=== PATIENT | male | born 1985 | race Caucasian/White ===

== ENCOUNTER 2021-04-05 10:16 | Emergency (ER) | payer OTHER, SELFPAY ==
[2020-04-16 07:10] VITALS: BMI 47.6
[2021-04-05 10:17] VITALS: BP 119/78; PULSE 86; RESP 16; TEMP 35.9; O2SAT 96; BMI 44.7
--- NOTE | 2021-04-05 10:57 | US_ITS ---
STUDY: ABDOMINAL ULTRASOUND - RIGHT UPPER QUADRANT REASON FOR VISIT: Male, 35 years old right upper quadrant pain. Nausea and vomiting. TECHNIQUE: Ultrasound evaluation of the right upper quadrant was performed with real-time and static schaffer-scale imaging. TECHNICAL QUALITY: Adequate. Examination limited due to a combination of factors including obesity and bowel gas. COMPARISON: None. FINDINGS: Liver: The liver measures 17 cm. There is increased echogenicity consistent with fatty infiltration. The bile ducts are within normal limits. There is hepatic color flow. The direction of portal flow is hepatopetal. There is a 1.4 cm x 1.6 cm x 1 cm cyst in the left lobe of the liver. Gallbladder: Normal distended gallbladder. The gallbladder wall measures 2.5 mm. There is a negative sonographic Raya''s sign. There is no pericholecystic fluid. There are no gallstones. Common Bile Duct (C.B.D.): The common bile duct measures 4.1 mm. Pancreas: There is nonvisualization of the pancreas due to overlying bowel gas.. Right Kidney: Normal size of the right kidney. The right kidney measures 11.2 cm x 6 cm x 4.7 cm. Normal renal cortex. The right cortex measures 1.7 cm. There is no demonstrated renal mass or cyst. There is no right hydronephrosis. US/Gallbladder IMPRESSION: 1.4 cm x 1.6 x 2 x 1 cm cyst in the left lobe of the liver. Fatty infiltration of the liver. Electronically Signed: Josh Marcelo MD at 12:30 EDT , Service support ,
[2021-04-05] MEDS: Ondansetron 4 MG/2 ML Vial IV (11:07)
[2021-04-05 11:08] LABS: Absolute Lymphocyte Count 0.53 X10^3/uL (0.83-4.51); Absolute Neutrophil Count 15.1 X10^3/uL (2.0-7.7); Basophil# 0.03 X10^3/uL; Basophil% 0.2 % (0-1); Eosinophils% 0.6 % (0-5); Hemoglobin 16.7 g/dL (13.0-16.5); Lymphocyte # 0.53 X10^3/ul (0.83-4.51); Lymphocyte % 3.2 % (19-41); Mean Corp Hgb Conc 34.8 g/dL (32-36); Mean Corpuscular Hgb 29.2 pg (27.0-32.0); Mean Corpuscular Volume 84.1 fL (80-94); Mean Platelet Vol. 9.1 fl (6.2-12.0); Monocyte# 0.59 X10^3/uL; Monocyte% 3.6 % (0-10); NRBC Flagged by Analyzer 0 % (0-5); Neutrophil # 15.11 X10^3/uL (2.7-7.7); POSITIVE DIFFERENTIAL YES; Platelet Count 259 K/mm3 (150-450); RBC Distribution Width CV 11.9 % (11.6-14.6); RBC Distribution Width SD 36.2 fl (35.1-43.9); Red Blood Count 5.71 M/mm3 (4.6-6.2); White Blood Count 16.4 K/mm3 (4.4-11.0)
[2021-04-05 11:10] LABS: Differential Indicated SCAN CRITERIA MET
[2021-04-05] MEDS: Morphine 4 MG/ML Syringe IV (11:10)
[2021-04-05 11:24] LABS: ALB/GLOB Ratio 1.1 RATIO (0.9-2.4); AST(SGOT) 13 U/L (15-37); Alanine Aminotransfer ALT/SGPT 31 U/L (16-61); Alkaline Phosphatase 79 U/L (45-117); Anion Gap 5 (5-15); BUN 17 mg/dL (7-18); BUN/Creat Ratio 14.5 RATIO (10-20); Calcium,Total 8.6 mg/dL (8.5-10.1); Chloride 107 mmol/L (98-107); Creatinine, Serum 1.17 mg/dL (0.70-1.30); EST Glomerular Filtration Rate 75 mL/min (>60); Est Glom Filt Rate - Afr Amer 91 mL/min (>60); Estimated Creatinine Clearance 82.39 ml/min; Globulin 3.7 g/dL (2.2-4.2); Glucose 121 mg/dL (74-106); Lipase 457 U/L (73-393); Potassium 4.2 mmol/L (3.5-5.1); Protein, Total 7.7 g/dL (6.4-8.2); Sodium Level 139 mmol/L (136-145)
[2021-04-05 11:40] LABS: Differential Comment SCANNED
[2021-04-05 12:16] VITALS: RESP 16
--- NOTE | 2021-04-05 12:33 | CT_ITS ---
STUDY: CT ABDOMEN AND PELVIS WITH CONTRAST REASON FOR EXAM: Male, 35 years old. Right upper quadrant pain. Nausea and vomiting. RADIATION DOSAGE (If Supplied By Facility): CTDIvol = ( 14.18 ) mGy, DLP = ( 1173.63 ) mGycm TECHNIQUE: Transaxial images were obtained from the dome of the diaphragm to the symphysis pubis without oral contrast. IV 100ML ISOVUE 300 was administered. Sagittal and coronal images were reconstructed. Individualized dose optimization techniques were used for this CT. COMPARISON: Comparison is made with prior study dated 12/13/2016. FINDINGS: The visualized lung bases are unremarkable. The visualized portions of the heart are within normal limits. There is a 1.6 m cyst in the medial aspect of the right lobe of the liver in the region of the dome. Normal gallbladder and extrahepatic biliary system. Normal spleen. Normal pancreas. Normal bilateral adrenal glands. Normal right kidney. Normal left kidney. Normal visualized stomach. Normal small intestine. Normal colon. The appendix is visualized and appears normal. Normal abdominal aorta. Normal inferior vena cava. Normal retroperitoneum. Normal urinary bladder. Normal abdominal wall. Normal osseous structures. CT/Abdomen/Pelvis W IV Cont ONLY IMPRESSION: Normal enhanced CT of the abdomen and pelvis. Electronically Signed: Josh Marcelo MD at 13:38 EDT , Service support ,
[2021-04-05 14:00] VITALS: RESP 16
--- NOTE | 2021-04-05 14:35 | EX.ED.DYSGE1 ---
HPI History of Present Illness Chief Complaint: Abd Pain Informant: patient Narrative Narrative: 35-year-old male presenting with abdominal pain, nausea, vomiting. Patient states he woke up with these symptoms this morning. He states he ate a large quantity of food last night but does not believe he ate anything that was undercooked. He has had one episode of vomiting with persistent nausea. Denies blood in his emesis. Denies fever. Denies sick contacts. Prior similar symptoms: Yes Recent Illness/Hospitalization: No PFSH PFS Medical History (Updated 04/05/21 @ 14:[address] Shanelle Bowles MD) Asthma Home Medications ondansetron 4 mg PO Q8H PRN PRN #10 tab 12/13/16 [Rx Last Taken 04/05/21 09:45] ondansetron 4 mg PO Q8H PRN PRN #10 tab 04/05/21 [Rx Last Taken Unknown] Allergy/AdvReac Type Severity Reaction Status Date / Time NUTS Allergy Other Uncoded 04/05/21 10:17 Social History Smoking Status: Never smoker ROS ROS ED Constitutional Constitutional ED: Denies fever(s) Eyes Eyes: Denies change in vision ENT ENT ED: Denies rhinorrhea or sore throat Cardiovascular Cardiovascular: Denies chest pain or palpitations Respiratory/Chest Respiratory/Chest: Denies cough or dyspnea Gastrointestinal Gastrointestinal: Reports abdominal pain, nausea and vomiting; Denies diarrhea Genitourinary Genitourinary ED: Denies dysuria Musculoskeletal Musculoskeletal: Denies myalgias Integumentary Denies rash Neurologic Neurologic: Denies headache(s) Psychiatric Psychiatric: Denies suicidal thoughts EXAM Physical Exam Const Vital Signs: 04/05/21 10:17 04/05/21 12:16 04/05/21 14:00 Temperature 96.6 F L Temperature Source Temporal Pulse Rate 86 Respiratory Rate 16 16 16 Blood Pressure 119/78 Blood Pressure Mean 91 Pulse Ox 96 Oxygen Delivery Method Room Air Positive well nourished and well developed General Appearance ED: well developed HEENT Reports normocephalic and head/scalp atraumatic Eyes PERRL and EOMs intact bilaterally Neck supple General: Negative for tenderness Chest Wall inspection of chest normal Resp normal respiratory effort and clear to auscultation bilaterally Cardio regular rate and regular rhythm GI non-distended Palpation: soft and tender RUQ; Negative for guarding or rebound tenderness present no CVA tenderness Back/Spine no CVA tenderness Extremity normal to inspection Neuro oriented x3 Sensorium / Orientation: alert Psych mental status grossly normal Skin no rashes or lesions noted MDM MDM MDM Narrative Medical decision making narrative: Patient given morphine, Zofran IV. CBC shows white count 16.4. Chemistries unremarkable other than lipase 457. Gallbladder ultrasound shows 1.4 cm x 1.6 x 2 x 1 cm cyst of the left lobe of the liver. CT abdomen pelvis shows no acute process. On reevaluation, patient is resting comfortably. He is given a prescription for Zofran. Advised follow-up with his primary care physician. Advised signs and symptoms for which to return to the ED. Lab Data Attestation: I reviewed the patient's lab results. Labs: Laboratory Results - last 24 hr 04/05/21 04/05/21 11:00 11:00 WBC 16.4 H RBC 5.71 Hgb 16.7 H Hct 48.0 MCV 84.1 MCH 29.2 MCHC 34.8 RDW Std Deviation 36.2 RDW Coeff of Rachel 11.9 Plt Count 259 MPV 9.1 Immature Gran % (Auto) 0.400 Neut % (Auto) 92.0 H Lymph % (Auto) 3.2 L Orange % (Auto) 3.6 Eos % (Auto) 0.6 Baso % (Auto) 0.2 Absolute Neuts (auto) 15.1 H Absolute Lymphs (auto) 0.53 L Nucleated RBC % 0 Differential Comment SCANNED Sodium 139 Potassium 4.2 Chloride 107 Carbon Dioxide 27.0 Anion Gap 5 BUN 17 Creatinine 1.17 Estim Creat Clear Calc 82.39 Est GFR (MDRD) Af Amer 91 Est GFR (MDRD) Non-Af 75 BUN/Creatinine Ratio 14.5 Glucose 121 H Calcium 8.6 Total Bilirubin 0.50 AST 13 L ALT 31 Alkaline Phosphatase 79 Total Protein 7.7 Albumin 4.0 Globulin 3.7 Albumin/Globulin Ratio 1.1 Lipase 457 H Radiography Diagnostic Testing: Radiology Impression Gallbladder Ultrasound 04/05/21 10:57 IMPRESSION: 1.4 cm x 1.6 x 2 x 1 cm cyst in the left lobe of the liver. Fatty infiltration of the liver. Electronically Signed: Josh Marcelo MD at 12:30 EDT , Service support , Abdomen/Pelvis CT 04/05/21 12:33 IMPRESSION: Normal enhanced CT of the abdomen and pelvis. Electronically Signed: Josh Marcelo MD at 13:38 EDT , Service support , Discharge Plan Triage Chief Complaint: Abd Pain ED Provider: Shanelle Bowles Dx/Rx/DC Orders Clinical Impression: Abdominal pain Instructions: Abdominal Pain Prescriptions: New ondansetron 4 mg tablet,disintegrating 4 mg PO Q8H PRN PRN (Reason: Nausea) Qty: 10 RF: 0 No Action ondansetron 4 MG tablet 4 mg PO Q8H PRN PRN (Reason: Nausea) Qty: 10 RF: 0 Primary Care Provider: Care Physician,No Primary Referrals: Edis Gay MD [NON-STAFF] - Care Physician,No Primary [Primary Care Provider] - Disposition Disposition: Home, Self Care
[2021-04-05 14:52] VITALS: RESP 18
== END 2021-04-05 14:53 | disposition home or self-care (01) ==
PROVIDERS: Emergency Provider Emergency Medicine
DX: K76.89 Other specified diseases of liver (principal); K76.0 Fatty (change of) liver, not elsewhere classified; R10.11 Right upper quadrant pain; R11.2 Nausea with vomiting, unspecified
CPT/HCPCS: 74177; 76705; 80053; 83690; 85025; 96374; 96375; 99283; Q9967; A4216; J2405

== ENCOUNTER 2023-08-16 23:40 | Emergency (ER) | payer OTHER, SELFPAY ==
--- NOTE | 2023-08-16 00:04 | RAD_ITS ---
INDICATION: chest pain EXAMINATION/TECHNIQUE: X-RAY - XR Chest 1 View COMPARISON: None. FINDINGS: LINES/DEVICES: None. LUNGS: No consolidation or evidence of an effusion. No evidence of edema or a pneumothorax. MEDIASTINUM AND CARDIOVASCULAR STRUCTURES: Cardiac silhouette is normal in size and contour. Mediastinum is unremarkable. BONES AND SOFT TISSUES: No acute abnormality. RAD/Chest 1 View (Portable) IMPRESSION: No evidence of cardiopulmonary disease. Electronically Signed: Phi Basurto DO at 0:38 EST ,
[2023-08-16 23:41] VITALS: BP 201/120; PULSE 93; RESP 20; TEMP 36.4; O2SAT 94; BMI 50.5
[2023-08-17] VITALS (22 sets, daily range): BP systolic 128–178; BP diastolic 76–117; PULSE 69–96; RESP 9–20; O2SAT 92–97
[2023-08-17] MEDS: Aspirin 81 MG TAB.CHEW 324 MG PO (00:03)
[2023-08-17 00:06] LABS: Absolute Lymphocyte Count 2.92 X10^3/uL (0.83-4.51); Absolute Neutrophil Count 4.5 X10^3/uL (2.0-7.7); Basophil# 0.04 X10^3/uL; Basophil% 0.5 % (0-1); Eosinophil# 0.37 X10^3/uL; Eosinophils% 4.4 % (0-5); Hematocrit 45.8 % (40-54); Hemoglobin 15.7 g/dL (13.0-16.5); Lymphocyte # 2.92 X10^3/ul (0.83-4.51); Lymphocyte % 34.8 % (19-41); Mean Corp Hgb Conc 34.3 g/dL (32-36); Mean Corpuscular Hgb 28.1 pg (27.0-32.0); Mean Corpuscular Volume 82.1 fL (80-94); Mean Platelet Vol. 8.7 fl (6.2-12.0); Monocyte# 0.46 X10^3/uL; Monocyte% 5.5 % (0-10); NRBC Flagged by Analyzer 0 % (0-5); Neutrophil # 4.52 X10^3/uL (2.7-7.7); Platelet Count 326 K/mm3 (150-450); RBC Distribution Width SD 38.6 fl (35.1-43.9); Red Blood Count 5.58 M/mm3 (4.6-6.2); White Blood Count 8.4 K/mm3 (4.4-11.0)
[2023-08-17 00:21] LABS: Anion Gap 6 (5-15); BUN 17 mg/dL (7-18); BUN/Creat Ratio 15.9 RATIO (10-20); Calcium,Total 8.8 mg/dL (8.5-10.1); Chloride 105 mmol/L (98-107); Creatinine, Serum 1.07 mg/dL (0.70-1.30); EST Glomerular Filtration Rate 82 mL/min (>60); Est Glom Filt Rate - Afr Amer 100 mL/min (>60); Estimated Creatinine Clearance 88.37 ml/min; Glucose 145 mg/dL (74-106); Potassium 3.8 mmol/L (3.5-5.1); Sodium Level 137 mmol/L (136-145); Troponin-I HS 4 pg/mL (3.0-78.0)
--- OUTSIDE RECORDS SUMMARY | 2023-08-17 00:22 | XMS RPT_ITS | CCD ---
Author Name Unknown Address [address] [place] [address] Organization [facility] Care Team Providers Care Industrial Pipefitter Journeyman Name Role Phone Burt Ramos MD Primary Care Provider [phone] PROVIDER, UNKNOWN Referring Unavailable BURT RAMOS Primary Care Unavailable BURT RAMOS Primary Care Unavailable YENY ZARATE Attending Unavailable TRE PARKER Referring Unavailable BURT RAMOS Primary Care Unavailable TRE PARKER Referring Unavailable BURT RAMOS Primary Care Unavailable TRE PARKER Attending Unavailable BURT RAMOS Primary Care Unavailable Allergies Allergy Classification Reported Allergen(s) Allergy Type Date of Onset Reaction(s) Facility (8 sources) peanut allergenic extract; Translations: [PEANUT] Drug Allergy 03-08-2021 Itching [facility] Medications Completed/Discontinued Medications Medication Drug Class(es) Dates Sig (Normalized) Sig (Original) mupirocin 0.02 mg/mg topical ointment (2 sources) RNA Synthetase Inhibitor Antibacterial Start: 10-11-2021 End: 12-21-2021 mupirocin (BACTROBAN) 2 % ointment Apply to affected area three times daily. Use in nose as needed 15 g 2 10/11/2021 12/21/2021 Discontinued (Course of therapy completed) Problems Active Problems Problem Classification Problem Date Documented Da te Episodic/Chronic Other connective tissue disease (1 source) Synovial cyst of left popliteal space; Translations: [Synovial cyst of popliteal space [Mckeon], left knee] Episodic Otitis media and related conditions (1 source) Dysfunction of bilateral eustachian tubes; Translations: [Other specified disorders of Eustachian tube, bilateral] Episodic Residual codes; unclassified (1 source) Pain, unspecified; Translations: [Pain] Onset: 01-26-2023 Episodic Past or Other Problems Problem Classification Problem Date Documented Da te Episodic/Chronic Other connective tissue disease (1 source) Synovial cyst of popliteal space [Mckeon], left knee; Translations: [Mckeon's cyst of knee, left] Onset: 01-26-2023 Episodic Other non-traumatic joint disorders (1 source) Pain in left knee; Translations: [Acute pain of left knee] Onset: 12-22-2022 Episodic Other non-traumatic joint disorders (1 source) Effusion, left knee; Translations: [Swelling of joint of left knee] Onset: 12-22-2022 Episodic Results Test Name Value Interpretation Reference Range Facil ity Vital Signs Date Time Vital Sign Value Performing Clinician Mesfin holm 12-21-2021 13:49-0400 Body temperature 98.91 [degF] Tre Parker APRN.CHERY Work Phone: [facility] 12-21-2021 13:49-0400 Body weight 133.81 kg Tre Parker APRN.WOOD SCRAP HANDLER Work Phone: [facility] 12-21-2021 13:49-0400 Diastolic blood pressure 82 mm[Hg] Tre Parker PLANT TECHNICAL SPECIALIST.WOOD SCRAP HANDLER Work Phone: [facility] 12-21-2021 13:49-0400 Heart rate 96 /min Tre Parker PLANT TECHNICAL SPECIALIST.WOOD SCRAP HANDLER Work Phone: [facility] 12-21-2021 13:49-0400 Respiratory rate 16 /min Tre Parker PLANT TECHNICAL SPECIALIST.WOOD SCRAP HANDLER Work Phone: [facility] 12-21-2021 13:49-0400 Systolic blood pressure 120 mm[Hg] Tre Parker PLANT TECHNICAL SPECIALIST.WOOD SCRAP HANDLER Work Phone: [facility] Encounters Encounter Date Encounter Type Care Provider Facility Start: 05-24-2023 End: 05-24-2023 ambulatory BURT Ocasio [facility] Facility:[facility] Start: 01-26-2023 End: 01-26-2023 ambulatory UNKNOWN PROVIDER Facility:[facility] Start: 12-23-2022 ambulatory Pcp (Historical) [facility] Start: 12-23-2022 Telephone encounter Tre Kimberly l PLANT TECHNICAL SPECIALIST.WOOD SCRAP HANDLER Work Phone: [facility] Procedures Date Procedure Procedure Detail Performing Clinician Start: 03-08-2021 Adult depression screening assessment Tre Parker APRN.WOOD SCRAP HANDLER Work Phone: Plan of Treatment Date Care Activity Detail Author Start: 03-08-2026 LIPID SCREEN LIPID SCREEN [facility] Start: 03-07-2024 Urine microalbumin profile DTA P,TDAP,TD (3 - Td or Tdap) [facility] Start: 08-21-2022 DEPRESSION ASSESSMENT DEPRESSION ASS ESSMENT [facility] Start: 04-21-2022 Influenza vaccination INFLUENZA (#1) [facility] Start: 03-08-2022 Adult depression scr eening assessment DEPRESSION SCREENING [facility] Start: 10-27-2021 COVID-19 VACCINE (4 - Booster for Pfizer series) COVID-19 VACCINE (4 - Booster for Pfizer series) [facility] Start: 08-21-2021 DEPRESSION ASSESSMENT DEPRESSION ASS ESSMENT [facility] Immunizations Immunization Date Immunization Notes Care Provider Romeo stallworth 05-27-2022 influenza, seasonal, injectable Tre Parker APRN.WOOD SCRAP HANDLER Work Phone: [facility] 01-22-2021 COVID-19 vaccine, ag e 12+ yr (PFIZER-BIONTECH - PURPLE TOP) Tre Parker PLANT TECHNICAL SPECIALIST.WOOD SCRAP HANDLER Work Phone: [facility] 12-31-2020 COVID-19 vaccine, ag e 12+ yr (PFIZER-BIONTECH - PURPLE TOP) Tre Parker PLANT TECHNICAL SPECIALIST.WOOD SCRAP HANDLER Work Phone: [facility] 06-19-2020 influenza, injectabl e, quadrivalent, preservative free Tre Parker PLANT TECHNICAL SPECIALIST.WOOD SCRAP HANDLER Work Phone: [facility] 09-12-2014 hepatitis B vaccine, adult dosage Tre Aayush PLANT TECHNICAL SPECIALIST.WOOD SCRAP HANDLER Work Phone: [facility] 04-07-2014 hepatitis B vaccine, adult dosage Tre Aayush PLANT TECHNICAL SPECIALIST.WOOD SCRAP HANDLER Work Phone: [facility] 03-07-2014 hepatitis B vaccine, adult dosage Tre Aayush PLANT TECHNICAL SPECIALIST.WOOD SCRAP HANDLER Work Phone: [facility] 03-07-2014 tetanus toxoid, redu rasta diphtheria toxoid, and acellular pertussis vaccine, adsorbed Tre Parker APRN.WOOD SCRAP HANDLER Work Phone: [facility] 04-10-1998 measles, mumps and rubella virus vaccine Tre Parker APRN.WOOD SCRAP HANDLER Work Phone: [facility] 04-10-1998 TD(adult) unspecifie d formulation Tre Parker APRN.WOOD SCRAP HANDLER Work Phone: [facility] Payers Date Payer Category Payer Unknown MMO MMO SUPER[employer] PLUS [id number] 2020-Present [phone] [address] [place] [address] PPO [id number] 2020 Unknown [id number] 2020 Unknown [id number] Social History Date Type Detail Facility Start: 03-08-2021 End: 12-13-2022 Tobacco smoking status NHIS Never smoked tobacco [facility] Start: 03-08-2021 End: 12-13-2022 Tobacco use and exposure Smokeless tobacco non-user [facility] Start: 04-08-2021 End: 12-13-2022 Alcohol intake Current drinker of alcohol (finding) [facility] Start: 03-06-2021 History SDOH Alcohol Frequency 4 [facility] Start: 03-06-2021 End: 08-27-2021 History SDOH Alcohol Std Drinks 2 [facility] Start: 03-06-2021 History SDOH Alcohol Binge 3 [facility] Start: 03-08-2021 History SDOH Alcohol Comment 3-4 beers per week [facility] Start: 03-06-2021 End: 08-27-2021 History SDOH Social Connections Phone 1 [facility] Start: 03-06-2021 History SDOH Physica l Activity MPS 6 [facility] Start: 07-17-2021 Education 18 [facility] Start: 1985 Sex Assigned At Not on file C [facility] Clinical Notes 12-21-2021 to 05-24-2023 Rae Willis - 12/23/2022 4:45 PM EDTTelephone Encounter - Ange Urias, ILIANA - 12/23/2022 10:15 AM EDTTelephone Encounter - Tre Parker APRN.CNP - 12/23/2022 7:32 AM EDT Note Date & Type Note Facility 05-24-2023 Note HNO ID: [id number] Author: Margy Cox APRN.CHERY Service: ? Author Type: Nurse Practitioner Type: Progress Notes Filed: 05/24/2023 9:34 AM Note Text: Subjective The history is provided by the patient and the spouse. No speech and language tutor was used. HPI Eliseo Alvarez is a 37 year old male who presents today for CC of sore throat for one day. He is also having headache and body aches, fever. He has used ibuprofen with short term relief. No known exposure to strep, viral illness or covid BP 136/84 Pulse 112 Temp 37.3 ?C (99.1 ?F) Resp 18 Wt (!) 142.7 kg (314 lb 9.6 oz) SpO2 96% BMI 47.83 kg/m? Social History Tobacco Use Smoking status: Never Smokeless tobacco: Never Vaping Use Vaping Use: Never used Substance Use Topics Alcohol use: Yes Comment: 3-4 beers per week Drug use: Not Currently PAST MEDICAL HISTORY Diagnosis Date Childhood asthma without complication grew out of it I have confirmed and edited as necessary, the [facility] Review of Systems Constitutional: Positive for malaise/fatigue. Negative for chills and fever. HENT: Positive for sore throat. Negative for congestion, ear pain and sinus pain. Respiratory: Negative for cough, sputum production, shortness of breath and wheezing. Cardiovascular: Negative for chest pain. Gastrointestinal: Negative for abdominal pain, diarrhea, nausea and vomiting. Musculoskeletal: Positive for myalgias. Neurological: Positive for headaches. Objective Physical Exam Vitals and nursing note reviewed. Constitutional: Appearance: He is not toxic-appearing. HENT: Head: Normocephalic and atraumatic. Right Ear: Tympanic membrane, ear canal and external ear normal. Left Ear: Tympanic membrane, ear canal and external ear normal. Nose: No mucosal edema, congestion or rhinorrhea. Right Sinus: No maxillary sinus tenderness or frontal sinus tenderness. Left Sinus: No maxillary sinus tenderness or frontal sinus tenderness. Mouth/Throat: Pharynx: Uvula midline. Pharyngeal swelling present. No oropharyngeal exudate or posterior oropharyngeal erythema (moderate). Tonsils: No tonsillar abscesses. Cardiovascular: Rate and Rhythm: Normal rate and regular rhythm. Heart sounds: Normal heart sounds. Pulmonary: Effort: Pulmonary effort is normal. Breath sounds: Normal breath sounds. No decreased breath sounds, wheezing, rhonchi or rales. Lymphadenopathy: Head: Right side of head: No submental, submandibular, tonsillar or preauricular adenopathy. Left side of head: No submental, submandibular, tonsillar or preauricular adenopathy. Cervical: No cervical adenopathy. Right cervical: No superficial cervical adenopathy. Left cervical: No superficial cervical adenopathy. Neurological: Mental Status: He is alert. ASSESSMENT/PLAN: 1. Sore throat - ICD9: 462, ICD10: J02.9 (primary diagnosis) - STREP A MOLECULAR (POC) 2. Strep throat - ICD9: 034.0, ICD10: J02.0 - suspect strep - Group A strep molecular testing positive - Amoxicillin for 10 days. - Discussed supportive care treatment with fluids, rest and analgesia. - The patient may also use warm salt water gargles, throat lozenges and/or OTC throat spray as needed. - Contagious dz precautions discussed- including considered contagious until on antibiotics for 24 hours - The patient should follow up in one week if symptoms persist or worsen - Call back if drooling, increased temperature, symptoms of dehydration and/or still sick in one week Diagnosis and treatment plan were discussed and questions were answered to the patient's satisfaction. Pt acknowledged understanding of concepts and follow up plan. Specific signs and symptoms that would indicate the need for higher level of care were discussed in detail warranting prompt ER evaluation. Margy Cox APRN.[facility] 01-26-2023 Note HNO ID: [id number] Author: Yeny Zarate PA-C Service: ? Author Type: Physician Cherry Pitter Type: Progress Notes Filed: 01/29/2023 1:59 PM Note Text: Yeny Zarate PA-C Department of Orthopaedics Orthopaedics [address] [address] Dept: [phone] January 26, 2023 SUBJECTIVE: CHIEF COMPLAINT: Swelling, New, and Knee Pain of the Left Knee HPI: Mr. Eliseo Alvarez is a 37 year old male. He presents today with resolved left knee pain and swelling. He was seen previously by primary care where he was started on a prednisone taper and consulted to orthopedics. He presents today for follow up. Today he rate his pain a 0 on a scale of 0 to 10 at rest. He states that the swelling/pain/stiffness he was experiencing a month ago resolved with the prednisone taper. He denies any recent injury, numbness/tingling, weakness, locking/catching, giving out or previous left knee surgery. This patient was consulted to orthopedics by Tre Parker APRN.CNP. This note will be communicated back to them via [employer]. Past Medical History: PAST MEDICAL HISTORY Diagnosis Date Childhood asthma without complication grew out of it Past Surgical History: PAST SURGICAL HISTORY Procedure Laterality Date NONE Family History: FAMILY HISTORY Problem Relation Age of Onset Hypothyroidism Mother Depression Father Psoriasis Brother Alzheimer's Disease Maternal Grandmother Pancreatic Cancer Maternal Grandfather Lung Cancer Paternal Grandfather Social History: Social History Tobacco Use Smoking status: Never Smokeless tobacco: Never Vaping Use Vaping Use: Never used Substance Use Topics Alcohol use: Yes Comment: 3-4 beers per week Drug use: Not Currently Medications: Current Outpatient Medications Medication Sig sertraline (ZOLOFT) 100 mg tablet Take 1 tablet by mouth once daily. No current facility-administered medications for this visit. Allergies: Peanut ROS: General: negative for fatigue, malaise, weight loss/gain Musculoskeletal: see HPI Psych: no depression, anxiety OBJECTIVE: Mr. Eliseo Alvarez is a pleasant 37 year old in no apparent distress. Gen:There were no vitals taken for this visit. nl development, obese, no deformities ENT: Normocephalic, normal hearing, moist mucosa CV: Pulses:DP/PT= 2+ and symmetric, capillary refill < 2 secs, no peripheral edema/varicosities Skin: no rash, bruising or lesions. Good turgor. Psych: cooperative and appropriate, alert and oriented x 3, good mood and affect. Musculoskeletal: Right knee, bilateral hips and ankles FROM without pain or limitation. LT Knee: Alignment: Varus deformity, Correctable Active Extension 0 and Active Flexion 110 Extension lag: No Pain with ROM: No Effusion: None Erythema: No Ecchymosis: No Tender to the palpation of None Pain with patellar compression: No Stability: Anterior/Posterior stable and Varus/Valgus stable Patellofemoral crepitus: No Quad Atrophy: No Bel's: Negative Anterior drawer: Negative IMAGIN01/27/2023 7:56 AM - Radiology, Oru In Impression IMPRESSION: Unremarkable left knee Starchmaker: PSCRose Mary Transcribe Date/Time: Jan 27 2023 7:53A Dictated by : NELIDA HERRING MD This examination was interpreted and the report reviewed and electronically signed by: NELIDA HERRING MD on Jan 27 2023 7:53AM EST Results-Findings * * *Final Report* * * DATE OF EXAM: Jan 26 2023 1:23PM CHARLI [id number] - XR KNEE 4V AP/PA BOTH+LAT/NIKOLAY LT / PROCEDURE REASON: [id number] * * * * Physician Interpretation * * * * PROCEDURE: Left knee INDICATION: Pain .left knee pain TECHNIQUE: XR KNEE 4V AP/PA BOTH+LAT/NIKOLAY LT COMPARISON: None FINDINGS: No fracture or dislocation. No significant joint space narrowing or marginal spur formation. No joint effusion or acute soft tissue abnormality. 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 Patient had complete resolution of his symptoms with prednisone taper. No active treatment recommended at this time. Patient agreeable with plan and will follow up as needed. FOLLOW UP INSTRUCTIONS: As needed Yeny Zarate PA-C [facility] 01-26-2023 Note HNO ID: [id number] Author: Meena Cyr, CT Service: Radiology Author Type: Technologist Type: Progress Notes Filed: 01/26/2023 1:25 PM Note Text: Radiology Service Progress Note PATIENT NAME: Eliseo Alvarez DATE OF SERVICE: January 26, 2023 TIME: 1:24 PM PATIENT IDENTITY VERIFICATION COMPLETED USING TWO (2) IDENTIFIERS: Name and Date of confirmed by patient verbally and Name and Date of confirmed by identification band. FALL SCREENING: Has the patient had 2 falls in the last year or 1 fall with injury or currently using an Ambulatory Assistive Device (Walker, Cane, Wheelchair, Crutches, etc.)? No PATIENT GENDER DATA: Male PATIENT RELEVANT IMPLANT DATA REVIEWED: Not Applicable RADIOLOGY DEPARTMENT: General X-ray: Exam(s) Completed: Lower Extremity X-Ray(s): Knee, AP / Lat / Tunne / Merchant Left PERIPHERAL IV DATA: Not applicable SIGNED BY: LANETTE Sandhu January 26, 2023 1:24 PM [facility] 12-23-2022 Note HNO ID: [id number] Author: Rae Willis Service: ? Author Type: ? Type: Progress Notes Filed: 12/23/2022 4:46 PM Note Text: POPULATION HEALTH NAVIGATION OUTREACH Action/FYI Left vm Patient Identified by Name and : NO Outreach Outcome/Action Unable to reach patient: Left message [employer] message sent Did you use a PCP flex slot to schedule this appointment? No Reason for Outreach Care Gap or Scheduling/Wellness visits Payer: Payor: MMO / Plan: MMO SUPERMED PPO / Product Type: PPO / Care Gap Reviewed:: Specialty Scheduling Reminder: Reminder note to check Health Maintenance for items below Health Maintenance items due: COVID-19 VACCINE(4 - Booster for Pfizer series) due on 10/27/2021 DEPRESSION ASSESSMENT Never done Navigation Signature: Rae Willis December 23, 2022 4:45 PM [facility] 12-23-2022 History of Present illness Narrative POPULATION HEALTH NAVIGATION OUTREACH Action/FYI Left vm Patient Identified by Name and : NO Outreach Outcome/Action Unable to reach patient: Left message [employer] message sent Did you use a PCP flex slot to schedule this appointment? No Reason for Outreach Care Gap or Scheduling/Wellness visits Payer: Payor: MMO / Plan: MMO SUPERMED PPO / Product Type: PPO / Care Gap Reviewed:: Specialty Scheduling Reminder: Reminder note to check Health Maintenance for items below Health Maintenance items due: COVID-19 VACCINE(4 - Booster for Pfizer series) due on 10/27/2021 DEPRESSION ASSESSMENT Never done Navigation Signature: Rae Willis December 23, 2022 4:45 PM documented in this encounter [facility] 12-23-2022 Note Patient Outreach (AC CC) JERRYELISEO Howell ([id number]) 1985 M Date Time Provider Department 12/23/22 PCP (HISTORICAL) [facility] During your visit today, we recorded the following information about you: Rae Willis 12/23/2022 4:46 PM Signed POPULATION HEALTH NAVIGATION OUTREACH Action/FYI Left vm Patient Identified by Name and : NO Outreach Outcome/Action Unable to reach patient: Left message [employer] message sent Did you use a PCP flex slot to schedule this appointment? No Reason for Outreach Care Gap or Scheduling/Wellness visits Payer: Payor: MMO / Plan: MMO SUPERMED PPO / Product Type: PPO / Care Gap Reviewed:: Specialty Scheduling Reminder: Reminder note to check Health Maintenance for items below Health Maintenance items due: COVID-19 VACCINE(4 - Booster for Pfizer series) due on 10/27/2021 DEPRESSION ASSESSMENT Never done Navigation Signature: Rae Willis December 23, 2022 4:45 PM Allergies As of Date: 12/23/2022 Noted Allergy Reaction PEANUT 03/08/2021 9 - Itching Date Reviewed: 12/13/2022 Reviewed by: Tre Parker APRN.WOOD SCRAP HANDLER - Fully Assessed Prescriptions as of 12/23/2022 - sertraline (ZOLOFT) 100 mg tablet Take 1 tablet by mouth once daily. Problem List As Of Date: 12/23/2022 (None) Encounter Status:Closed by RAE WILLIS on 12/23/22 [facility] 12-23-2022 Miscellaneous Notes Patient active MyChart. Patient notified via [employer] message. Ange Urias MA Please let the patient know that the ultrasound of his left leg shows no DVT. 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 I referred him to orthopedics. Sometimes they will offer joint injection and or drainage for treatment. Tre Parker APRN.CNP documented in this encounter [facility] 12-13-2022 Note HNO ID: [id number] Author: Tre Parker APRN.CNP Service: ? Author Type: Nurse Practitioner Type: Progress Notes Filed: 12/13/2022 2:16 PM Note Text: Chief Complaint Patient presents with: Knee Pain: LT x 1 week HPI Eliseo Alvarez is a 37 year old male who presents here today for Above Complaints. Patient complains of: pain of knee. Duration: 1 week Location:left, posterior Associated Symptoms: pain Aggravating factors:flexion Things that improve symptoms : not flexing knee Moved to new house, mowing a lot. Also walks a lot. No trauma or incident that he can think of that caused. No calf swelling Past medical history, appointments, medications, allergies reviewed. EXAM: BP 128/80 Pulse 68 Resp 16 Wt (!) 143.3 kg (316 lb) BMI 48.05 kg/m? General Appearance: Well appearing, alert, in no acute distress, well-hydrated, well nourished. and Obese. Musculoskeletal: KNEE:Location: Left Redness: No. Warmth: No. Crepitus: No. Effusion: No. Posterior knee has moderate size swelling present. More prominent when knee is extended Joint line tenderness: No. Lateral tenderness: No. Medial tenderness: No. Drawer sign negative: Yes. Medial or lateral laxity: No. ASSESSMENT/PLAN: 1. Acute pain of left knee - ICD9: 719.46, ICD10: M25.562 (primary diagnosis) -Likely Mckeon's cyst versus effusion. Start steroid for inflammation reduction. Trial of ice application. Get ultrasound to further investigate. - US LEG VEIN DVT UNL VAS LAB - METHYLPREDNISOLONE 4 MG TABLETS IN A DOSE PACK 2. Swelling of joint of left knee - ICD9: 719.06, ICD10: M25.462 -See #1 - US LEG VEIN DVT UNL VAS LAB Tre Parker APRN.CNP Medical Decision Making: Problems: Low: Acute, uncomplicated illness or injury Data: Unique test(s) ordered: 1 Risk: Moderate: Drug management Medical Decision Making Level: 3 - Low This note was partly generated using [employer] voice recognition dictation and may contain some misspelled or inaccurate words missed on review. [facility] 08-23-2022 Miscellaneous Notes The following approved medication requests have been transmitted electronically. Requested Prescriptions Pending Prescriptions Disp Refills sertraline (ZOLOFT) 100 mg tablet 90 tablet 3 Sig: Take 1 tablet by mouth once daily. Tre Parker APRN.CNP Last office visit: 12/21/21 F/u scheduled: none Alejandra Parmar Ma documented in this encounter [facility] 05-24-2022 Miscellaneous Notes The following approved medication requests have been transmitted electronically. Requested Prescriptions Pending Prescriptions Disp Refills sertraline (ZOLOFT) 100 mg tablet 90 tablet 3 Sig: Take 1 tablet by mouth once daily. Tre Parker APRN.CNP Patient has been identified by name and date of : Yes Patient phones for refill(s): Requested Prescriptions Pending Prescriptions Disp Refills sertraline (ZOLOFT) 100 mg tablet 30 tablet 5 Sig: Take 1 tablet by mouth once daily. Date of last office visit in primary care: 12/21/21 Last 2 Encounter Wt Readings: Date: Wt: 12/21/2021 133.8 kg (295 lb) 04/08/2021 128.8 kg (284 lb) Previous labs/tests for medication: Not applicable Thank you. Zehra Stanley LPN documented in this encounter [facility] 12-21-2021 History of Present illness Narrative Chief Complaint Patient presents with: Ear Infection HPI Eliseo Alvarez is a 36 year old male who presents here today for above complaints. Patient here for follow-up from urgent care. Was there for bilateral acute otitis media. Treated with Augmentin. States that ear pain has resolved. Muffled hearing has resolved. Ongoing crackling, popping of the ear when blowing nose or opening and closing jaw. He has seasonal allergies that have been worse lately also. Using otc antihistamine. Past medical history, appointments, medications, allergies reviewed. Previous Medical History PAST MEDICAL HISTORY Diagnosis Date Childhood asthma without complication grew out of it Previous Surgical History PAST SURGICAL HISTORY Procedure Laterality Date NONE Family History FAMILY HISTORY Problem Relation Age of Onset Hypothyroidism Mother Depression Father Psoriasis Brother Alzheimer's Disease Maternal Grandmother Pancreatic Cancer Maternal Grandfather Lung Cancer Paternal Grandfather Patient Allergies ALLERGIES Allergen Reactions Peanut Itching Current Medications Current Outpatient Medications on File Prior to Visit Medication Sig sertraline (ZOLOFT) 100 mg tablet TAKE 1 TABLET BY MOUTH EVERY DAY mupirocin (BACTROBAN) 2 % ointment Apply to affected area three times daily. Use in nose as needed ondansetron orally disintegrating (ZOFRAN ODT) 4 mg disintegrating tablet Take 1 tablet by mouth every 8 hours as needed for nausea/vomiting. No current facility-administered medications on file prior to visit. Social History Social History Tobacco Use Smoking status: Never Smoker Smokeless tobacco: Never Used Vaping Use Vaping Use: Never used Substance Use Topics Alcohol use: Yes Comment: 3-4 beers per week Drug use: Not Currently REVIEW OF SYSTEMS: as above Reviewed relevant PMHx, PSHx, Social Hx, current medications and allergies. EXAM: BP 120/82 Pulse 96 Temp 37.2 C (98.9 F) (Left Tympanic) Resp 16 Wt 133.8 kg (295 lb) BMI 44.85 kg/m General Appearance: Well appearing, alert, in no acute distress, well-hydrated, well nourished.. Head: Normocephalic, no masses, lesions, tenderness or abnormalities. Eyes: Anicteric sclera. Pupils are equally round and reactive to light. Extraocular movements are intact. . Ears: External ears normal, canals clear. Health Maintenance List DEPRESSION SCREENING due on 03/08/2022 DTAP,TDAP,TD(3 - Td or Tdap) due on 03/07/2024 LIPID SCREEN due on 03/08/2026 INFLUENZA Completed COVID-19 VACCINE Completed MENINGOCOCCAL CONJUGATE Aged Out HEPATITIS C SCREENING Discontinued HIV SCREENING Discontinued ASSESSMENT/PLAN: 1. Eustachian tube dysfunction, bilateral - ICD9: 381.81, ICD10: H69.83 - Advised restarting Flonase 2 puffs daily per nostril. Continue with otc allergy care. Tre Parker APRN.CNP This note was partly generated using [employer] voice recognition dictation and may contain some misspelled or inaccurate words missed on review. documented in this encounter [facility] Mckeon's cyst of knee, left- Primary documented in this encounter [facility] Reason for Referral Specialty Diagnoses / Procedures Referred By Idalia neal Referred To Contact Orthopedics Diagnoses Mckeon's cyst of knee, left Procedures CONSULT TO ORTHOPAEDICS OFFICE/OUTPATIENT [facility] 60-74 MINUTES Tre Parker APRN.[employer] [address] [place] [address] Referral ID Status Reason Start Date Expiration Date Visits Requested Visits Authorized [id number] Authorized PCP Requested Referral 12/23/2022 12/23/2023 1 1 Summary Purpose Family History No Family History Records FoundNo Family History Records Found Advance Directives No Advanced Directives Records FoundNo Advanced Directives Records Found Additional Source Comments Source Comments (unrecognize d section and content) In the event this informatio n is protected by the Federal Confidentiality of Alcohol and Drug Abuse Patient Records regulations: The Federal rules restrict any use of the information to criminally investigate or prosecute any alcohol or drug abuse patient.[facility] the event this information is protected by the Federal Confidentiality of Alcohol and Drug Abuse Patient Records regulations: The Federal rules restrict any use of the information to criminally investigate or prosecute any alcohol or drug abuse patient.[facility] the event this information is protected by the Federal Confidentiality of Alcohol and Drug Abuse Patient Records regulations: The Federal rules restrict any use of the information to criminally investigate or prosecute any alcohol or drug abuse patient.[facility] the event this information is protected by the Federal Confidentiality of Alcohol and Drug Abuse Patient Records regulations: The Federal rules restrict any use of the information to criminally investigate or prosecute any alcohol or drug abuse patient.[facility] the event this information is protected by the Federal Confidentiality of Alcohol and Drug Abuse Patient Records regulations: The Federal rules restrict any use of the information to criminally investigate or prosecute any alcohol or drug abuse patient.[facility] the event this information is protected by the Federal Confidentiality of Alcohol and Drug Abuse Patient Records regulations: The Federal rules restrict any use of the information to criminally investigate or prosecute any alcohol or drug abuse patient.[facility] Care Teams (unrecognized sec tion and content) Industrial Pipefitter Journeyman Relationship Specialty Start Date End Date Burt Ramos MD [address] [place] [address] PCP - General Family Practice 03/08/21 Industrial Pipefitter Journeyman Relationship Specialty Start Date End Date Burt Ramos MD [address] [place] [address] PCP - General Family Medicine 03/08/21 Industrial Pipefitter Journeyman Relationship Specialty Start Date End Date Burt Ramos MD [address] [place] [address] PCP - General Family Medicine 03/08/21 Industrial Pipefitter Journeyman Relationship Specialty Start Date End Date Burt Ramos MD [address] [place] [address] PCP - General Family Medicine 03/08/21 Industrial Pipefitter Journeyman Relationship Specialty Start Date End Date Burt Ramos MD [address] [place] [address] PCP - General Family Medicine 03/08/21 Reason for Visit (unrecogniz ed section and content) Reason Onset Date Comments Refill Request 05/23/2022 Reason Onset Date Comments Refill Request 08/22/2022 Reason Comments Results (unrecognized sect ion and content) No Status Records FoundNo Status Records Found INFORMATION SOURCE (unrecogn ized section and content) DATE CREATED AUTHOR AUTHOR'S ORGANIZ ATION 05/28/2023 [facility] FOR RECORDS PERTAINING TO PATIENTS WHO ARE OR HAVE BEEN ENROLLED IN A CHEMICAL DEPENDENCY/SUBSTANCEABUSE PROGRAM, SOME INFORMATION MAY BE OMITTED. This clinical summary was aggregated from multiple sources. Caution should be exercised in using it in the provision of clinical care. This summary normalizes information from multiple sources, and as a consequence, information in this document may materially change the coding, format and clinical context of patient data. In addition, data may be omitted in some cases. CLINICAL DECISIONS SHOULD BE BASED ON THE PRIMARY CLINICAL RECORDS. [facility] [employer] [facility]. provides no warranty or guarantee of the accuracy or completeness of information in this document.
--- NOTE | 2023-08-17 00:32 | EDS_ITS ---
HPI History of Present Illness Chief Complaint: Chest Pain Narrative Narrative: 37-year-old presenting with chest pain/epigastric pain. Started at 10 PM which was a couple of hours ago. Patient states it feels like it is burning and it radiates up into his esophagus. He states he noted it radiated to his left jaw as well. No dizziness, lightheadedness, nausea, vomiting. No chest pressure or pleuritic chest pain. No fevers or chills. Patient admits that he had some salsa just prior to this. He also earlier ate a chicken wrap with hot sauce on it. Patient denies history of GERD although he did take some Tums and this did help the pain. Patient denies any cardiac history. He is non-smoker. [facility] Medical History Anxiety Asthma Depression Home Medications sertraline 100 mg tablet 100 mg PO DAILY 08/16/23 [History Last Taken Unknown] omeprazole 20 mg capsule,delayed release 20 mg PO DAILY #30 CAPSULES 08/17/23 [Rx Last Taken Unknown] Allergy/AdvReac Type Severity Reaction Status Date / Time nut - unspecified [nuts] Allergy Other Verified 08/16/23 23:42 Social History Smoking Status: Never smoker [facility] ED Constitutional Constitutional ED: Denies chills, fever(s) or sweats Eyes Eyes: Denies blurry vision or change in vision ENT ENT ED: Denies ear pain or sore throat Cardiovascular Cardiovascular: Reports as per HPI; Denies chest pain, palpitations or racing heartbeat Respiratory/Chest Respiratory/Chest: Denies cough, dyspnea or sputum Gastrointestinal Gastrointestinal: Reports other Details: Epigastric pain, dyspepsia ; Denies abdominal pain, constipation, diarrhea, nausea or vomiting Genitourinary Genitourinary ED: Denies dysuria, hematuria or urinary frequency Musculoskeletal Musculoskeletal: Denies arthralgias, myalgias or neck pain Integumentary Denies abscess, Abrasions or rash Neurologic Neurologic: Denies headache(s), paresthesias or weakness Psychiatric Psychiatric: Denies anxiety, depression, suicidal ideation or suicidal thoughts Endocrine Endocrinology: Denies polydipsia or polyuria EXAM Physical Exam Const Vital Signs: 08/16/23 23:41 08/16/23 23:45 08/16/23 23:56 Temperature 97.6 F L Temperature Source Temporal Pulse Rate 93 Respiratory Rate 20 H Respiratory Effort Normal Respiratory Pattern Normal Blood Pressure 201/120 H Blood Pressure Mean 147 Pulse Ox 94 Oxygen Delivery Method Room Air Room Air 08/17/23 00:05 08/17/23 00:14 08/17/23 00:15 Temperature Temperature Source Pulse Rate 81 79 76 Respiratory Rate 16 13 12 Respiratory Effort Respiratory Pattern Blood Pressure 142/90 H 178/110 H Blood Pressure Mean 107 122 Pulse Ox 97 96 96 Oxygen Delivery Method Room Air 08/17/23 00:20 08/17/23 00:27 08/17/23 00:30 Temperature Temperature Source Pulse Rate 75 88 79 Respiratory Rate 12 17 16 Respiratory Effort Respiratory Pattern Blood Pressure 168/109 H 160/105 H Blood Pressure Mean 124 123 Pulse Ox 97 94 94 Oxygen Delivery Method 08/17/23 00:40 08/17/23 00:50 08/17/23 01:00 Temperature Temperature Source Pulse Rate 77 81 86 Respiratory Rate 15 17 15 Respiratory Effort Respiratory Pattern Blood Pressure 165/108 H 167/105 H 177/117 H Blood Pressure Mean 125 120 132 Pulse Ox 95 94 96 Oxygen Delivery Method 08/17/23 01:10 08/17/23 01:20 08/17/23 01:30 Temperature Temperature Source Pulse Rate 84 78 77 Respiratory Rate 14 15 15 Respiratory Effort Respiratory Pattern Blood Pressure 159/112 H 176/106 H 172/109 H Blood Pressure Mean 128 122 124 Pulse Ox 94 94 92 Oxygen Delivery Method 08/17/23 01:40 08/17/23 01:50 08/17/23 01:50 Temperature Temperature Source Pulse Rate 96 73 73 Respiratory Rate 20 H 13 13 Respiratory Effort Respiratory Pattern Blood Pressure 139/76 H 140/95 H Blood Pressure Mean 97 108 Pulse Ox 93 Oxygen Delivery Method Room Air 08/17/23 02:00 08/17/23 02:10 08/17/23 02:20 Temperature Temperature Source Pulse Rate 78 83 84 Respiratory Rate 15 15 14 Respiratory Effort Respiratory Pattern Blood Pressure 153/97 H 158/99 H 165/110 H Blood Pressure Mean 106 118 128 Pulse Ox 94 95 Oxygen Delivery Method Room Air 08/17/23 02:30 08/17/23 02:40 08/17/23 02:50 Temperature Temperature Source Pulse Rate 82 73 79 Respiratory Rate 9 L 17 11 L Respiratory Effort Respiratory Pattern Blood Pressure 128/84 H 156/98 H 143/90 H Blood Pressure Mean 98 112 105 Pulse Ox 94 95 95 Oxygen Delivery Method 08/17/23 03:00 08/17/23 03:10 Temperature Temperature Source Pulse Rate 69 73 Respiratory Rate 10 L 11 L Respiratory Effort Respiratory Pattern Blood Pressure 142/96 H 146/98 H Blood Pressure Mean 109 110 Pulse Ox 95 93 Oxygen Delivery Method Room Air Positive well nourished and obese General Appearance ED: NAD Nutritional Appearance: obese HEENT Reports moist mucous membranes Eyes PERRL and EOMs intact bilaterally Chest Wall inspection of chest normal Resp normal respiratory effort and clear to auscultation bilaterally Auscultation: Negative for rales, rhonchi or wheezes Cardio regular rate and regular rhythm Neuro oriented x3 and CN's II-XII intact bilaterally Sensorium / Orientation: awake and alert Psych mental status grossly normal Skin no rashes or lesions noted Heart Score History: Slightly/Non-Suspicious ECG: Normal Age: </= 45 years Risk Factors: 1 or 2 Risk Factors Troponin: </= Normal Limit Score: 1 MDM MDM MDM Narrative Medical decision making narrative: 37-year-old male with chest pain/epigastric pain. He states he feels like he is having acid reflux. He ate some salsa prior to coming in and having episode as well as a wrap with hot sauce on it. Denies history of acid reflux. No cardiac history. Differential includes ACS, pneumonia, GERD, gastritis, dehydration, electrolyte imbalance. Considered PE however patient is PERC negative. Did consider dissection however patient is not having ripping or tearing pain. I offered the patient a GI cocktail as he sounds like he is having acid reflux symptoms and he was amenable to this. He states he had 1 in the past. CBC, BMP unremarkable. High-sensitivity troponin is 4. EKG on my interpretation shows a normal sinus rhythm at a ventricular rate of 87 bpm without sign of ischemic change or dysrhythmia. Chest x-ray my interpretation is no acute process. Delta troponin is 5. Patient reports he feels much better after GI cocktail. Given negative workup and improvement with GI cocktail patient is on omeprazole. To be discharged home to follow-up with his PCP. Impression: 1. Chest pain 2. Gastritis Lab Data Attestation: I reviewed the patient's lab results. Labs: Laboratory Results - last 24 hr 12/27/23 12/28/23 23:56 02:41 WBC 8.4 RBC 5.58 Hgb 15.7 Hct 45.8 MCV 82.1 MCH 28.1 MCHC 34.3 RDW Std Deviation 38.6 RDW Coeff of Rachel 13.0 Plt Count 326 MPV 8.7 Immature Gran % (Auto) 0.800 Neut % (Auto) 54.0 Lymph % (Auto) 34.8 [place] % (Auto) 5.5 Eos % (Auto) 4.4 Baso % (Auto) 0.5 Absolute Neuts (auto) 4.5 Absolute Lymphs (auto) 2.92 Nucleated RBC % 0 Sodium 137 Potassium 3.8 Chloride 105 Carbon Dioxide 26.0 Anion Gap 6 BUN 17 Creatinine 1.07 Estim Creat Clear Calc 88.37 Est GFR (MDRD) Af Amer 100 Est GFR (MDRD) Non-Af 82 BUN/Creatinine Ratio 15.9 Glucose 145 H Calcium 8.8 Troponin I High Sens 4 5 Radiography Diagnostic Testing: Clinical Impression(s) from Imaging Studies Chest X-Ray 08/16/23 00:04 IMPRESSION: No evidence of cardiopulmonary disease. Electronically Signed: Phi Basurto DO at 0:38 EST , Discharge Plan Triage Chief Complaint: Chest Pain ED Provider: David Saunders Dx/Rx/DC Orders Instructions: ED Gastritis (Adult), ED Chest Pain, Noncardiac (Child) Prescriptions: New omeprazole 20 mg capsule,delayed release(DR/EC) 20 mg PO DAILY Qty: 30 0RF No Action sertraline 100 mg tablet 100 mg PO DAILY Patient Comments: TAKE 1 TABLET BY MOUTH EVERY DAY Primary Care Provider: Edis Gay Referrals: Edis Gay MD [Primary Care Provider] - Disposition Disposition: Home, Self Care
[2023-08-17] MEDS: Mag Hydrox/Al Hydrox/Simeth 30 ML UDC PO (00:54)
[2023-08-17 03:03] LABS: Troponin-I HS 5 pg/mL (3.0-78.0)
== END 2023-08-17 03:18 | disposition home or self-care (01) ==
PROVIDERS: Emergency Provider Student in an Organized Health Care Education/Training Program; PCP Family Medicine; Visit Provider Student in an Organized Health Care Education/Training Program
DX: R07.9 Chest pain, unspecified (principal); K29.70 Gastritis, unspecified, without bleeding; F41.9 Anxiety disorder, unspecified; F32.A Depression, unspecified; E66.9 Obesity, unspecified; Z79.899 Other long term (current) drug therapy
CPT/HCPCS: 71045; 80048; 84484; 85025; 93005; 99284; A4216

== ENCOUNTER 2025-06-12 01:26 | Emergency (ER) | payer OTHER, SELFPAY ==
[2025-06-12 01:26] VITALS: BP 187/111; PULSE 71; RESP 18; TEMP 36.4; O2SAT 99; BMI 48.8
--- NOTE | 2025-06-12 01:48 | EKG12_ITS ---
Test Reason : CP Blood Pressure : */* mmHG Vent. Rate : 81 BPM Atrial Rate : 81 BPM P-R Int : 136 ms QRS Dur : 96 ms QT Int : 398 ms P-R-T Axes : 28 10 4 degrees QTcB Int : 462 ms Normal sinus rhythm Normal ECG Confirmed by Harlan Morrison [id number]), publishing editor SANDY MADISON ([id number]) on 06/12/2025 9:39:20 AM Referred By: KARTHIK Confirmed By: Harlan Morrison
--- NOTE | 2025-06-12 01:50 | RAD_ITS ---
PROCEDURE: CHEST PA AND LATERAL 06/11/2025 REASON FOR EXAM: CHEST PAIN TECHNIQUE: Procedure Code: RADCXR Modality: DX Procedure: CHEST PA AND LATERAL COMPARISON: None FINDINGS: No focal consolidation. No pleural effusion or pneumothorax. Cardiac silhouette is within normal limits. No acute fractures. RAD/Chest PA and Lateral IMPRESSION: No focal consolidations. Reading Location: [id number]
[2025-06-12 01:59] LABS: Hematocrit 42.2 % (40-54); Hemoglobin 14.6 g/dL (13.0-16.5); Immature Granulocytes Count 0.030 X10^3/uL (0.0-0.0); Mean Corp Hgb Conc 34.6 g/dL (32-36); Mean Corpuscular Volume 81.0 fL (80-94); Mean Platelet Vol. 9.3 fl (6.2-12.0); NRBC Flagged by Analyzer 0 % (0-5); Platelet Count 262 K/mm3 (150-450); RBC Distribution Width CV 12.4 % (11.6-14.6); RBC Distribution Width SD 36.4 fl (35.1-43.9); Red Blood Count 5.21 M/mm3 (4.6-6.2); White Blood Count 8.8 K/mm3 (4.4-11.0)
--- OUTSIDE RECORDS SUMMARY | 2025-06-12 02:12 | XMS RPT_ITS | CCD ---
Author Organization [facility] Care Team Providers Care Cardiologist Name Role Phone Burt Ramos MD Primary Care Provider PROVIDER, UNKNOWN Referring Unavailable BURT RAOMS Primary Care Unavailable Care Physician, No Primary Referring Unava iljo Care Physician, No Primary Primary Care Unava ilEvans Butt Attending Unavailable Burt Ramos Primary Care Unavailable David Saunders Attending Unavailable Burt Ramos MD Primary Care Provider Tannhof REGULATORY CONSULTANT.Bev GOTTLIEB Unavailable Keith REGULATORY CONSULTANT.Sammy GOTTLIEB Unavailable [phone] ZOEY BOTELLO Attending Unavailabl e BERRY PARKERE Referring Unavailable BURT RAMOS Primary Care Unavailable KEITH SAMMY Referring Unavailable BURT RAMOS Primary Care Unavailable RASHIDA TANG Referring Unavailable BURT RAMOS Primary Care Unavailable BELKYS BARRY Referring Unavailable BURT RAMOS Primary Care Unavailable KEITH SAMMY Referring Unavailable BURT RAMOS Primary Care Unavailable RASHIDA TANG Attending Unavailable BURT RAMOS Primary Care Unavailable Allergies Allergy Classification Reported Allergen(s) Allergy Type Date of Onset Reaction(s) Facility (18 sources) peanut allergenic extract; Translations: [PEANUT] Drug Allergy 03-08-2021 Itching [facility] (1 source) nut - unspecified Drug allergy (disorder) 08-16-[address] [facility] Repository Medications Current Medications Medication Drug Class(es) Dates Sig (Normalized) Sig (Original) 24 hr buPROPion hydrochloride 150 mg extended release oral tablet (1 source) Aminoketone Start: 03-28-2025 take 1 tablet by mouth once daily buPROPion XL (WELLBUTRIN XL) 150 mg 24 hr tablet Take 1 tablet by mouth once daily. 30 tablet 3 03/28/2025 Active omeprazole 20 mg delayed release oral capsule (1 source) Proton Pump Inhibitor Start: 08-17-2023 take 20 mg by mouth once daily Omeprazole Active 20 MG PO DAILY August 17, 2023 12:00am sertraline 100 mg oral tablet (19 sources) Serotonin Reuptake Inhibitor Start: 11-18-2021 End: 08-25-2024 take 1 tablet by mouth once daily sertraline (ZOLOFT) 100 mg tablet Take 1 tablet by mouth once daily. 90 tablet 3 08/26/2024 Active Comment on above: TAKE 1 TABLET BY KAMILLE TH EVERY DAY Take 1 tablet by kamille th once daily. Completed/Discontinued Medications Medication Drug Class(es) Dates Sig (Normalized) Sig (Original) mupirocin 0.02 mg/mg topical ointment (2 sources) RNA Synthetase Inhibitor Antibacterial Start: 10-11-2021 End: 12-21-2021 mupirocin (BACTROBAN) 2 % ointment Apply to affected area three times daily. Use in nose as needed 15 g 2 10/11/2021 12/21/2021 Discontinued (Course of therapy completed) Comment on above: Apply to affected ar ea three times daily. Use in nose as needed ondansetron 4 mg disintegrating oral tablet (4 sources) Serotonin-3 Receptor Antagonist Start: 12-13-2016 End: 08-16-2023 take 4 mg by mouth every eight hours as needed Ondansetron Discontinued 4 MG PO EVERY 8 HOURS NEEDED April 04, 2021 11:00pm August 16, 2023 11:43pm Comment on above: Take 1 tablet by kamille th every 8 hours as needed for nausea/vomiting. Problems Active Problems Problem Classification Problem Date Documented Date Episodic/Chronic Abdominal pain (1 source) Abdominal pain; Translations: [Unspecified abdominal pain] 04-05-2021 Episodic Disorders of lipid metabolism (12 sources) Hyperlipidemia; Translations: [Hyperlipidemia, unspecified] Onset: 03-18-2024 03-18-2024 Chronic Immunizations and screening for infectious disease (4 sources) Patient encounter status; Translations: [Encounter for immunization] 03-15-2024 Episodic Malaise and fatigue (2 sources) Fatigue; Translations: [Other fatigue] Onset: 05-05-2025 03-15-2024 Episodic Mood disorders (1 source) Major depressive disorder, single episode, mild; Translations: [Current mild episode of major depressive disorder without prior episode] Onset: 03-28-2025 Chronic Osteoarthritis (1 source) Unilateral primary osteoarthritis, right knee; Translations: [Osteoarthritis of right knee, unspecified osteoarthritis type] Onset: 03-28-2025 Chronic Other connective tissue disease (1 source) Synovial cyst of left popliteal space; Translations: [Synovial cyst of popliteal space [Mckeon], left knee] Episodic Other endocrine disorders (9 sources) Male hypogonadism; Translations: [Testicular hypofunction] Onset: 04-01-2024 04-01-2024 Chronic Other endocrine disorders (1 source) Testicular hypofunction; Translations: [Hypogonadism in male] Onset: 04-01-2024 Chronic Other nutritional; endocrine; and metabolic disorders (1 source) Severe obesity; Translations: [Morbid (severe) obesity due to excess calories] 03-15-2024 Chronic Other nutritional; endocrine; and metabolic disorders (1 source) Body mass index (BMI) 45.0-49.9, adult; Translations: [Class 3 severe obesity with body mass index (BMI) of 45.0 to 49.9 in adult, unspecified obesity type, unspecified whether serious comorbidity present (HCC)] Onset: 03-28-2025 Chronic Other screening for suspected conditions (not mental disorders or infectious disease) (1 source) Other specified abnormal findings of blood chemistry; Translations: [Low testosterone] Onset: 03-28-2025 Episodic Otitis media and related conditions (1 source) Dysfunction of bilateral eustachian tubes; Translations: [Other specified disorders of Eustachian tube, bilateral] Episodic Residual codes; unclassified (1 source) Pain, unspecified; Translations: [Pain] Onset: 01-26-2023 Episodic Residual codes; unclassified (1 source) Pain; Translations: [Pain, unspecified] 01-26-2023 Episodic Unclassified (1 source) Class 3 severe obesity with body mass index (BMI) of 45.0 to 49.9 in adult, unspecified obesity type, unspecified whether serious comorbidity present (HCC); Translations: [Class 3 severe obesity with body mass index (BMI) of 45.0 to 49.9 in adult, unspecified obesity type, unspecified whether serious comorbidity present (HCC)] Onset: 03-28-2025 Past or Other Problems Problem Classification Problem Date Documented Da te Episodic/Chronic Diabetes mellitus without complication (2 sources) Increased glucose level; Translations: [Other abnormal glucose] Onset: 09-26-2024 03-18-2024 Episodic Results Test Name Value Interpretation Reference Range Facility [facility] SerPl-aCncon 04-17-2025 Follitropin Qn 2.5 m[IU]/mL Normal 1.5-12.4 [facility] Comment on above: Order Comment: Speci men Type: BLOOD SPECIMEN Ordering Facility: [facility] Address: [address] [place] [address] Performed By: #### 2 4323-8, 83011-8, 2986-8, 3016-3 #### [facility] CLIA [id number] [address] [place] [address] [place] Hematocrit Auto (Bld) [Volum e fraction]on 04-17-2025 Hematocrit (Bld) [Volume fraction] 44.8 % 39.0 - 51.0 % [facility] Interpretation and review of laboratory results Normal [facility] Hematocrit (Bld) [Volume fraction] 44.8 % Normal 39.0-51.0 [facility] Comment on above: Order Comment: Speci men Type: BLOOD SPECIMEN Ordering Facility: [facility] Address: [address] [place] [address] Performed By: #### 4 544-3 #### [facility] CLIA [id number] [address] [place] [address] [place] LH SerPl-aCncon 04-17-2025 Lutropin Qn 4.0 m[IU]/mL Normal 1.8-10.8 [facility] Comment on above: Order Comment: Speci men Type: BLOOD SPECIMEN Ordering Facility: [facility] Address: [address] [place] [address] Performed By: #### 2 4323-8, 27848-0, 2986-8, 3016-3 #### [facility] CLIA [id number] [address] [place] [address] [place] PSA SerPl-mCncon 04-17-2025 Prostate specific Ag [Mass/Vol] 0.54 ng/mL Normal <2.60 [facility] Comment on above: Order Comment: Speci men Type: BLOOD SPECIMEN Ordering Facility: [facility] Address: [address] [place] [address] Result Comment: Tota l PSA test methodology used is the Electrochemiluminescence Immunoassay by [employer]. Total PSA values by differing methodologies cannot be interchanged. Performed By: #### 2 857-1 #### [facility] CLIA [id number] [address] [place] [address] [place] Prolactin SerPl-mCncon 04-17 Prolactin [Mass/Vol] 21.6 ng/mL Normal 4.1-25.1 [facility] Comment on above: Order Comment: Speci men Type: BLOOD SPECIMEN Ordering Facility: [facility] Address: [address] [place] [address] Result Comment: Prol actin test is performed using the [employer] Electrochemiluminescence Immunoassay method. Results obtained with different methods or kits cannot be used interchangeably. Performed By: #### 2 4323-8, 77869-7, 2986-8, 3016-3 #### [facility] CLIA [id number] [address] [place] [address] [place] Testost SerPl-mCncon 025 Testosterone [Mass/Vol] 205 ng/dL Normal 193-824 [facility] Comment on above: Order Comment: Speci men Type: BLOOD SPECIMEN Ordering Facility: [facility] Address: [address] [place] [address] Result Comment: A te stosterone level in the 193-320 ng/dL range with associated clinical symptoms is considered low and may indicate hypogonadism (from [facility] [phone]). Results >320 ng/dL are considered normal. Performed By: #### 2 4323-8, 10957-7, 2986-8, 3016-3 #### [facility] CLIA [id number] [address] [place] [address] OF [facility] 04-16-2025 CNPN Telephone (UROLST) JERRYELISEO ([id number]) 1985 M Date Time Provider Department 04/16/25 BELKYS BARRY During your visit today, we recorded the following information about you: Rashida Tang APRN.VETERINARY INSPECTOR 04/16/2025 3:45 PM Signed He has lost 14# over the last year. Allergies As of Date: 04/16/2025 Noted Allergy Reaction PEANUT 03/08/2021 9 - Itching Date Reviewed: 03/28/2025 Reviewed by: Kavon Pteerson LPN - Fully Assessed Primary Visit Diagnosis:Hypogonadism in male [E29.1] Order(s):FOLLICLE STIMULATING HORMONE [SQFSH] Order #: [id number] FUTURE HEMATOCRIT [SQHCT] Order #: [id number] FUTURE LUTEINIZING HORMONE [SQLH] Order #: [id number] FUTURE PROLACTIN [SQPROL] Order #: [id number] FUTURE PROSTATE-SPECIFIC ANTIGEN DIAGNOSTIC [SQPSA] Order #: [id number] FUTURE TESTOSTERONE, TOTAL BY IMMUNOASSAY (ADULT MALES, OR INDIVIDUALS ON TESTOSTERONE THERAPY) [SQTESTO] Order #: [id number] FUTURE Prescriptions as of 04/17/2025 - buPROPion XL (WELLBUTRIN XL) 150 mg 24 hr tablet Take 1 tablet by mouth once daily. - sertraline (ZOLOFT) 100 mg tablet Take 1 tablet by mouth once daily. Problem List As Of Date 04/16/2025 Noted Resolved Hyperlipidemia [E78.5] 03/18/2024 Hypogonadism in male [E29.1] 04/01/2024 Encounter Status:Closed by SCOTT RUIZ on 04/17/25 Normal [facility] CBC W Auto Differential pane l (Bld)on 03-28-2025 Basophils (Bld) [#/Vol] 0.05 10*3/uL Normal <0.11 [facility] Comment on above: Order Comment: Speci men Type: BLOOD SPECIMEN Ordering Facility: [facility] Address: [address] [place] [address] Performed By: #### 2 4323-8, 39105-1, 2986-8, 3016-3 #### [facility] CLIA [id number] [address] [place] [address] [place] Basophils/100 WBC (Bld) 0.6 % Normal [facility] Comment on above: Order Comment: Speci men Type: BLOOD SPECIMEN Ordering Facility: [facility] Address: [address] [place] [address] Performed By: #### 2 4323-8, 08032-7, 2986-8, 3016-3 #### [facility] CLIA [id number] [address] [place] [address] [place] Differential cell count method Nom (Bld) Auto Normal [facility] Comment on above: Order Comment: Speci men Type: BLOOD SPECIMEN Ordering Facility: [facility] Address: [address] [place] [address] Performed By: #### 2 4323-8, 59781-7, 2986-8, 3016-3 #### [facility] CLIA [id number] [address] [place] [address] [place] Eosinophils (Bld) [#/Vol] 1.62 10*3/uL High <0.46 [facility] Comment on above: Order Comment: Speci men Type: BLOOD SPECIMEN Ordering Facility: [facility] Address: [address] [place] [address] Performed By: #### 2 4323-8, 08954-3, 2986-8, 3016-3 #### [facility] CLIA [id number] [address] [place] [address] [place] Eosinophils/100 WBC (Bld) 20.3 % Normal [facility] Comment on above: Order Comment: Speci men Type: BLOOD SPECIMEN Ordering Facility: [facility] Address: [address] [place] [address] Performed By: #### 2 4323-8, 25169-5, 2985-8, 3016-3 #### [facility] CLIA [id number] [address] [place] [address] [place] Erythrocyte distribution width (RBC) [Ratio] 12.6 % Normal 11.5-15.0 [facility] Comment on above: Order Comment: Speci men Type: BLOOD SPECIMEN Ordering Facility: [facility] Address: [address] [place] [address] Performed By: #### 2 4323-8, 77981-5, 298-8, 3016-3 #### [facility] CLIA [id number] [address] [place], [place] [address] [place] Hematocrit (Bld) [Volume fraction] 44.5 % Normal 39.0-51.0 [facility] Comment on above: Order Comment: Speci men Type: BLOOD SPECIMEN Ordering Facility: [facility] Address: [address] [place] [address] Performed By: #### 2 4323-8, 52885-4, 298-8, 3016-3 #### [facility] CLIA [id number] [address] [place] [address] [place] Hemoglobin (Bld) [Mass/Vol] 15.6 g/dL Normal 13.0-17.0 [facility] Comment on above: Order Comment: Speci men Type: BLOOD SPECIMEN Ordering Facility: [facility] Address: [address] [place], [place] [address] Performed By: #### 2 4323-8, 26393-4, 2986-8, 3016-3 #### [facility] CLIA [id number] [address] [place], [place] [address] [place] Immature granulocytes (Bld) [#/Vol] 10*3/uL Normal <0.10 [facility] Comment on above: Order Comment: Speci men Type: BLOOD SPECIMEN Ordering Facility: [facility] Address: [address] [place] [address] Performed By: #### 2 4323-8, 67809-0, 2986-8, 3016-3 #### [facility] CLIA [id number] [address] [place] [address] [place] Immature granulocytes/100 WBC (Bld) 0.3 % Normal [facility] Comment on above: Order Comment: Speci men Type: BLOOD SPECIMEN Ordering Facility: [facility] Address: [address] [place] [address] Performed By: #### 2 4323-8, 08712-6, 2986-8, 3016-3 #### [facility] CLIA [id number] [address] [place] [address] [place] Lymphocytes (Bld) [#/Vol] 2.42 10*3/uL Normal 1.00-4.00 [facility] Comment on above: Order Comment: Speci men Type: BLOOD SPECIMEN Ordering Facility: [facility] Address: [address] [place] [address] Performed By: #### 2 4323-8, 97649-1, 2986-8, 3016-3 #### [facility] CLIA [id number] [address] [place], [place] [address] [place] Lymphocytes/100 WBC (Bld) 30.3 % Normal [facility] Comment on above: Order Comment: Speci men Type: BLOOD SPECIMEN Ordering Facility: [facility] Address: [address] [place], [place] [address] Performed By: #### 2 4323-8, 12435-9, 2986-8, 3016-3 #### [facility] CLIA [id number] [address] [place] [address] [place] MCH (RBC) [Entitic mass] 28.6 pg Normal 26.0-34.0 [facility] Comment on above: Order Comment: Speci men Type: BLOOD SPECIMEN Ordering Facility: [facility] Address: [address] [place] [address] Performed By: #### 2 4323-8, 39275-8, 2986-8, 3016-3 #### [facility] CLIA [id number] [address] [place] [address] [place] MCHC (RBC) [Mass/Vol] 35.1 g/dL Normal 30.5-36.0 [facility] Comment on above: Order Comment: Speci men Type: BLOOD SPECIMEN Ordering Facility: [facility] Address: [address] [place] [address] Performed By: #### 2 4323-8, 50674-0, 2986-8, 3016-3 #### [facility] CLIA [id number] [address] [place] [address] [place] MCV (RBC) [Entitic vol] 81.5 fL Normal 80.0-100.0 [facility] Comment on above: Order Comment: Speci men Type: BLOOD SPECIMEN Ordering Facility: [facility] Address: [address] [place] [address] Performed By: #### 2 4323-8, 42335-5, 2986-8, 3016-3 #### [facility] CLIA [id number] [address] [place] [address] [place] Monocytes (Bld) [#/Vol] 0.39 10*3/uL Normal <0.87 [facility] Comment on above: Order Comment: Speci men Type: BLOOD SPECIMEN Ordering Facility: [facility] Address: [address] [place] [address] Performed By: #### 2 4323-8, 24558-9, 2986-8, 3016-3 #### [facility] CLIA [id number] [address] [place] [address] [place] Monocytes/100 WBC (Bld) 4.9 % Normal [facility] Comment on above: Order Comment: Speci men Type: BLOOD SPECIMEN Ordering Facility: [facility] Address: [address] [place] [address] Performed By: #### 2 4323-8, 38289-3, 2986-8, 3016-3 #### [facility] CLIA [id number] [address] [place] [address] [place] Neutrophils (Bld) [#/Vol] 3.49 10*3/uL Normal 1.45-7.50 [facility] Comment on above: Order Comment: Speci men Type: BLOOD SPECIMEN Ordering Facility: [facility] Address: [address] [place] [address] Performed By: #### 2 4323-8, 40971-2, 2986-8, 3016-3 #### [facility] CLIA [id number] [address] [place] [address] [place] Neutrophils/100 WBC (Bld) 43.6 % Normal [facility] Comment on above: Order Comment: Speci men Type: BLOOD SPECIMEN Ordering Facility: [facility] Address: [address] [place] [address] Performed By: #### 2 4323-8, 73689-0, 2986-8, 3016-3 #### [facility] CLIA [id number] [address] [place] [address] [place] Nucleated RBC (Bld) [#/Vol] 10*3/uL Normal <0.01 [facility] Comment on above: Order Comment: Speci men Type: BLOOD SPECIMEN Ordering Facility: [facility] Address: [address] [place] [address] Performed By: #### 2 4323-8, 19225-9, 2986-8, 3016-3 #### [facility] CLIA [id number] [address] [place] [address] [place] Nucleated RBC/100 WBC (Bld) [Ratio] 0.0 /100 WBC Normal [facility] Comment on above: Order Comment: Speci men Type: BLOOD SPECIMEN Ordering Facility: [facility] Address: [address] [place] [address] Performed By: #### 2 4323-8, 47393-0, 2986-8, 3016-3 #### [facility] CLIA [id number] [address] [place] [address] [place] Platelet mean volume (Bld) [Entitic vol] 9.4 fL Normal 9.0-12.7 [facility] Comment on above: Order Comment: Speci men Type: BLOOD SPECIMEN Ordering Facility: [facility] Address: [address] [place] [address] Performed By: #### 2 4323-8, 28954-9, 2986-8, 3016-3 #### [facility] CLIA [id number] [address] [place] [address] [place] Platelets (Bld) [#/Vol] 274 10*3/uL Normal 150-400 [facility] Comment on above: Order Comment: Speci men Type: BLOOD SPECIMEN Ordering Facility: [facility] Address: [address] [place] [address] Performed By: #### 2 4323-8, 69455-3, 2986-8, 3016-3 #### [facility] CLIA [id number] [address] [place] [address] [place] RBC (Bld) [#/Vol] 5.46 10*6/uL Normal 4.20-6.00 [facility] Comment on above: Order Comment: Speci men Type: BLOOD SPECIMEN Ordering Facility: [facility] Address: [address] [place], [place] [address] Performed By: #### 2 4323-8, 00045-4, 2986-8, 3016-3 #### [facility] CLIA [id number] [address] [place], [place] [address] [place] WBC (Bld) [#/Vol] 7.99 10*3/uL Normal 3.70-11.00 [facility] Comment on above: Order Comment: Speci men Type: BLOOD SPECIMEN Ordering Facility: [facility] Address: [address] [place], [place] [address] Performed By: #### 2 4323-8, 31154-6, 2986-8, 3016-3 #### [facility] CLIA [id number] [address] [place], [place] [address] [facility] [place] CNOVon 03-28-2025 CNOV [facility] Visit [facility] ELISEO ALVAREZ ([id number]) 1985 M Date Time Provider Department 03/28/25 7:40 AM RASHIDA TANG [facility] During your visit today, we recorded the following information about you: Pulse Respiration Blood pressure Weight 72/minute 16/minute 128/96 137.4 kg Rashida Tang, TISH.VETERINARY INSPECTOR 03/28/2025 8:18 AM Signed - Stop your low-dose aspirin regimen as discussed. - Continue sertraline (Zoloft) 100 mg at bedtime; your current supply lasts until August. - Begin bupropion (Wellbutrin XL) once daily in the morning; prescription has been sent to [facility]. - Have fasting blood drawn this morning. - Complete a home sleep study for sleep apnea; our scheduling team will contact you by phone or via MyChart with equipment and instructions. - Expect lab results by Monday or Monday; we will notify you once they are available. - Schedule a follow-up visit in one month to assess how the bupropion is working. If you experience any concerns before then, please contact the office. Health Promotion: - Eat healthy -- go to [employer] to get started - Have a yearly physical - Get at least 30 minutes of physical activity daily - Get at least 7 to 8 hours of sleep each night - Reach and maintain a healthy weight - Get help to quit or don't start smoking - Limit alcohol use to one drink or less - Do not use illegal drugs or misuse prescription drugs - Wear a helmet when riding a bike and wear protective gear for sports - Wear a seatbelt in cars and not text and drive - Wear sunscreen Rashida Tang APRN.VETERINARY INSPECTOR 03/28/2025 11:29 AM Signed This is a 39 year old male who presents today with: Cesar Dante Alvarez is a 39-year-old male with a history of depression, anxiety, and low testosterone, presenting for an annual wellness visit, with additional concerns about hyperlipidemia, low testosterone, and right knee pain. HISTORY OF PRESENT ILLNESS: Hyperlipidemia: - Family history of CAD; father recently underwent quintuple bypass surgery. - Previous discussions about starting a statin if diet and exercise were insufficient. - Currently on an aspirin regimen. Depression and Anxiety: - Taking sertraline 100 mg QHS x4 years. - Feels medication is less effective recently, with more depression and feeling very flat. - No suicidal or homicidal ideations. Low Testosterone: - Diagnosed with low testosterone; last seen by barman in April or May. - Advised to focus on weight loss and exercise; has been inconsistent but improved. - No follow-up scheduled with barman. - Attributes some weight gain and fatigue to low testosterone. - No current testosterone supplements. Right Knee Pain: - Right knee pain and weakness x1 year. - Pain when getting up from the floor; avoids using right leg due to pain. - Family history of osteoarthritis. - History of Mckeon's cyst in right knee, possibly related to overuse. - Pain managed with rest; avoids squats and uses machines at the gym to strengthen surrounding muscles. - No current medication for knee pain. PAST MEDICAL HISTORY: PAST MEDICAL HISTORY Diagnosis Date Childhood asthma without complication (HCC) grew out of it PAST SURGICAL HISTORY Procedure Laterality Date NONE ALLERGIES Peanut MEDICATIONS Current Outpatient Medications Medication Sig buPROPion XL (WELLBUTRIN XL) 150 mg 24 hr tablet Take 1 tablet by mouth once daily. sertraline (ZOLOFT) 100 mg tablet Take 1 tablet by mouth once daily. No current facility-administered medications for this visit. FAMILY HISTORY Problem Relation Age of Onset Hypothyroidism Mother Depression Father Ischemic Heart Disease Father cabg X5 Psoriasis Brother Alzheimer's Disease Maternal Grandmother Pancreatic Cancer Maternal Grandfather Lung Cancer Paternal Grandfather Social History Tobacco Use Smoking status: Never Smokeless tobacco: Never Vaping Use Vaping status: Never Used Substance Use Topics Alcohol use: Yes Comment: 3-4 beers per week Drug use: Not Currently REVIEW OF SYSTEMS Constitutional: (+) fatigue, (+) weight gain, (-) unintentional weight loss, (-) weakness, (-) appetite change Head: (-) headaches Eyes: (-) vision changes Ears/Nose/Mouth/Throat: (-) hearing changes, (-) dysphagia Neck: (-) neck masses Cardiovascular: (-) chest pain, (-) palpitations, (-) peripheral edema Respiratory: (+) intermittent snoring, (-) dyspnea, (-) witnessed apneic episodes Gastrointestinal: (+) heartburn, (-) diarrhea, (-) constipation, (-) hematochezia, (-) melena Genitourinary: (-) dysuria, (-) libido change Musculoskeletal: (+) right knee pain, (+) right leg weakness Skin: (-) rash, (-) pruritus, (-) changing moles Neurological: (-) syncope, (-) seizures, (-) tremors Psychiatric: (+) depressed mood, (-) suicidal ideation, (-) ho (more content not included)... Normal [facility] Comprehensive metabolic 2000 panelon 03-28-2025 Albumin [Mass/Vol] 4.3 g/dL Normal 3.9-4.9 [facility] Comment on above: Order Comment: Speci men Type: BLOOD SPECIMEN Ordering Facility: [facility] Address: [address] [place] [address] Performed By: #### 2 4323-8, 61579-1, 2986-8, 3016-3 #### [facility] CLIA [id number] [address] [place], [place] [address] [place] ALP [Catalytic activity/Vol] 96 U/L Normal 38-113 [facility] Comment on above: Order Comment: Speci men Type: BLOOD SPECIMEN Ordering Facility: [facility] Address: [address] [place] [address] Performed By: #### 2 4323-8, 84924-9, 2985-8, 3016-3 #### [facility] CLIA [id number] [address] [place], [place] [address] [place] ALT [Catalytic activity/Vol] 17 U/L Normal 10-54 [facility] Comment on above: Order Comment: Speci men Type: BLOOD SPECIMEN Ordering Facility: [facility] Address: [address] [place] [address] Performed By: #### 2 4323-8, 23435-6, 2985-8, 3016-3 #### [facility] CLIA [id number] [address] [place], [place] [address] [place] Anion gap [Moles/Vol] 13 mmol/L Normal 8-15 [facility] Comment on above: Order Comment: Speci men Type: BLOOD SPECIMEN Ordering Facility: [facility] Address: [address] [place] [address] Performed By: #### 2 4323-8, 00895-9, 298-8, 3016-3 #### [facility] CLIA [id number] [address] [place] [address] [place] AST [Catalytic activity/Vol] 14 U/L Normal 14-40 [facility] Comment on above: Order Comment: Speci men Type: BLOOD SPECIMEN Ordering Facility: [facility] Address: [address] [place], [place] [address] Performed By: #### 2 4323-8, 77711-1, 2986-8, 3016-3 #### [facility] CLIA [id number] [address] [place] [address] [place] Bilirubin [Mass/Vol] 0.3 mg/dL Normal 0.2-1.3 [facility] Comment on above: Order Comment: Speci men Type: BLOOD SPECIMEN Ordering Facility: [facility] Address: [address] [place] [address] Performed By: #### 2 4323-8, 80761-3, 298-8, 3016-3 #### [facility] CLIA [id number] [address] [place], [place] [address] [place] Calcium [Mass/Vol] 9.4 mg/dL Normal 8.5-10.2 [facility] Comment on above: Order Comment: Speci men Type: BLOOD SPECIMEN Ordering Facility: [facility] Address: [address] [place] [address] Performed By: #### 2 4323-8, 26848-1, 298-8, 3016-3 #### [facility] CLIA [id number] [address] [place] [address] [place] Chloride [Moles/Vol] 103 mmol/L Normal 98-107 [facility] Comment on above: Order Comment: Speci men Type: BLOOD SPECIMEN Ordering Facility: [facility] Address: [address] [place] [address] Performed By: #### 2 4323-8, 20557-4, 298-8, 3016-3 #### [facility] CLIA [id number] [address] [place], [place] [address] [place] CO2 [Moles/Vol] 23 mmol/L Normal 22-30 [facility] Comment on above: Order Comment: Speci men Type: BLOOD SPECIMEN Ordering Facility: [facility] Address: [address] [place] [address] Performed By: #### 2 4323-8, 12827-6, 2986-8, 3016-3 #### [facility] CLIA [id number] [address] [place], [place] [address] [place] Creatinine [Mass/Vol] 1.17 mg/dL Normal 0.73-1.22 [facility] Comment on above: Order Comment: Roland geller Type: BLOOD SPECIMEN Ordering Facility: [facility] Address: [address] [place] [address] Performed By: #### 2 4323-8, 14801-9, 2986-8, 3016-3 #### [facility] CLIA [id number] [address] [place] [address] [place] eGFRcr SerPlBld CKD-EPI 2020 81 mL/min/1.73m??? Normal >=60 [facility] Comment on above: Order Comment: Roland geller Type: BLOOD SPECIMEN Ordering Facility: [facility] Address: [address] [place] [address] Result Comment: Cookie mated Glomerular Filtration Rate (eGFR) is calculated using the 2020 CKD-EPI creatinine equation. This equation utilizes serum creatinine, sex, and age as parameters. The creatinine assay has traceable calibration to isotope dilution-mass spectrometry. Refer to KDIGO guidelines for clinical interpretation. In patients with unstable renal function, e.g. those with acute kidney injury, the eGFR may not accurately reflect actual GFR. Performed By: #### 2 4323-8, 69246-4, 2986-8, 3016-3 #### [facility] CLIA [id number] [address] [place], [place] [address] [place] Glucose [Mass/Vol] 95 mg/dL Normal 74-99 [facility] Comment on above: Order Comment: Roland geller Type: BLOOD SPECIMEN Ordering Facility: [facility] Address: [address] [place] [address] Result Comment: The [place] Diabetes Association (ADA) provides guidance for cutoff values for fasting glucose and random glucose. The ADA defines fasting as no caloric intake for at least 8 hours. Fasting plasma glucose results between 100 to 125 mg/dL indicate increased risk for diabetes (prediabetes). Fasting plasma glucose results greater than or equal to 126 mg/dL meet the criteria for diagnosis of diabetes. In the absence of unequivocal hyperglycemia, results should be confirmed by repeat testing. In a patient with classic symptoms of hyperglycemia or hyperglycemic crisis, random plasma glucose results greater than or equal to 200 mg/dL meet the criteria for diagnosis of diabetes. Reference: Standards of Medical Care in Diabetes 2016, [place] Diabetes Association. Diabetes Care. 2016.39(Suppl 1). Performed By: #### 2 4323-8, 39725-4, 2986-8, 3016-3 #### [facility] CLIA [id number] [address] [place] [address] [place] Potassium [Moles/Vol] 4.2 mmol/L Normal 3.7-5.1 [facility] Comment on above: Order Comment: Roland geller Type: BLOOD SPECIMEN Ordering Facility: [facility] Address: [address] [place] [address] Performed By: #### 2 4323-8, 52667-8, 298-8, 3016-3 #### [facility] CLIA [id number] [address] [place] [address] [place] Protein [Mass/Vol] 7.3 g/dL Normal 6.3-8.0 [facility] Comment on above: Order Comment: Roland geller Type: BLOOD SPECIMEN Ordering Facility: [facility] Address: [address] [place] [address] Performed By: #### 2 4323-8, 71583-7, 298-8, 3016-3 #### [facility] CLIA [id number] [address] [place], [place] [address] [place] Sodium [Moles/Vol] 139 mmol/L Normal 136-144 [facility] Comment on above: Order Comment: Leydai men Type: BLOOD SPECIMEN Ordering Facility: [facility] Address: [address] [place] [address] Performed By: #### 2 4323-8, 60766-9, 2986-8, 3016-3 #### [facility] CLIA [id number] [address] [place] Urea nitrogen [Mass/Vol] 13 mg/dL Normal 9-24 [facility] Comment on above: Order Comment: Speci men Type: BLOOD SPECIMEN Ordering Facility: [facility] Address: [address] [place] [address] Performed By: #### 2 4323-8, 15116-6, 2986-8, 3016-3 #### [facility] CLIA [id number] [address] [place], [place] [address] [place] Lipid 1996 panelon 5 Cholesterol [Mass/Vol] 251 mg/dL High <200 [facility] Comment on above: Order Comment: Speci men Type: BLOOD SPECIMEN Ordering Facility: [facility] Address: [address] [place] [address] Result Comment: <200 mg/dL, Desirable 200-239 mg/dL, Borderline high >239 mg/dL, High Performed By: #### 2 4323-8, 93932-5, 2986-8, 3016-3 #### [facility] CLIA [id number] [address] [place], [place] [address] [place] Cholesterol in HDL [Mass/Vol] 41 mg/dL Normal >39 [facility] Comment on above: Order Comment: Speci men Type: BLOOD SPECIMEN Ordering Facility: [facility] Address: [address] [place], [place] [address] Result Comment: 40-5 9 mg/dL, Acceptable >59 mg/dL, High: Negative risk factor for coronary heart disease <40 mg/dL, Low: Positive risk factor for coronary heart disease Performed By: #### 2 4323-8, 26258-5, 2986-8, 3016-3 #### [facility] CLIA [id number] [address] [place] [address] [place] Cholesterol in LDL [Mass/Vol] 176 mg/dL High <100 [facility] Comment on above: Order Comment: Roland geller Type: BLOOD SPECIMEN Ordering Facility: [facility] Address: [address] [place] [address] Result Comment: <100 mg/dL, Optimal 100-129 mg/dL, Near optimal/above optimal 130-159 mg/dL, Borderline high 160-189 mg/dL, High >189 mg/dL, Very high Secondary prevention optimal LDL Cholesterol levels are recommended to be <70 mg/dL LDL cholesterol is calculated using the Lemus-NIH equation. Performed By: #### 2 4323-8, 72818-6, 2986-8, 3016-3 #### [facility] CLIA [id number] [address] [place] [address] [place] Cholesterol in LDL/Cholesterol in HDL [Mass ratio] 4.29 {ratio} High <2.54 [facility] Comment on above: Order Comment: Roland geller Type: BLOOD SPECIMEN Ordering Facility: [facility] Address: [address] [place] [address] Result Comment: Refe rence: 1. National Cholesterol Education Program ATP III Guideline At-A-Glance Quick Desk Reference: National Heart, Lung, and Blood [place]. National Institutes of Health. 2001: NIH Publication No. 01-3305. 2. An International Atherosclerosis Society position paper: global recommendations for the management of dyslipidemia: executive summary, Atherosclerosis. 2014: 232(2):410-413. Performed By: #### 2 4323-8, 87796-9, 2986-8, 3016-3 #### [facility] CLIA [id number] [address] [place], [place] [address] [place] Cholesterol in VLDL [Mass/Vol] 36 mg/dL High <30 [facility] Comment on above: Order Comment: Roland geller Type: BLOOD SPECIMEN Ordering Facility: [facility] Address: [address] [place] [address] Performed By: #### 2 4323-8, 98210-5, 2986-8, 3016-3 #### [facility] CLIA [id number] [address] [place] [address] [place] Cholesterol non HDL [Mass/Vol] 210 mg/dL High <130 [facility] Comment on above: Order Comment: Speci men Type: BLOOD SPECIMEN Ordering Facility: [facility] Address: [address] [place] [address] Result Comment: <130 mg/dL, Optimal 130-159 mg/dL, Near optimal/above optimal 160-189 mg/dL, Borderline high 190-219 mg/dL, High >219 mg/dL, Very high Secondary prevention optimal non HDL Cholesterol levels are recommended to be <100 mg/dL Performed By: #### 2 4323-8, 15688-7, 2986-8, 3016-3 #### [facility] CLIA [id number] [address] [place] [address] [place] Cholesterol.total/Cho lesterol in HDL [Mass ratio] 6.12 {ratio} High <5.10 [facility] Comment on above: Order Comment: Speci men Type: BLOOD SPECIMEN Ordering Facility: [facility] Address: [address] [place] [address] Performed By: #### 2 4323-8, 94999-2, 2986-8, 3016-3 #### [facility] CLIA [id number] [address] [place] [address] [place] FASTING TIME 12 hrs Normal [facility] Comment on above: Order Comment: Speci men Type: BLOOD SPECIMEN Ordering Facility: [facility] Address: [address] [place] [address] Performed By: #### 2 4323-8, 07214-1, 2986-8, 3016-3 #### [facility] CLIA [id number] [address] [place] [address] [place] Triglyceride [Mass/Vol] 181 mg/dL High <150 [facility] Comment on above: Order Comment: Speci men Type: BLOOD SPECIMEN Ordering Facility: [facility] Address: [address], [place] [address] Result Comment: <150 mg/dL, Normal 150-199 mg/dL, Borderline high 200-499 mg/dL, High >499 mg/dL, Very high Performed By: #### 2 4323-8, 22284-1, 2986-8, 3016-3 #### [facility] CLIA [id number] [address] [place], [place] [address] [place] TSH SerPl-aCncon 03-28-2025 TSH Qn 3.550 m[IU]/L Normal 0.270-4.200 [facility] Comment on above: Order Comment: Speci men Type: BLOOD SPECIMEN Ordering Facility: [facility] Address: [address] [place] [address] Performed By: #### 2 4323-8, 81816-2, 2988, 3016-3 #### [facility] CLIA [id number] [address] [place] [address] [place] Testost SerPl-mCncon 025 Testosterone [Mass/Vol] 197 ng/dL Normal 193-824 [facility] Comment on above: Order Comment: Speci men Type: BLOOD SPECIMEN Ordering Facility: [facility] Address: [address] [place] [address] Result Comment: A te stosterone level in the 193-320 ng/dL range with associated clinical symptoms is considered low and may indicate hypogonadism (from TXJ 2010 363:123-135). Results >320 ng/dL are considered normal. Performed By: #### 2 4323-8, 70298-1, 2986-8, 3016-3 #### [facility] CLIA [id number] [address] [place] [address] [place] HbA1c (Bld)on 09-26-2024 Average glucose Estimated from glycated hemoglobin (Bld) [Mass/Vol] 85 mg/dL Normal [facility] Comment on above: Order Comment: Speci men Type: BLOOD SPECIMEN Ordering Facility: [facility] Address: [address] [place] [address] Result Comment: eAG: (Estimated average glucose) is a calculated value from HgbA1c and is senior patient account representative of the average blood glucose level in the last 2-3 month period. Performed By: #### 5 5454-3 #### [facility] CLIA [id number] [address] [place], [place] [address] [place] [address] [place] HbA1c (Bld) [Mass fraction] 4.6 % Normal 4.3-5.6 [facility] Comment on above: Order Comment: Roland geller Type: BLOOD SPECIMEN Ordering Facility: [facility] Address: [address] [place] [address] Result Comment: Amer [place] Diabetes Association guidelines indicate that patients with HgbA1c in the range 5.7-6.4% are at increased risk for development of diabetes, and intervention by lifestyle modification may be beneficial. HgbA1c greater or equal to 6.5% is considered diagnostic of diabetes. Performed By: #### 5 5454-3 #### [facility] CLIA [id number] [address] [place] [address] [place] Lipid 1996 panelon 5 Cholesterol [Mass/Vol] 236 mg/dL High <200 [facility] Comment on above: Order Comment: Roland geller Type: BLOOD SPECIMEN Ordering Facility: [facility] Address: [address] [place] [address] Result Comment: <200 mg/dL, Desirable 200-239 mg/dL, Borderline high >239 mg/dL, High Performed By: #### 2 4323-8, 05760-6, 2986-8, 3016-3 #### [facility] CLIA [id number] [address] [place] [address] [place] Cholesterol in HDL [Mass/Vol] 44 mg/dL Normal >39 [facility] Comment on above: Order Comment: Roland geller Type: BLOOD SPECIMEN Ordering Facility: [facility] Address: [address] [place] [address] Result Comment: 40-5 9 mg/dL, Acceptable >59 mg/dL, High: Negative risk factor for coronary heart disease <40 mg/dL, Low: Positive risk factor for coronary heart disease Performed By: #### 2 4323-8, 93348-0, 2986-8, 3016-3 #### [facility] CLIA [id number] [address] [place] [address] [place] Cholesterol in LDL [Mass/Vol] 158 mg/dL High <100 [facility] Comment on above: Order Comment: Speci men Type: BLOOD SPECIMEN Ordering Facility: [facility] Address: [address] [place] [address] Result Comment: <100 mg/dL, Optimal 100-129 mg/dL, Near optimal/above optimal 130-159 mg/dL, Borderline high 160-189 mg/dL, High >189 mg/dL, Very high Secondary prevention optimal LDL Cholesterol levels are recommended to be < 70 mg/dL Performed By: #### 2 4323-8, 71249-5, 2986-8, 6-3 #### [facility] CLIA [id number] [address] [place] [address] [place] Cholesterol in LDL/Cholesterol in HDL [Mass ratio] 3.59 {ratio} High <2.54 [facility] Comment on above: Order Comment: Speci men Type: BLOOD SPECIMEN Ordering Facility: [facility] Address: [address] [place] [address] Result Comment: Refe rence: 1. National Cholesterol Education Program ATP III Guideline At-A-Glance Quick Desk Reference: National Heart, Lung, and Blood [place]. National Institutes of Health. 2001: NIH Publication No. 01-3305. 2. An International Atherosclerosis Society position paper: global recommendations for the management of dyslipidemia: executive summary, Atherosclerosis. 2014: 232(2):410-413. Performed By: #### 2 4323-8, 75482-4, 2986-8, 3016-3 #### [facility] CLIA [id number] [address] [place], [place] [address] [place] Cholesterol in VLDL [Mass/Vol] 34 mg/dL High <30 [facility] Comment on above: Order Comment: Speci men Type: BLOOD SPECIMEN Ordering Facility: [facility] Address: [address] [place] [address] Performed By: #### 2 4323-8, 29556-6, 2985-8, 3016-3 #### [facility] CLIA [id number] [address] [place], [place] [address] [place] Cholesterol non HDL [Mass/Vol] 192 mg/dL High <130 [facility] Comment on above: Order Comment: Speci men Type: BLOOD SPECIMEN Ordering Facility: [facility] Address: [address] [place] [address] Result Comment: <130 mg/dL, Optimal 130-159 mg/dL, Near optimal/above optimal 160-189 mg/dL, Borderline high 190-219 mg/dL, High >219 mg/dL, Very high Secondary prevention optimal non HDL Cholesterol levels are recommended to be <100 mg/dL Performed By: #### 2 4323-8, 59514-4, 2985-8, 6-3 #### [facility] CLIA [id number] [address] [place] [address] [place] Cholesterol.total/Cho lesterol in HDL [Mass ratio] 5.36 {ratio} High <5.10 [facility] Comment on above: Order Comment: Speci men Type: BLOOD SPECIMEN Ordering Facility: [facility] Address: [address] [place] [address] Performed By: #### 2 4323-8, 05560-8, 2985-8, 3016-3 #### [facility] CLIA [id number] [address] [place], [place] [address] [place] FASTING TIME 12 hrs Normal [facility] Comment on above: Order Comment: Speci men Type: BLOOD SPECIMEN Ordering Facility: [facility] Address: [address] [place], [place] [address] Performed By: #### 2 4323-8, 15372-5, 298-8, 3016-3 #### [facility] CLIA [id number] [address] [place] [address] [place] Triglyceride [Mass/Vol] 170 mg/dL High <150 [facility] Comment on above: Order Comment: Speci men Type: BLOOD SPECIMEN Ordering Facility: [facility] Address: [address] [place] [address] Result Comment: <150 mg/dL, Normal 150-199 mg/dL, Borderline high 200-499 mg/dL, High >499 mg/dL, Very high Performed By: #### 2 4323-8, 48191-4, 2986-8, 3016-3 #### [facility] CLIA [id number] [address] [place] [address] [place] Basic Metabolic Profile (BMP )on 08-17-2023 BUN/CRE 15.9 RATIO Normal 10-[address] [facility] Comment on above: Order Comment: 'TROP ' Serial specimen #1, #2 or #3: 1 Performed By: #### L 500.2500, L501.4020, L100.0100 #### [facility] [address] [place], [address] CA,Total 8.8 mg/dL Normal 8.5-10.[address] [facility] Comment on above: Order Comment: 'TROP ' Serial specimen #1, #2 or #3: 1 Performed By: #### L 500.2500, L501.4020, L100.0100 #### [facility] [address] [place], [address] Chloride [Moles/Vol] 105 mmol/L Normal 98-107 [facility] Comment on above: Order Comment: 'TROP ' Serial specimen #1, #2 or #3: 1 Performed By: #### L 500.2500, L501.4020, L100.0100 #### [facility] [address] [place], [address] CO2 [Moles/Vol] 26.0 mmol/L Normal 21.0-32.[address] [facility] Comment on above: Order Comment: 'TROP ' Serial specimen #1, #2 or #3: 1 Performed By: #### L 500.2500, L501.4020, L100.0100 #### [facility] [address] [place], [address] Creatinine [Mass/Vol] 1.07 mg/dL Normal 0.70-1.30 [facility] Comment on above: Order Comment: 'TROP ' Serial specimen #1, #2 or #3: 1 Result Comment: The validity of the calculated GFR GFRAA in patients over 70 years has not been determined. Clinical correlation is essential. Performed By: #### L 500.2500, L501.4020, L100.0100 #### [facility] [address] [place], [address] ECRCL 88.37 ml/min Normal [facility] Comment on above: Order Comment: 'TROP ' Serial specimen #1, #2 or #3: 1 Performed By: #### L 500.2500, L501.4020, L100.0100 #### [facility] [address] [place], [address] EST GFR - AA 100 mL/min Normal >[address] [facility] Comment on above: Order Comment: 'TROP ' Serial specimen #1, #2 or #3: 1 Result Comment: Afri can [place] GFR Calc Performed By: #### L 500.2500, L501.4020, L100.0100 #### [facility] [address] [place], [address] GAP 6 Normal 5-[address] [facility] Comment on above: Order Comment: 'TROP ' Serial specimen #1, #2 or #3: 1 Performed By: #### L 500.2500, L501.4020, L100.0100 #### [facility] [address] [place], [address] GFR/1.73 sq M.predicted among non-blacks MDRD (S/P/Bld) [Vol rate/Area] 82 mL/min/{1.73_m2} Normal >[address] [facility] Comment on above: Order Comment: 'TROP ' Serial specimen #1, #2 or #3: 1 Result Comment: Non- GFR Calc Performed By: #### L 500.2500, L501.4020, L100.0100 #### [facility] [address] [place], [address] Glucose [Mass/Vol] 145 mg/dL High 74-[address] [facility] Comment on above: Order Comment: 'TROP ' Serial specimen #1, #2 or #3: 1 Result Comment: Fast ing Glucose result greater than or equal to 126 mg/dL suggests DIABETES MELLITUS per A.D.A. criteria. Performed By: #### L 500.2500, L501.4020, L100.0100 #### [facility] [address] [place], [address] Potassium [Moles/Vol] 3.8 mmol/L Normal 3.5-5.1 [facility] Comment on above: Order Comment: 'TROP ' Serial specimen #1, #2 or #3: 1 Performed By: #### L 500.2500, L501.4020, L100.0100 #### [facility] [address] [place], [address] Sodium [Moles/Vol] 137 mmol/L Normal 136-[address] [facility] Comment on above: Order Comment: 'TROP ' Serial specimen #1, #2 or #3: 1 Performed By: #### L 500.2500, L501.4020, L100.0100 #### [facility] [address] [place], [address] Urea nitrogen [Mass/Vol] 17 mg/dL Normal 7-[address] [facility] Comment on above: Order Comment: 'TROP ' Serial specimen #1, #2 or #3: 1 Performed By: #### L 500.2500, L501.4020, L100.0100 #### [facility] [address] [place], [address] CBC W/Diff, Automatedon 12 Absolute Lymph 2.92 X10 3/uL Normal 0.83-4.[address] [facility] Comment on above: Performed By: #### L 500.2500, L501.4020, L100.0100 #### [facility] [address] [place], [address] Absolute Neut 4.5 X10 3/uL Normal 2.0-7.[address] [facility] Comment on above: Performed By: #### L 500.2500, L501.4020, L100.0100 #### [facility] [address] [place], [address] Basophils/100 WBC (Bld) 0.5 % Normal 0-[address] [facility] Comment on above: Performed By: #### L 500.2500, L501.4020, L100.0100 #### [facility] [address] [place], [address] Eosinophils/100 WBC (Bld) 4.4 % Normal 0-[address] [facility] Comment on above: Performed By: #### L 500.2500, L501.4020, L100.0100 #### [facility] [address] [place], [address] Erythrocyte distribution width (RBC) [Ratio] 13.0 % Normal 11.6-14.[address] [facility] Comment on above: Performed By: #### L 500.2500, L501.4020, L100.0100 #### [facility] [address] [place], [address] Hematocrit (Bld) [Volume fraction] 45.8 % Normal 40-[address] [facility] Comment on above: Performed By: #### L 500.2500, L501.4020, L100.0100 #### [facility] [address] [place], [address] Hemoglobin (Bld) [Mass/Vol] 15.7 g/dL Normal 13.0-16.[address] [facility] Comment on above: Performed By: #### L 500.2500, L501.4020, L100.0100 #### [facility] [address] [place], [address] IG% 0.800 Normal 0.0-0.[address] [facility] Comment on above: Result Comment: IG% - Immature Granulocytes (promyelocytes, myelocytes and metamyelocytes) > 1% indicates that a LEFT SHIFT is Present. Performed By: #### L 500.2500, L501.4020, L100.0100 #### [facility] [address] [place], [address] Lymphocytes/100 WBC (Bld) 34.8 % Normal 19-[address] [facility] Comment on above: Performed By: #### L 500.2500, L501.4020, L100.0100 #### [facility] [address] [place], [address] MCH (RBC) [Entitic mass] 28.1 pg Normal 27.0-32.[address] [facility] Comment on above: Performed By: #### L 500.2500, L501.4020, L100.0100 #### [facility] [address] [place], [address] MCHC (RBC) [Mass/Vol] 34.3 g/dL Normal 32-36 [facility] Comment on above: Performed By: #### L 500.2500, L501.4020, L100.0100 #### [facility] [address] [place], [address] MCV (RBC) [Entitic vol] 82.1 fL Normal 80-[address] [facility] Comment on above: Performed By: #### L 500.2500, L501.4020, L100.0100 #### [facility] [address] [place], [address] Monocytes/100 WBC (Bld) 5.5 % Normal 0-[address] [facility] Comment on above: Performed By: #### L 500.2500, L501.4020, L100.0100 #### [facility] [address] [place], [address] Neutrophils/100 WBC (Bld) 54.0 % Normal 47-[address] [facility] Comment on above: Performed By: #### L 500.2500, L501.4020, L100.0100 #### [facility] [address] [place], [address] Nucleated RBC (Bld) [#/Vol] 0 10*3/uL Normal 0-[address] [facility] Comment on above: Performed By: #### L 500.2500, L501.4020, L100.0100 #### [facility] [address] [place], [address] Platelet mean volume (Bld) [Entitic vol] 8.7 fL Normal 6.2-12.[address] [facility] Comment on above: Performed By: #### L 500.2500, L501.4020, L100.0100 #### [facility] [address] [place], [address] Platelets (Bld) [#/Vol] 326 10*3/uL Normal 150-[address] [facility] Comment on above: Performed By: #### L 500.2500, L501.4020, L100.0100 #### [facility] [address] [place], [address] RBC (Bld) [#/Vol] 5.58 10*6/uL Normal 4.6-6.2 [facility] Comment on above: Performed By: #### L 500.2500, L501.4020, L100.0100 #### [facility] [address] [place], [address] RDW SD 38.6 fl Normal 35.1-43.[address] [facility] Comment on above: Performed By: #### L 500.2500, L501.4020, L100.0100 #### [facility] [address] [place], [address] WBC (Bld) [#/Vol] 8.4 10*3/uL Normal 4.4-11.[address] [facility] Comment on above: Performed By: #### L 500.2500, L501.4020, L100.0100 #### [facility] [address] [place], [address] Emergency Department Summary on 08-17-2023 Emergency Department Summary [facility] Medical Records Department [address] [place] [address] Emergency Department Summary 08/17/23 MR#: [id number] Acct: [id number] Name: ELISEO ALVAREZ Rep #: [id number] : 1985 37 From: David Saunders DO PCP: Dr. Burt Ramos MD Status:REG ER Location: ED HPI History of Present Illness Chief Complaint: Chest Pain Narrative Narrative: 37-year-old presenting with chest pain/epigastric pain. Started at 10 PM which was a couple of hours ago. Patient states it feels like it is burning and it radiates up into his esophagus. He states he noted it radiated to his left jaw as well. No dizziness, lightheadedness, nausea, vomiting. No chest pressure or pleuritic chest pain. No fevers or chills. Patient admits that he had some salsa just prior to this. He also earlier ate a chicken wrap with hot sauce on it. Patient denies history of GERD although he did take some Tums and this did help the pain. Patient denies any cardiac history. He is non-smoker. [facility] Medical History Anxiety Asthma Depression Home Medications sertraline 100 mg tablet 100 mg PO DAILY 08/16/23 [History Last Taken Unknown] omeprazole 20 mg capsule,delayed release 20 mg PO DAILY #30 CAPSULES 08/17/23 [Rx Last Taken Unknown] Allergy/AdvReac Type Severity Reaction Status Date / Time nut - unspecified [nuts] Allergy Other Verified 08/16/23 23:42 Social History Smoking Status: Never smoker ROS ROS ED Constitutional Constitutional ED: Denies chills, fever(s) or sweats Eyes Eyes: Denies blurry vision or change in vision ENT ENT ED: Denies ear pain or sore throat Cardiovascular Cardiovascular: Reports as per HPI; Denies chest pain, palpitations or racing heartbeat Respiratory/Chest Respiratory/Chest: Denies cough, dyspnea or sputum Gastrointestinal Gastrointestinal: Reports other Details: Epigastric pain, dyspepsia ; Denies abdominal pain, constipation, diarrhea, nausea or vomiting Genitourinary Genitourinary ED: Denies dysuria, hematuria or urinary frequency Musculoskeletal Musculoskeletal: Denies arthralgias, myalgias or neck pain Integumentary Denies abscess, Abrasions or rash Neurologic Neurologic: Denies headache(s), paresthesias or weakness Psychiatric Psychiatric: Denies anxiety, depression, suicidal ideation or suicidal thoughts Endocrine Endocrinology: Denies polydipsia or polyuria EXAM Physical Exam Const Vital Signs: 08/16/23 23:41 08/16/23 23:45 08/16/23 23:56 Temperature 97.6 F L Temperature Source Temporal Pulse Rate 93 Respiratory Rate 20 H Respiratory Effort Normal Respiratory Pattern Normal Blood Pressure 201/120 H Blood Pressure Mean 147 Pulse Ox 94 Oxygen Delivery Method Room Air Room Air 08/17/23 00:05 08/17/23 00:14 08/17/23 00:15 Temperature Temperature Source Pulse Rate 81 79 76 Respiratory Rate 16 13 12 Respiratory Effort Respiratory Pattern Blood Pressure 142/90 H 178/110 H Blood Pressure Mean 107 122 Pulse Ox 97 96 96 Oxygen Delivery Method Room Air 08/17/23 00:20 08/17/23 00:27 08/17/23 00:30 Temperature Temperature Source Pulse Rate 75 88 79 Respiratory Rate 12 17 16 Respiratory Effort Respiratory Pattern Blood Pressure 168/109 H 160/105 H Blood Pressure Mean 124 123 Pulse Ox 97 94 94 Oxygen Delivery Method 08/17/23 00:40 08/17/23 00:50 08/17/23 01:00 Temperature Temperature Source Pulse Rate 77 81 86 Respiratory Rate 15 17 15 Respiratory Effort Respiratory Pattern Blood Pressure 165/108 H 167/105 H 177/117 H Blood Pressure Mean 125 120 132 Pulse Ox 95 94 96 Oxygen Delivery Method 08/17/23 01:10 08/17/23 01:20 08/17/23 01:30 Temperature Temperature Source Pulse Rate 84 78 77 Respiratory Rate 14 15 15 Respiratory Effort Respiratory Pattern Blood Pressure 159/112 H 176/106 H 172/109 H Blood Pressure Mean 128 122 124 Pulse Ox 94 94 92 Oxygen Delivery Method 08/17/23 01:40 08/17/23 01:50 08/17/23 01:50 Temperature Temperature Source Pulse Rate 96 73 73 Respiratory Rate 20 H 13 13 Respiratory Effort Respiratory Pattern Blood Pressure 139/76 H 140/95 H Blood Pressure Mean 97 108 Pulse Ox 93 Oxygen Delivery Method Room Air 08/17/23 02:00 08/17/23 02:10 08/17/23 02:20 Temperature Temperature Source Pulse Rate 78 83 84 Respiratory Rate 15 15 14 Respiratory Effort Respiratory Pattern Blood Pressure 153/97 H 158/99 H 165/110 H Blood Pressure Mean 106 118 128 Pulse Ox 94 95 Oxygen Delivery Method Room Air (more content not included)... Normal [facility] L501.4020on 08-17-2023 TROPONIN-I HS 5 pg/mL Normal 3.0-78.[address] [facility] Comment on above: Order Comment: 'TROP ' Serial specimen #1, #2 or #3: 2 Result Comment: Plea se Note: New Test Units and Gender Specific Reference Ranges. For more information see Policy Stat Procedure Hendricks High Sensitivity Troponin (TNIH) and attachments. Performed By: #### L 501.4020 #### [facility] [address] [place], [place], [id number] TROPONIN-I HS 4 pg/mL Normal 3.0-78.[address] [facility] Comment on above: Order Comment: 'TROP ' Serial specimen #1, #2 or #3: 1 Result Comment: Plea se Note: New Test Units and Gender Specific Reference Ranges. For more information see Policy Stat Procedure Hendricks High Sensitivity Troponin (TNIH) and attachments. Performed By: #### L 500.2500, L501.4020, L100.0100 #### [facility] [address] [place], [address] No Panel InformationOrdered By: David Saunders on 08-17-2023 Troponin I High Sensitivity 5 pg/mL 3.0-78.[address] [facility] Comment on above: Please Note: New [place] Units and Gender Specific Reference Ranges. For more information see Policy Stat Procedure Hendricks High Sensitivity Troponin (TNIH) and attachments. Absolute lymphocyte countOrd ered By: David Saunders on 08-16-2023 Lymphocytes Auto (Unsp spec) [#/Vol] 2.92 10*3/uL 0.83-4.[address] [facility] Basophil percentageOrdered B y: David Saunders on 08-16-2023 Basophils/100 WBC (Bld) 0.5 % 0-[address] [facility] Chloride [Moles/Vol] 105 mmol/L 98-107 [facility] Eosinophils/100 WBC (Bld) 4.4 % 0-[address] [facility] Glucose [Mass/Vol] 145 mg/dL 74-[address] [facility] Comment on above: Fasting Glucose resu lt greater than or equal to 126 mg/dL suggests DIABETES MELLITUS per A.D.A. criteria. Neutrophils (Bld) [#/Vol] 4.5 10*3/uL 2.0-7.[address] [facility] Neutrophils/100 WBC (Bld) 54.0 % 47-[address] [facility] Potassium [Moles/Vol] 3.8 mmol/L 3.5-5.1 [facility] Sodium [Moles/Vol] 137 mmol/L 136-[address] [facility] WBC (Bld) [#/Vol] 8.4 10*3/uL 4.4-11.[address] [facility] Blood erythrocytes count (nu mber/volume)Ordered By: David Saunders on 08-16-2023 RBC (Bld) [#/Vol] 5.58 10*6/uL 4.6-6.2 [facility] Blood hemoglobin measurement (mass/volume)Ordered By: David Saunders on 08-16-2023 Hemoglobin (Bld) [Mass/Vol] 15.7 g/dL 13.0-16.[address] [facility] Blood lymphocytes/100 leukoc ytesOrdered By: David Saunders on 08-16-2023 Lymphocytes/100 WBC (Bld) 34.8 % 19-[address] [facility] Blood monocytes/100 leukocyt esOrdered By: David Saunders on 08-16-2023 Monocytes/100 WBC (Bld) 5.5 % 0-[address] [facility] Blood platelet mean volumeOr dered By: David Saunders on 08-16-2023 Platelet mean volume (Bld) [Entitic vol] 8.7 fL 6.2-12.[address] [facility] Chest 1 View (Portable)on Chest 1 View (Portable) [facility] Imaging Services [address] [place] [id number] Chest 1 View (Portable) MR#: [id number] Acct: [id number] Name: ELISEO ALVAREZ Rep #: [id number] : 1985 M 37 From: Phi Basurto MD PCP: Dr. Burt Ramos MD Status: REG ER Study: Chest 1 View (Portable) Date of Exam: 08/16/23 Exam# [id number] Ordering Dr: David Saunders DO [id number] INDICATION: chest pain EXAMINATION/TECHNIQUE: X-RAY - XR Chest 1 View COMPARISON: None. FINDINGS: LINES/DEVICES: None. LUNGS: No consolidation or evidence of an effusion. No evidence of edema or a pneumothorax. MEDIASTINUM AND CARDIOVASCULAR STRUCTURES: Cardiac silhouette is normal in size and contour. Mediastinum is unremarkable. BONES AND SOFT TISSUES: No acute abnormality. RAD/Chest 1 View (Portable) IMPRESSION: No evidence of cardiopulmonary disease. Electronically Signed: Phi BasurtoDO at 0:38 EST , CC: Dr. David Saunders DO; Dr. Burt Ramos MD Water Attendant: Signed Normal [facility] Determination of erythrocyte mean corpuscular volume (MCV)Ordered By: David Saunders on 08-16-2023 MCV (RBC) [Entitic vol] 82.1 fL 80-[address] [facility] Hematocrit Auto (Bld) [Volum e fraction]Ordered By: David Saunders on 08-16-2023 Hematocrit (Bld) [Volume fraction] 45.8 % 40-[address] [facility] - Chemistry and C hemistry - challengeOrdered By: David Saunders on 08-16-2023 CO2 [Moles/Vol] 26.0 mmol/L 21.0-32.[address] [facility] Urea nitrogen/Creatinine [Mass ratio] 15.9 mg/mg 10-[address] [facility] - Hematology and Cell countsOrdered By: David Saunders on 08-16-2023 Erythrocyte distribution width (RBC) [Entitic vol] 38.6 fL 35.1-43.[address] [facility] Erythrocyte distribution width (RBC) [Ratio] 13.0 % 11.6-14.[address] [facility] Immature granulocytes/100 WBC (Bld) 0.800 % 0.0-0.[address] [facility] Comment on above: IG% - Immature Granu locytes (promyelocytes, myelocytes and metamyelocytes) > 1% indicates that a LEFT SHIFT is Present. MCH (RBC) [Entitic mass] 28.1 pg 27.0-32.[address] [facility] Nucleated RBC/100 WBC (Bld) [Ratio] 0 % 0-[address] [facility] MCHC Auto (RBC) [Mass/Vol]Or dered By: David Saunders on 08-16-2023 MCHC (RBC) [Mass/Vol] 34.3 g/dL 32-36 [facility] No Panel InformationOrdered By: David Saunders on 08-16-2023 Estimated Creatinine Clearance Calc 88.37 ml/min [facility] Estimated GFR (MDRD) Amer 100 mL/min >[address] [facility] Comment on above: GFR Calc Estimated GFR (MDRD) Non-Af Amer 82 mL/min >[address] [facility] Comment on above: Non- GFR Calc Platelets bldOrdered By: Sander Saunders on 08-16-2023 Platelets (Bld) [#/Vol] 326 10*3/uL 150-[address] [facility] Serum or plasma calcium delma urement (mass/volume)Ordered By: David Saunders on 08-16-2023 Calcium [Mass/Vol] 8.8 mg/dL 8.5-10.[address] [facility] Serum or plasma creatinine m easurement (mass/volume)Ordered By: David Saunders on 08-16-2023 Creatinine [Mass/Vol] 1.07 mg/dL 0.70-1.30 [facility] Comment on above: The validity of the calculated GFR & GFRAA in patients over 70 years has not been determined. Clinical correlation is essential. Serum or plasma urea nitroge n measurement (mass/volume)Ordered By: David Saunders on 08-16-2023 Urea nitrogen [Mass/Vol] 17 mg/dL 7-[address] [facility] Thin prep Papanicolaou smear with manual screeningOrdered By: David Saunders on 08-16-2023 Thin prep Papanicolaou smear with manual screening 6 5-[address] [facility] Office Visit Reporton [address] [facility] [address] [place] [address] OFFICE VISIT Date of Service: 04/05/23 MR#: [id number] Acct: [id number] Patient: ELISEO ALVAREZ Rep #: [id number] : 1985 Provider: JANAE Grace Age/Sex: 37/M Location: [facility] Status: Signed Intake Vital Signs 04/05/21 10:17 04/05/23 09:20 Height 5 ft 7 in 5 ft 7 in Intake Visit Reasons: 2 STEP TB TEST Allergies nut - unspecified [nuts] Allergy (Verified 07/13/22 08:11) Other Office Procedures [facility] Billing Sheet Testing TB Test: Yes 04/12/2314 Date Evans Perez Signature: Date (if applicable) CC: [facility] XR Knee - left 4 Viewson IMPRESSION: Unremark able left knee Water Attendant: PSCB Transcribe Date/Time: Jan 27 2023 7:53A Dictated by : NELIDA HERRING MD This examination was interpreted and the report reviewed and electronically signed by: NELIDA HERRING MD on Jan 27 2023 7:53AM EST [facility] * * *Final Report* * * DATE OF EXAM: Jan 26 2023 1:23PM CHARLI 5202 - XR KNEE 4V AP/PA BOTH+LAT/NIKOLAY LT / PROCEDURE REASON: [id number] * * * * Physician Interpretation * * * * PROCEDURE: Left knee INDICATION: Pain .left knee pain TECHNIQUE: XR KNEE 4V AP/PA BOTH+LAT/NIKOLAY LT COMPARISON: None FINDINGS: No fracture or dislocation. No significant joint space narrowing or marginal spur formation. No joint effusion or acute soft tissue abnormality. [facility] Provider, Oziel jiménez Loleta - 01/27/2023 * * *Final Report* * * DATE OF EXAM: Jan 26 2023 1:23PM 5202 - XR KNEE 4V AP/PA BOTH+LAT/NIKOLAY LT / PROCEDURE REASON: [id number] * * * * Physician Interpretation * * * * PROCEDURE: Left knee INDICATION: Pain .left knee pain TECHNIQUE: XR KNEE 4V AP/PA BOTH+LAT/NIKOLAY LT COMPARISON: None FINDINGS: No fracture or dislocation. No significant joint space narrowing or marginal spur formation. No joint effusion or acute soft tissue abnormality. IMPRESSION IMPRESSION: Unremarkable left knee Water Attendant: PSCB Transcribe Date/Time: Jan 27 2023 7:53A Dictated by : NELIDA HERRING MD This examination was interpreted and the report reviewed and electronically signed by: NELIDA HERRING MD on Jan 27 2023 7:53AM EST [facility] XR Knee - left 4 ViewsOrdere d By: Ccf Provider on 01-27-2023 [facility] XR KNEE 4V AP/PA BOTH+LAT/ME R LTon 01-26-2023 XR KNEE 4V AP/PA BOTH+LAT/NIKOLAY LT * * *Final Report* * * DATE OF EXAM: Jan 26 2023 1:23PM CHARLI 5202 - XR KNEE 4V AP/PA BOTH+LAT/NIKOLAY LT / PROCEDURE REASON: [id number] * * * * Physician Interpretation * * * * PROCEDURE: Left knee INDICATION: Pain .left knee pain TECHNIQUE: XR KNEE 4V AP/PA BOTH+LAT/NIKOLAY LT COMPARISON: None FINDINGS: No fracture or dislocation. No significant joint space narrowing or marginal spur formation. No joint effusion or acute soft tissue abnormality. IMPRESSION: Unremarkable left knee Water Attendant: PSCRose Mary Transcribe Date/Time: Jan 27 2023 7:53A Dictated by : NELIDA HERRING MD This examination was interpreted and the report reviewed and electronically signed by: NELIDA HERRING MD on Jan 27 2023 7:53AM EST [id number] [facility] XR Knee - left 4 Viewson Radiology Study observation (narrative) [facility] Vital Signs Date Time Vital Sign Value Performing Clinician Facility 03-15-2024 08:20-0400 Diastolic blood pressure 86 mm[Hg] Sammy Parker APRN.CNP Work Phone: [facility] 03-15-2024 08:20-0400 Systolic blood pressure 136 mm[Hg] Sammy Parker APRN.CNP Work Phone: [facility] 03-15-2024 08:04-0400 Body height 172 cm Sammy Parker APRN.CNP Work Phone: [facility] 03-15-2024 08:04-0400 Body mass index (BMI) [Ratio] 48.6 kg/m2 Sammy Parker APRN.CNP Work Phone: [facility] 03-15-2024 08:04-0400 Body weight 143.79 kg Sammy Parker REGULATORY CONSULTANT.VETERINARY INSPECTOR Work Phone: [facility] 03-15-2024 08:04-0400 Heart rate 85 /min Sammy Parker REGULATORY CONSULTANT.VETERINARY INSPECTOR Work Phone: [facility] 03-15-2024 08:04-0400 Respiratory rate 18 /min Sammy Parker REGULATORY CONSULTANT.VETERINARY INSPECTOR Work Phone: [facility] 03-15-2024 08:04-0400 SaO2% (BldA) [Mass fraction] 98 % Sammy Parker REGULATORY CONSULTANT.VETERINARY INSPECTOR Work Phone: [facility] 08-17-2023 03:10-0500 Diastolic blood pressure 98 mm[Hg] [facility] 08-17-2023 03:10-0500 Heart rate 73 /min [facility] 08-17-2023 03:10-0500 Respiratory rate 11 /min [facility] 08-17-2023 03:10-0500 SaO2% (BldA) [Mass fraction] 93 % [facility] 08-17-2023 03:10-0500 Systolic blood pressure 146 mm[Hg] [facility] 08-16-2023 23:41-0500 Body height 170.18 cm [facility] 08-16-2023 23:41-0500 Body mass index (BMI) [Ratio] 50.5 kg/m2 [facility] 08-16-2023 23:41-0500 Body temperature 97.6 [degF] [facility] 08-16-2023 23:41-0500 Body weight 146.2 kg [facility] 12-21-2021 13:49-0400 Body temperature 98.91 [degF] Sammy Parker REGULATORY CONSULTANT.VETERINARY INSPECTOR Work Phone: [facility] 12-21-2021 13:49-0400 Body weight 133.81 kg Sammy Parker REGULATORY CONSULTANT.VETERINARY INSPECTOR Work Phone: [facility] 12-21-2021 13:49-0400 Diastolic blood pressure 82 mm[Hg] Sammy Parker REGULATORY CONSULTANT.VETERINARY INSPECTOR Work Phone: [facility] 12-21-2021 13:49-0400 Heart rate 96 /min Sammy Parker REGULATORY CONSULTANT.VETERINARY INSPECTOR Work Phone: [facility] 12-21-2021 13:49-0400 Respiratory rate 16 /min Sammy Parker REGULATORY CONSULTANT.VETERINARY INSPECTOR Work Phone: [facility] 12-21-2021 13:49-0400 Systolic blood pressure 120 mm[Hg] Sammy Parker REGULATORY CONSULTANT.VETERINARY INSPECTOR Work Phone: [facility] Encounters Encounter Date Encounter Type Care Provider Facility Start: 05-05-2025 End: 05-06-2025 ambulatory [facility] Facility:[facility] Start: 04-17-2025 End: 04-17-2025 ambulatory BELKYSMIKE BARRY Facility:[facility] Start: 04-16-2025 End: 04-17-2025 Telephone encounter Belkys Barry PA-C Work Phone: Urology Start: 03-28-2025 End: 03-28-2025 ambulatory SAMMY PARKER Facility:[facility] Start: 03-28-2025 End: 03-28-2025 ambulatory [facility] Facility:[facility] Start: 03-28-2025 Physical examination [facility] Start: 10-14-2024 End: 10-14-[address] RD Work Phone: [facility] Comment on above: Hyperlipidemia, unsp ecified hyperlipidemia type Start: 10-14-2024 End: 10-14-2024 Telemedicine consultation with patient Zoey M Ayan DENIS Work Phone: [facility] Start: 10-14-2024 End: 10-14-2024 ambulatory ZOEY BOTELLO Facility:[id number] Start: 09-27-2024 End: 09-27-2024 ambulatory Sammy Parker REGULATORY CONSULTANT.VETERINARY INSPECTOR Work Phone: [facility] Comment on above: Labs Start: 09-27-2024 End: 09-27-2024 E-mail encounter from caregiver Sammy Parker APRN.VETERINARY INSPECTOR Work Phone: [facility] [place] Start: 09-26-2024 End: 09-26-2024 ambulatory SAMMY PARKER Facility:[facility] Start: 08-25-2024 End: 08-26-2024 Refill Bev Keyur WINSTON.VETERINARY INSPECTOR Work Phone: [facility] [place] Comment on above: Refill Request Start: 05-08-2024 End: 05-08-2024 ambulatory María Byrne MD Work Phone: Endocrinology Comment on above: Hypogonadism in male Start: 05-08-2024 End: 05-08-2024 Telemedicine consultation with patient María Byrne MD Work Phone: Endocrinology Start: 04-01-2024 ambulatory Sammy ADAMSON RN.VETERINARY INSPECTOR Work Phone: [facility] [place] Comment on above: Testosterone results Start: 04-01-2024 E-mail encounter fro m caregiver Sammy Parker APRN.VETERINARY INSPECTOR Work Phone: [facility] [place] Start: 03-18-2024 ambulatory Sammy ADAMSON RN.VETERINARY INSPECTOR Work Phone: [facility] [place] Comment on above: labs Start: 03-18-2024 E-mail encounter fro m caregiver Sammy Parker APRN.VETERINARY INSPECTOR Work Phone: [facility] [place] Start: 03-15-2024 End: 03-15-2024 Patient encounter status Sammy Parker APRN.VETERINARY INSPECTOR Work Phone: [facility] Work Phone: Start: 03-15-2024 End: 03-15-2024 Periodic preventive med est patient 18-39 yrs Samym Parker APRN.VETERINARY INSPECTOR Work Phone: [facility] [place] Comment on above: Wellness examination (Primary Dx); Screening for depression; Encounter for screening examination for other mental health and behavioral disorders; Encounter for immunization; Fatigue, unspecified type; Class 3 severe obesity with body mass index (BMI) of 45.0 to 49.9 in adult, unspecified obesity type, unspecified whether serious comorbidity present (HCC); Screening for tuberculosis Start: 08-17-2023 End: 08-17-2023 Emergency department patient visit Burt Ramos Facility:[facility] Start: 08-16-2023 End: 08-17-2023 Emergency department patient visit [facility] Work Phone: Start: 04-05-2023 End: 04-05-2023 ambulatory No Primary Care Physician Facility:[facility] Start: 01-26-2023 ambulatory UNKNOWN PROVIDER Facili ty:[facility] Start: 01-26-2023 End: 01-26-2023 Subsequent hospital visit by physician [facility] Work Phone: Radiology Comment on above: Pain [R52] Start: 12-23-2022 ambulatory Pcp (Historical) [facility] Start: 12-23-2022 Telephone encounter Sammy roach APRN.CHERY Work Phone: [facility] Comment on above: Results Start: 08-22-2022 Refill Sammy ADAMSON RN.VETERINARY INSPECTOR Work Phone: [facility] Comment on above: Refill Request Start: 05-23-2022 Refill Sammy ADAMSON RN.VETERINARY INSPECTOR Work Phone: [facility] Comment on above: Refill Request Start: 12-21-2021 End: 12-21-2021 Patient encounter procedure Sammy Parker APRN.VETERINARY INSPECTOR Work Phone: [facility] Comment on above: Eustachian tube dysf unction, bilateral (Primary Dx) Start: 11-24-2021 ambulatory Sammy ADAMSON RN.CHERY Work Phone: [facility] Comment on above: 100 mg sert is good Procedures Date Procedure Procedure Detail Performing Clinician Start: 03-28-2025 Lipid 1996 panel - S traci or Plasma Belkys Barry PA-C Work Phone: Start: 09-26-2024 Lipid 1996 panel - S traci or Plasma Sammy Parker APRN.VETERINARY INSPECTOR Work Phone: Start: 03-15-2024 Adult depression screening assessment Sammy Parker REGULATORY CONSULTANT.CHERY Work Phone: Start: 03-15-2024 Lipid 1996 panel - S traci or Plasma Sammy Parker REGULATORY CONSULTANT.CHERY Work Phone: Start: 08-16-2023 Plain chest X-ray Start: 01-26-2023 Radiologic exam knee complete 4/more views Yeny Zarate PA-C Work Phone: Start: 03-08-2021 Adult depression screening assessment Sammy Parker REGULATORY CONSULTANT.CHERY Work Phone: Start: 03-08-2021 Lipid 1996 panel - S traci or Plasma Sammy Parker REGULATORY CONSULTANT.VETERINARY INSPECTOR Work Phone: Plan of Treatment Date Care Activity Detail Author Start: 03-15-2034 Urine microalbumin profile DTaP,Tdap,Td Vaccine (4 - Td or Tdap) [facility] Start: 03-28-2030 Lipid panel Lipid Screening [facility] Start: 09-26-2029 Lipid panel Lipid Screening [facility] Start: 03-15-2029 Lipid panel Lipid Screening [facility] Start: 03-08-2026 Lipid panel Lipid Screening [facility] Start: 03-08-2026 LIPID SCREEN LIPID SCREEN [facility] Start: 05-06-2025 End: 05-06-2025 Patient encounter procedure 05/06/2025 2:00 PM EDT Office Visit Neurology [address] [place] [address] This should be mailed to me Neurology Comment on above: This should be sara d to me Start: 04-21-2025 Influenza vaccination Influenza Vacc ine (#1) [facility] Start: 04-16-2025 End: 07-16-2025 Follitropin [Units/volume] in Serum or Plasma FOLLICLE STIMULATING HORMONE Lab Routine Hypogonadism in male Expected: 04/16/2025, Expires: 07/16/2025 [facility] Work Phone: Comment on above: Expected: 04/16/2025 , Expires: 07/16/2025 Start: 04-16-2025 End: 07-16-2025 Lutropin [Units/volume] in Serum or Plasma LUTEINIZING HORMONE Lab Routine Hypogonadism in male Expected: 04/16/2025, Expires: 07/16/2025 [facility] Comment on above: Expected: 04/16/2025 , Expires: 07/16/2025 Start: 04-16-2025 End: 07-16-2025 Prolactin [Mass/volume] in Serum or Plasma PROLACTIN Lab Routine Hypogonadism in male Expected: 04/16/2025, Expires: 07/16/2025 [facility] Comment on above: Expected: 04/16/2025 , Expires: 07/16/2025 Start: 04-16-2025 End: 07-16-2025 Prostate specific Ag [Mass/volume] in Serum or Plasma PROSTATE-SPECIFIC ANTIGEN DIAGNOSTIC Lab Routine Hypogonadism in male Expected: 04/16/2025 (Approximate), Expires: 07/16/2025 [facility] Comment on above: Expected: 04/16/2025 (Approximate), Expires: 07/16/2025 Start: 04-16-2025 End: 07-16-2025 Testosterone [Mass/volume] in Serum or Plasma TESTOSTERONE, TOTAL BY IMMUNOASSAY (ADULT MALES, OR INDIVIDUALS ON TESTOSTERONE THERAPY) Lab Routine Hypogonadism in male Expected: 04/16/2025, Expires: 07/16/2025 [facility] Comment on above: Expected: 04/16/2025 , Expires: 07/16/2025 Start: 03-27-2025 End: 06-26-2025 Comprehensive metabolic 2000 panel - Serum or Plasma COMPREHENSIVE METABOLIC PANEL Lab Routine Hyperlipidemia, unspecified hyperlipidemia type Expected: 03/27/2025 (Approximate), Expires: 06/26/2025 [facility] Comment on above: Expected: 03/27/2025 (Approximate), Expires: 06/26/2025 Start: 03-27-2025 End: 06-26-2025 Lipid 1996 panel - Serum or Plasma LIPID PANEL BASIC Lab Routine Hyperlipidemia, unspecified hyperlipidemia type Expected: 03/27/2025 (Approximate), Expires: 06/26/2025 [facility] Work Phone: Comment on above: Expected: 03/27/2025 (Approximate), Expires: 06/26/2025 Start: 03-15-2025 Anxiety Screening Anxiety Screening [facility] Start: 03-15-2025 Covid-19 Vaccine () Covid-19 Vaccine () [facility] Comment on above: Postponed from 04/21 (Declined at this time) Start: 03-15-2025 Depression Screening Depression Scre ening [facility] Start: 09-21-2024 End: 09-21-2024 ambulatory 09/21/2024 8:00 AM EST Results Only [place] [facility] [address] [place] [address] [place] [facility] Start: 09-18-2024 End: 12-18-2024 Hemoglobin A1c in Blood HEMOGLOBIN A1C Lab Routine Elevated glucose Expected: 09/18/2024 (Approximate), Expires: 12/18/2024 [facility] Comment on above: Expected: 09/18/2024 (Approximate), Expires: 12/18/2024 Start: 09-18-2024 End: 12-18-2024 Lipid 1996 panel - Serum or Plasma LIPID PANEL BASIC Lab Routine Hyperlipidemia, unspecified hyperlipidemia type Expected: 09/18/2024 (Approximate), Expires: 12/18/2024 [facility] Work Phone: Comment on above: Expected: 09/18/2024 (Approximate), Expires: 12/18/2024 Start: 05-08-2024 End: 05-08-2024 ambulatory 05/08/2024 10:[address] [facility] [address] [place] [address] María Byrne MD [address] [place] [address] Hypogonadism in male [E29.1] Endocrinology Comment on above: Hypogonadism in male [E29.1] Start: 04-21-2024 Covid-19 Vaccine () Covid-19 Vaccine () [facility] Start: 04-21-2024 Covid-19 Vaccine ( season) Covid-19 Vaccine ( season) [facility] Start: 04-21-2024 Influenza vaccination Influenza Vacc ine (#1) [facility] Start: 03-15-2024 End: 06-14-2024 BLOOD TB SCREEN [facility] Comment on above: Expected: 03/15/2024 , Expires: 06/14/2024 Start: 03-15-2024 End: 06-14-2024 CBC W Auto Differential panel - Blood [facility] Comment on above: Expected: 03/15/2024 , Expires: 06/14/2024 Start: 03-15-2024 End: 06-14-2024 Comprehensive metabolic 2000 panel - Serum or Plasma [facility] Comment on above: Expected: 03/15/2024 , Expires: 06/14/2024 Start: 03-15-2024 End: 06-14-2024 Lipid 1996 panel - Serum or Plasma [facility] Work Phone: Comment on above: Expected: 03/15/2024 , Expires: 06/14/2024 Start: 03-15-2024 End: 06-14-2024 TESTOSTERONE, FREE AND TOTAL [facility] Comment on above: Expected: 03/15/2024 , Expires: 06/14/2024 Start: 03-07-2024 Urine microalbumin profile DTAP,TDAP,TD (3 - Td or Tdap) [facility] Start: 08-17-2023 [facility] Start: 08-16-2023 End: 08-17-[address] [facility] Start: 08-21-2022 DEPRESSION ASSESSMENT DEPRESSION ASS ESSMENT [facility] Start: 04-21-2022 Influenza vaccination INFLUENZA (#1) [facility] Start: 03-08-2022 Adult depression screening assessment DEPRESSION SCREENING [facility] Start: 10-27-2021 COVID-19 VACCINE (4 - Booster for Pfizer series) COVID-19 VACCINE (4 - Booster for Pfizer series) [facility] Start: 08-21-2021 DEPRESSION ASSESSMENT DEPRESSION ASS ESSMENT [facility] Start: 2012 HPV Vaccine (1 - 3-d ose SCDM series) HPV Vaccine (1 - 3-dose SCDM series) [facility] Start: 2003 Anxiety Screening Anxiety Screening [facility] Start: 2003 Depression Screening Depression Scre ening [facility] Follitropin [Units/volume] in Serum or Plasma FOLLICLE STIMULATING HORMONE Lab Routine Hypogonadism in male 04/17/2025 8:15 AM EDT [facility] Lutropin [Units/volu me] in Serum or Plasma LUTEINIZING HORMONE Lab Routine Hypogonadism in male 04/17/2025 8:15 AM EDT [facility] Patient Education ED Gastritis ( Adult) ED Chest Pain, Noncardiac (Child) [facility] Work Phone: Patient referral [facility] Work Phone: Prolactin [Mass/volu me] in Serum or Plasma PROLACTIN Lab Routine Hypogonadism in male 04/17/2025 8:15 AM EDT [facility] Prostate specific Ag [Mass/volume] in Serum or Plasma PROSTATE-SPECIFIC ANTIGEN DIAGNOSTIC Lab Routine Hypogonadism in male 04/17/2025 8:15 AM EDT [facility] Testosterone [Mass/volume] in Serum or Plasma TESTOSTERONE, TOTAL BY IMMUNOASSAY (ADULT MALES, OR INDIVIDUALS ON TESTOSTERONE THERAPY) Lab Routine Hypogonadism in male 04/17/2025 8:15 AM T [facility] Immunizations Immunization Date Immunization Notes Care Provider Romeo stallworth 05-28-2024 influenza virus vacc ine, unspecified formulation Belkys Barry PA-C Work Phone: [facility] 03-15-2024 tetanus toxoid, redu rasta diphtheria toxoid, and acellular pertussis vaccine, adsorbed Sammy Keith REGULATORY CONSULTANT.VETERINARY INSPECTOR Work Phone: [facility] 06-08-2023 Influenza, injectabl e, Madin Huron Canine Kidney, preservative free, quadrivalent Sammy Keith REGULATORY CONSULTANT.VETERINARY INSPECTOR Work Phone: [facility] 06-08-2023 influenza virus vacc ine, unspecified formulation Sammy Keith REGULATORY CONSULTANT.VETERINARY INSPECTOR Work Phone: [facility] 05-27-2022 Influenza, injectabl e, Madin Huron Canine Kidney, preservative free, quadrivalent Sammy Keith REGULATORY CONSULTANT.VETERINARY INSPECTOR Work Phone: [facility] 05-27-2022 influenza, seasonal, injectable Sammy Keith REGULATORY CONSULTANT.VETERINARY INSPECTOR Work Phone: [facility] 05-21-2021 influenza, injectabl e, quadrivalent, preservative free Sammy Keith REGULATORY CONSULTANT.VETERINARY INSPECTOR Work Phone: [facility] 01-22-2021 COVID-19 vaccine, ag e 12+ yr (PFIZER-BIONTECH - [facility]) Sammy Keith REGULATORY CONSULTANT.VETERINARY INSPECTOR Work Phone: [facility] 12-31-2020 COVID-19 vaccine, ag e 12+ yr (PFIZER-BIONTECH - PURPLE TOP) Sammy Keith REGULATORY CONSULTANT.VETERINARY INSPECTOR Work Phone: [facility] 06-19-2020 influenza, injectabl e, quadrivalent, preservative free Sammy Keith REGULATORY CONSULTANT.VETERINARY INSPECTOR Work Phone: [facility] 09-12-2014 hepatitis B vaccine, adult dosage Sammy Keith REGULATORY CONSULTANT.VETERINARY INSPECTOR Work Phone: [facility] 04-07-2014 hepatitis B vaccine, adult dosage Sammy Keith REGULATORY CONSULTANT.VETERINARY INSPECTOR Work Phone: [facility] 03-07-2014 hepatitis B vaccine, adult dosage Sammy Keith REGULATORY CONSULTANT.VETERINARY INSPECTOR Work Phone: [facility] 03-07-2014 tetanus toxoid, redu rasta diphtheria toxoid, and acellular pertussis vaccine, adsorbed Sammy Keith REGULATORY CONSULTANT.VETERINARY INSPECTOR Work Phone: [facility] 04-10-1998 measles, mumps and rubella virus vaccine Sammy Keith REGULATORY CONSULTANT.VETERINARY INSPECTOR Work Phone: [facility] 04-10-1998 TD(adult) unspecifie d formulation Sammy Keith REGULATORY CONSULTANT.VETERINARY INSPECTOR Work Phone: [facility] Payers Date Payer Category Payer Self-pay [id number] 2020 Private Health Insurance [id number] 2020 Unknown MMO MMO SU[employer] PLUS [id number] 2020-Present [phone] [address] [place] [address] PPO [id number] 2020 Unknown [id number] 2020 Unknown [id number] Unknown ANISH [id number] Unknown [id number] Unknown [id number] Social History Date Type Detail Facility Start: 03-08-2021 End: 12-13-2022 Tobacco smoking status NHIS Never smoked tobacco [facility] Start: 03-08-2021 End: 12-13-2022 Tobacco use and exposure Smokeless tobacco non-user [facility] Start: 04-08-2021 End: 03-28-2025 Alcohol intake Current drinker of alcohol (finding) [facility] Start: 03-06-2021 History SDOH Alcohol Frequency 4 [facility] Start: 03-06-2021 End: 08-27-2021 History SDOH Alcohol Std Drinks 2 [facility] Start: 03-06-2021 History SDOH Alcohol Binge 3 [facility] Start: 03-08-2021 History SDOH Alcohol Comment 3-4 beers per week [facility] Start: 03-06-2021 End: 08-27-2021 History SDOH Social Connections Phone 1 [facility] Start: 03-06-2021 History SDOH Physica l Activity MPS 6 [facility] Start: 03-06-2021 Education 18 [facility] Start: 1985 Sex Assigned At Not on file C [facility] Start: 08-16-2023 Tobacco smoking stat us NHIS Unknown if ever smoked [facility] Start: 1985 Sex Assigned At Male [facility] Start: 01-26-2023 End: 03-14-2024 History of Social function [facility] Start: 01-26-2023 End: 03-14-2024 [facility] [employer] [facility] Has the [employer], [employer], or [employer] threatened to shut off services in your home in past 12Mo No [facility] Start: 09-12-2014 In a typical week, h ow many times do you talk on the telephone with family, friends, or neighbors? Patient declined [facility] Are you now , , , , never or living with a partner? [facility] How often to you hav e a drink containing alcohol? 2-4 times a month [facility] How many standard dr inks containing alcohol do you have on a typical day? 3 or 4 [facility] How often do you hav e 6 or more drinks on 1 occasion? Less than monthly [facility] How hard is it for y ou to pay for the very basics like food, housing, medical care, and heating Not very hard [facility] Do you feel stress - tense, restless, nervous, or anxious, or unable to sleep at night because your mind is troubled all the time - these days [OSQ] To some extent [facility] (I/We) worried wheth er (my/our) food would run out before (I/we) got money to buy more. Never true [facility] How often to you hav e a drink containing alcohol? 2-3 time sa week [facility] How often do you hav e 6 or more drinks on 1 occasion? Monthly [facility] Do you feel stress - tense, restless, nervous, or anxious, or unable to sleep at night because your mind is troubled all the time - these days [OSQ] Very much [facility] Mental Status Date Assessment Result Facility 08-16-2023 Cognitive function Voice/Name [facility] Work Phone: Clinical Notes 12-21-2021 to 05-12-2025 Telephone Encounter - Rashida Tang APRN.VETERINARY INSPECTOR - 04/16/2025 3:43 PM EDTTelephone Encounter - Rashida Tang APRN.VETERINARY INSPECTOR - 04/16/2025 3:43 PM EDTPatient InstructionsPatient Instructions Note Date & Type Note Facility 05-12-2025 Note HNO ID: [id number] Author: ?, ?, ? Service: ? Author Type: ? Type: Progress Notes Filed: 05/12/2025 16:14 Note Text: Per readers no SaO2 data . Spoke with patient he stated that we was not interested in attempting the study again at this time. [facility] 05-08-2025 Note HNO ID: [id number] Author: ?, ?, ? Service: ? Author Type: ? Type: Progress Notes Filed: 05/08/2025 09:34 Note Text: Sleep Study Check-In Documentation Date: May 08, 2025 Name: Eliseo Alvarez Comments: HST was returned in working order with all sleep questionnaires Bev Asencio [facility] 05-05-2025 Note HNO ID: [id number] Author: ?, ?, ? Service: ? Author Type: ? Type: Progress Notes Filed: 05/08/2025 09:34 Note Text: Nom[facility] # [id number] , date shipped out 05-05-25 FED EX ONLY Tracking mailout: [id number] Tracking return: [id number] [facility] 04-18-2025 Note HNO ID: [id number] Author: IGNACIO EDWARDS PA-C Service: ? Author Type: Physician Laborer Hoisting Type: Progress Notes Filed: 05/08/2025 09:34 Note Text: April 18, 2025 Standing PSG Orders signed in the last 90 days None Future PSG Orders signed in the last 90 days Ordered Auth. provider HOME SLEEP APNEA TEST (HSAT) [[id number]] 03/28/25 Rashida Tang APRN.VETERINARY INSPECTOR Assoc. diagnoses: Fatigue, unspecified type [R53.83] Q: Indications: A: Obstructive sleep apnea Q: STOP-BANG conditions - Select All That Apply: A: GENDER = male A2: TIREDNESS, fatigue or sleepiness during the day A3: BMI > 35 kg/m2 Q: Current use of supplemental oxygen during sleep period?: A: No All Prior Sleep Studies (past 365 days) 03/28/2025 08:07 Sleep Studies HOME SLEEP APNEA TEST (HSAT) HOME SLEEP APNEA TEST (HSAT) Order Status: Ordered, Future Expires: 03/28/26 BMI Readings from Last 2 Encounters: 03/28/25 : 46.46 kg/m? 03/15/24 : 48.60 kg/m? PAST MEDICAL HISTORY Diagnosis Date Childhood asthma without complication (HCC) grew out of it The medical record was reviewed to determine if the proposed sleep study conforms to the AASM Practice Parameters for the Indications for Polysomnography and Related Procedures, or if the sleep study is indicated for other reasons. Indications for study: ABDELRAHMAN suspected with comorbid medical or sleep disorders: Morbid obesity (BMI>40 kg/m2) Sleep study to be performed: Home Sleep Apnea Test (HSAT) Special instructions: None-follow laboratory protocol Deedee Claros Tech --- Sleep Medicine Staff Note: I have read the above protocol, edited as needed, and agree to the plan. Ignacio Edwards PA-C 7:30 AM, 04/22/2025 [facility] 04-18-2025 Note HNO ID: [id number] Author: ?, ?, ? Service: ? Author Type: ? Type: Progress Notes Filed: 05/08/2025 09:34 Note Text: April 18, 2025 An order has been received for Home Sleep Apnea Test (HSAT) from Rashida Almonte [facility] Staff. Visit prep complete. Comments :No The sleep study is scheduled for 05/06/25. Insurance: Payor: MMO / Plan: MMO SU[employer] PPO / Product Type: PPO / Payer/Plan Subscr Sex Relation Sub. Ins. ID Effective Group Num 1. MMO - MMO SUP* ELISEO ALVAREZ 1985 Male Self [id number] 08/21/20 [id number] [address] [facility] 04-16-2025 Telephone encounter Note He has lost 14# over the last year. [facility] 04-16-2025 Miscellaneous Notes He has lost 14# over the last year. documented in this encounter [facility] 03-28-2025 Note HNO ID: [id number] Author: RASHIDA TANG APRN.CHERY Service: ? Author Type: Nurse Practitioner Type: Progress Notes Filed: 03/28/2025 11:29 Note Text: This is a 39 year old male who presents today with: Cesar Dante Alvarez is a 39-year-old male with a history of depression, anxiety, and low testosterone, presenting for an annual wellness visit, with additional concerns about hyperlipidemia, low testosterone, and right knee pain. HISTORY OF PRESENT ILLNESS: Hyperlipidemia: - Family history of CAD; father recently underwent quintuple bypass surgery. - Previous discussions about starting a statin if diet and exercise were insufficient. - Currently on an aspirin regimen. Depression and Anxiety: - Taking sertraline 100 mg QHS x4 years. - Feels medication is less effective recently, with more depression and feeling very flat. - No suicidal or homicidal ideations. Low Testosterone: - Diagnosed with low testosterone; last seen by barman in April or May. - Advised to focus on weight loss and exercise; has been inconsistent but improved. - No follow-up scheduled with barman. - Attributes some weight gain and fatigue to low testosterone. - No current testosterone supplements. Right Knee Pain: - Right knee pain and weakness x1 year. - Pain when getting up from the floor; avoids using right leg due to pain. - Family history of osteoarthritis. - History of Mckeon's cyst in right knee, possibly related to overuse. - Pain managed with rest; avoids squats and uses machines at the gym to strengthen surrounding muscles. - No current medication for knee pain. PAST MEDICAL HISTORY: PAST MEDICAL HISTORY Diagnosis Date Childhood asthma without complication (HCC) grew out of it PAST SURGICAL HISTORY Procedure Laterality Date NONE ALLERGIES Peanut MEDICATIONS Current Outpatient Medications Medication Sig buPROPion XL (WELLBUTRIN XL) 150 mg 24 hr tablet Take 1 tablet by mouth once daily. sertraline (ZOLOFT) 100 mg tablet Take 1 tablet by mouth once daily. No current facility-administered medications for this visit. FAMILY HISTORY Problem Relation Age of Onset Hypothyroidism Mother Depression Father Ischemic Heart Disease Father cabg X5 Psoriasis Brother Alzheimer's Disease Maternal Grandmother Pancreatic Cancer Maternal Grandfather Lung Cancer Paternal Grandfather Social History Tobacco Use Smoking status: Never Smokeless tobacco: Never Vaping Use Vaping status: Never Used Substance Use Topics Alcohol use: Yes Comment: 3-4 beers per week Drug use: Not Currently REVIEW OF SYSTEMS Constitutional: (+) fatigue, (+) weight gain, (-) unintentional weight loss, (-) weakness, (-) appetite change Head: (-) headaches Eyes: (-) vision changes Ears/Nose/Mouth/Throat: (-) hearing changes, (-) dysphagia Neck: (-) neck masses Cardiovascular: (-) chest pain, (-) palpitations, (-) peripheral edema Respiratory: (+) intermittent snoring, (-) dyspnea, (-) witnessed apneic episodes Gastrointestinal: (+) heartburn, (-) diarrhea, (-) constipation, (-) hematochezia, (-) melena Genitourinary: (-) dysuria, (-) libido change Musculoskeletal: (+) right knee pain, (+) right leg weakness Skin: (-) rash, (-) pruritus, (-) changing moles Neurological: (-) syncope, (-) seizures, (-) tremors Psychiatric: (+) depressed mood, (-) suicidal ideation, (-) homicidal ideation Endocrine: (-) heat intolerance, (-) cold intolerance, (-) polydipsia, (-) polyuria EXAM: BP 128/96 Pulse 72 Resp 16 Wt (!) 137.4 kg (303 lb) SpO2 96% BMI 46.46 kg/m? PHYSICAL EXAM: General Appearance: Well appearing, alert, in no acute distress, well-hydrated, well nourished.. Skin: Skin color, texture, turgor normal, no suspicious rashes or lesions. Head: Normocephalic, no masses, lesions, tenderness or abnormalities. Eyes: Anicteric sclera. Pupils are equally round and reactive to light. Extraocular movements are intact. . Ears: External ears normal, canals clear. Normal TMs bilaterally. Oropharynx: Lips, mucosa, and tongue normal, teeth and gums normal, oropharynx normal. Neck: Supple, no adenopathy; thyroid symmetric, normal size, no bruits. Lungs: Lungs clear to auscultation. No wheezing, rhonchi, rales.. Heart: RRR without murmur, gallop, or rubs. No ectopy. Abdomen: Abdomen soft, non-tender. Bowel sounds normal. No masses, organomegaly. Extremities: No deformities, edema, skin discoloration, clubbing or cyanosis. Good capillary refill. . Neurologic: Gait normal. Sensation grossly intact.. ASSESSMENT/PLAN 1. Routine physical examination (Z00.00) - Annual physical exam performed. - Ordered labs: CMP, CBC, lipid panel, thyroid level, and testosterone level. - Discussed rationale for each test. - Follow-up in 1 month. Health Promotion: - Eat healthy -- go to [email or web address] to get started - Have a yearly physical - Get at [employer] (more content not included)... [facility] 10-14-[address] - 10/14/2024 12:04 PM EST Goals: Aim for 2000 MADAI daily with 100 grams protein (OR aim for 600-700 madai per meal with at least 30 grams protein) Keep daily saturated fat 11-13 grams Gradual fiber increase working up to at least 25-30 grams daily (Psyllium Husk) Include more plant based proteins: Seeds, Soy, Kazakh Yogurt, Cottage Cheese- Low fat varieties of anything dairy Weight Loss documented in this encounter [facility] 10-14-2024 Note HNO ID: [id number] Author: ZOEY BOTELLO RD Service: ? Author Type: Registered Dietitian Type: Progress Notes Filed: 10/14/2024 12:11 Note Text: Initial Nutrition Progress note MEDICAL NUTRITION THERAPY: ASSESSMENT: I have communicated my name and active licensure. The patient's identity and physical location were verified at the time of this visit. Either the patient or their legal senior patient account representative has been informed of the risks and benefits of -- and alternatives to -- treatment through a remote evaluation and consents to proceed with the evaluation remotely. Eliseo Alvarez is a 39 year old male who presents for initial diet instructions. Referring Medical diagnosis: Hyperlipidemia. Recent weight change: patient has not been weighed since February. He said he does not feel that he has lost weight, but also has not gained. Estimated energy needs based on weight in February of 317 lbs: 2000 MADAI.Diet history, food frequency assessment and/or 24-hour recall completed. Started eating breakfast and lunch this year. Before he was drinking black coffee all day and would have one meal a day. Patient has been working on eating three smaller meals a day. Reading food labels and working on increasing protein. Current diet: Breakfast: Overnight Oats or Breakfast Burritos OR Coffee (black) and One Energy Drink (SF Ghost) Lunch:[place] Wraps, Pasta Salad (High Protein), Water, Veggies Dinner: Rice and Chicken, OR [place] Sausage, Home Raised Beef with pasta or rice and vegetable Eating Out- Once a week- Pizza Hydration: Diet Soda (one a day) Snacking: more on the weekends (popcorn, chips) Weekends: Alcohol (Beer) more in the summer/warmer months (1-2 cans every other week) No apparent barriers to education identified. Current Outpatient Medications Medication Sig Dispense Refill sertraline (ZOLOFT) 100 mg tablet Take 1 tablet by mouth once daily. 90 tablet 3 No current facility-administered medications for this visit. LABS: HgA1C: 4.6 (09/26/2024) Cholesterol, Total (mg/dL) Date Value 09/26/2024 236 03/15/2024 256 Total Cholesterol, Nonfasting (mg/dL) Date Value 03/08/2021 222 HDL Cholesterol (mg/dL) Date Value 09/26/2024 44 03/15/2024 45 HDL Cholesterol, Nonfasting (mg/dL) Date Value 03/08/2021 57 LDL Cholesterol (mg/dL) Date Value 09/26/2024 158 03/15/2024 170 LDL Cholesterol, Nonfasting (mg/dL) Date Value 03/08/2021 152 Triglyceride (mg/dL) Date Value 09/26/2024 170 03/15/2024 207 Triglycerides, Nonfasting (mg/dL) Date Value 03/08/2021 66 Lab Value Units Date High Low ALB No results within date range. CREAT No results within date range. BUN No results within date range. GLUC No results within date range. DIAGNOSIS: Altered nutrition related lab values related to Hyperlipidemia evidenced by elevated TC (236) and LDL (158). INTERVENTION- Nutrition education on nutrition relationship to health. Reviewed and provided: Fats and Fiber to Help Lower Cholesterol, Guide to Fish Oils and Healthy Eating to Lower Cholesterol. Patient stated he has excellent family and friend support. Patient had good participation with conversation. Expect good compliance. MONITORING AND EVALUATION: No follow up scheduled at this time. Patient will reach out through My Chart with additional concerns and questions. 45 Minutes of Medical Nutrition Therapy provided. Zoey Botello RD [facility] 10-14-2024 History of Presen t illness Narrative Initial Nutrition Progress note MEDICAL NUTRITION THERAPY: ASSESSMENT: I have communicated my name and active licensure. The patient's identity and physical location were verified at the time of this visit. Either the patient or their legal senior patient account representative has been informed of the risks and benefits of -- and alternatives to -- treatment through a remote evaluation and consents to proceed with the evaluation remotely. Eliseo Alvarez is a 39 year old male who presents for initial diet instructions. Referring Medical diagnosis: Hyperlipidemia. Recent weight change: patient has not been weighed since February. He said he does not feel that he has lost weight, but also has not gained. Estimated energy needs based on weight in February of 317 lbs: 2000 MADAI.Diet history, food frequency assessment and/or 24-hour recall completed. Started eating breakfast and lunch this year. Before he was drinking black coffee all day and would have one meal a day. Patient has been working on eating three smaller meals a day. Reading food labels and working on increasing protein. Current diet: Breakfast: Overnight Oats or Breakfast Burritos OR Coffee (black) and One Energy Drink (SF Ghost) Lunch:[place] Wraps, Pasta Salad (High Protein), Water, Veggies Dinner: Rice and Chicken, OR [place] Sausage, Home Raised Beef with pasta or rice and vegetable Eating Out- Once a week- Pizza Hydration: Diet Soda (one a day) Snacking: more on the weekends (popcorn, chips) Weekends: Alcohol (Beer) more in the summer/warmer months (1-2 cans every other week) No apparent barriers to education identified. Current Outpatient Medications Medication Sig Dispense Refill sertraline (ZOLOFT) 100 mg tablet Take 1 tablet by mouth once daily. 90 tablet 3 No current facility-administered medications for this visit. LABS: HgA1C: 4.6 (09/26/2024) Cholesterol, Total (mg/dL) Date Value 09/26/2024 236 03/15/2024 256 Total Cholesterol, Nonfasting (mg/dL) Date Value 03/08/2021 222 HDL Cholesterol (mg/dL) Date Value 09/26/2024 44 03/15/2024 45 HDL Cholesterol, Nonfasting (mg/dL) Date Value 03/08/2021 57 LDL Cholesterol (mg/dL) Date Value 09/26/2024 158 03/15/2024 170 LDL Cholesterol, Nonfasting (mg/dL) Date Value 03/08/2021 152 Triglyceride (mg/dL) Date Value 09/26/2024 170 03/15/2024 207 Triglycerides, Nonfasting (mg/dL) Date Value 03/08/2021 66 Lab Value Units Date High Low ALB No results within date range. CREAT No results within date range. BUN No results within date range. GLUC No results within date range. DIAGNOSIS: Altered nutrition related lab values related to Hyperlipidemia evidenced by elevated TC (236) and LDL (158). INTERVENTION- Nutrition education on nutrition relationship to health. Reviewed and provided: Fats and Fiber to Help Lower Cholesterol, Guide to Fish Oils and Healthy Eating to Lower Cholesterol. Patient stated he has excellent family and friend support. Patient had good participation with conversation. Expect good compliance. MONITORING AND EVALUATION: No follow up scheduled at this time. Patient will reach out through My Chart with additional concerns and questions. 45 Minutes of Medical Nutrition Therapy provided. Zoey Botello RD documented in this encounter [facility] 08-26-2024 Telephone encounter Note The following approved medication requests have been transmitted electronically. Requested Prescriptions Pending Prescriptions Disp Refills sertraline (ZOLOFT) 100 mg tablet 90 tablet 3 Sig: Take 1 tablet by mouth once daily. Sammy Parker APRN.CNP [facility] 08-26-2024 Miscellaneous Notes The following approved medication requests have been transmitted electronically. Requested Prescriptions Pending Prescriptions Disp Refills sertraline (ZOLOFT) 100 mg tablet 90 tablet 3 Sig: Take 1 tablet by mouth once daily. Sammy Parker APRN.CNP Prescription Refill Information The patient has been identified by name and date of : Yes Caregiver verified no other encounters exist for this prescription request: Yes Caregiver confirmed with patient/requestor that no other refills are due, in the near future, with this provider at this time: Yes The last office visit in the department: 03/15/24 Does the patient have a future office visit with this provider/department: No Yearly due February 2025 Requested Prescriptions Pending Prescriptions Disp Refills sertraline (ZOLOFT) 100 mg tablet 90 tablet 3 Sig: Take 1 tablet by mouth once daily. Sera Dickerson LPN August 26, 2024 8:58 AM documented in this encounter [facility] 08-26-2024 Telephone encounter Note Prescription Refill Information The patient has been identified by name and date of : Yes Caregiver verified no other encounters exist for this prescription request: Yes Caregiver confirmed with patient/requestor that no other refills are due, in the near future, with this provider at this time: Yes The last office visit in the department: 03/15/24 Does the patient have a future office visit with this provider/department: No Yearly due February 2025 Requested Prescriptions Pending Prescriptions Disp Refills sertraline (ZOLOFT) 100 mg tablet 90 tablet 3 Sig: Take 1 tablet by mouth once daily. Sera Dickerson LPN August 26, 2024 8:58 AM [facility] 05-08-2024 History of Presen t illness Narrative [facility] Initial Clinic Visit Note Virtual Visit (Audio/Visual)"I have discussed the nature of this visit with the patient which will occur via [facility] (Phone, Virtual Visit) and he agrees to proceed with this interaction". I have communicated my name and active licensure. The patient's identity and physical location were verified at the time of this visit. Either the patient or their legal senior patient account representative has been informed of the risks and benefits of -- and alternatives to -- treatment through a remote evaluation and consents to proceed with the evaluation remotely. Referred by: Sammy Parker APRN. VETERINARY INSPECTOR PCP: Burt Ramos MD Chief complaint: low testosterone levels History of present illness: Mr. Alvarez is a 38 year old male here today at the request of his PCP team for evaluation of low serum Testosterone levels. He reports he just got in for yearly check up. And because he was not able to lose weight, his thyroid and testosterone levels were checked and were found to be low. He was gaining weight since COVID- 50-60 lbs Exercise: weight lifting 4 days a week, and walking every day since 3 weeks. He works as a clinical instructor for nursing students. Fatigue: wakes up okay but mid-day he has to take coffee, and gets tired at the end of the day He feels better after exercise He has normal libido, no issues with erection or ejaculation Denied any testicular trauma, infections like mumps, testicular swelling, surgery, pelvic radiation He denied head trauma, pituitary surgery, brain infection, head radiation. Has intermittent snoring , not significant as reported No hx of fractures, changes in body hair, size or consistency of testicles. Denied gynecomastia, headaches, vision changes He has one child, 5 years old. He denied any previous use of anabolic steroids, glucocorticoids, ketoconazole, opioids, chemotherapy in the past PAST MEDICAL HISTORY Diagnosis Date Childhood asthma without complication grew out of it PAST SURGICAL HISTORY Procedure Laterality Date NONE Current Outpatient Medications on File Prior to Visit Medication Sig sertraline (ZOLOFT) 100 mg tablet Take 1 tablet by mouth once daily. No current facility-administered medications on file prior to visit. ALLERGIES Allergen Reactions Peanut Itching FAMILY HISTORY Problem Relation Age of Onset Hypothyroidism Mother Depression Father Psoriasis Brother Alzheimer's Disease Maternal Grandmother Pancreatic Cancer Maternal Grandfather Lung Cancer Paternal Grandfather Vitals: Physical Exam: deferred DATA REVIEW: Labs: Latest Ref Rng 03/08/2021 03/15/2024 Protein, Total 6.3 - 8.0 g/dL 7.4 Albumin 3.9 - 4.9 g/dL 4.6 Calcium 8.5 - 10.2 mg/dL 9.8 Bilirubin, Total 0.2 - 1.3 mg/dL 0.3 Alkaline Phosphatase 38 - 113 U/L 93 AST 14 - 40 U/L 23 ALT 10 - 54 U/L 29 Glucose 74 - 99 mg/dL 106 (H) BUN 9 - 24 mg/dL 15 Creatinine 0.73 - 1.22 mg/dL 1.02 Sodium 136 - 144 mmol/L 139 Potassium 3.7 - 5.1 mmol/L 4.4 Chloride 98 - 107 mmol/L 103 CO2 22 - 30 mmol/L 24 Anion Gap 8 - 15 mmol/L 12 eGFR >=60 mL/min/1.73m 96 Cholesterol, Total <200 mg/dL 256 (H) Triglyceride <150 mg/dL 207 (H) HDL Cholesterol >39 mg/dL 45 Non HDL Cholesterol <130 mg/dL 211 (H) Fasting Time hrs 12 VLDL Cholesterol <30 mg/dL 41 (H) TC:HDL Ratio <5.10 5.69 (H) LDL Cholesterol <100 mg/dL 170 (H) LDL:HDL Ratio <2.54 3.78 (H) Testosterone 240 - 950 ng/dL 234 (L) 177 (L) Testosterone Free 4.65 - 18.1 ng/dL 9.59 7.08 Legend: (L) Low (H) High Assessment and Plan: In summary, Eliseo Alvarez is a 38 year old male who presents for evaluation of hypogonadism. Hypogonadism in male - he is clinically eugonadal with low total testosterone level, with normal free Testosterone levels -total testosterone likely lowered by low SHBG in setting of obesity -most likely low total T is due to low SHBG, likely cause being obesity with BMI 48.6 I educated the patient in regards to the testosterone pool, containing free, albumin-bound and sex hormone binding testosterone levels in few conditions and medications that could affect/alter SHBG levels contributing to affect on total testosterone levels. -d/w him that I would recommend continued diet/exercise for weight loss along with weight management referral if interested, along with reducing EtOH intake, as improving these factors can improve an already normal testosterone level like in his case. And that TRT is not indicated Patient verbalized understanding and agrees with the plan. He asks if he can have his PCP check another T level along with cholesterol and hba1c ordered for in 08/2024. Advised this could depend on his overall weight loss, and could do if he was able to lose significant weight loss by then, to show effect of the hormonal levels Follow up : PRN Thank you for allowing me to participate in the care of Eliseo Alvarez. Please contact me with any questions or concerns. Medical Decision Making: Problems: Moderate: New problem with uncertain prognosis Data: Unique test result(s) reviewed: 3+ Independent interpretation of test from other physician/QHCP Medical Decision Making Level: 4 - Moderate María Byrne MD May 08, 2024 10:11 AM documented in this encounter [facility] 03-15-2024 History of Presen t illness Narrative Chief Complaint Patient presents with: Yearly Exam HPI Eliseo Alvarez is a 38 year old male who presents here today for physical. Anxiety, depression: On zoloft, doing well overall. Hst of low testosterone. Repeat was not completed a few years back. Still having fatigue at times. No exercise plan. No particular diet. Past medical history, appointments, medications, allergies reviewed. [...] mouth once daily. No current facility-administered medications on file prior to visit. Social History Social History Tobacco Use Smoking status: Never Smokeless tobacco: Never Vaping Use Vaping Use: Never used Substance Use Topics Alcohol use: Yes Comment: 3-4 beers per week Drug use: Not Currently Review of Symptoms REVIEW OF SYSTEMS PAIN ASSESSMENT: Negative for pain, history of chronic pain, or current treatment for a chronic pain condition. GENERAL: No weight loss, malaise or fevers HEENT: Negative for frequent or significant headaches, No changes in hearing or vision, no nose bleeds or other nasal problems NECK: Negative for lumps, goiter, pain and significant neck swelling RESPIRATORY: Negative for cough, hemoptysis, wheezing, COPD, dyspnea or shortness of breath CARDIOVASCULAR: Negative for chest pain, leg swelling, hypertension, CHF or palpitations GI: No nausea, vomiting, or diarrhea : No history of dysuria, frequency or incontinence MUSCULOSKELETAL: Negative for joint pain or swelling, back pain or muscle pain PSYCH: See HPI HEMATOLOGY/LYMPHOLOGY: Negative for prolonged bleeding, bruising easily or swollen nodes ENDOCRINE: Negative for cold or heat intolerance, polyuria, polydipsia and goiter NEURO: No history of headaches, syncope, paralysis, seizures or tremors EXAM: BP 136/86 Pulse 85 Resp 18 Ht 172 cm (5' 7.72") Wt (!) 143.8 kg (317 lb) SpO2 98% BMI 48.60 kg/m General Appearance: Well appearing, alert, in no acute distress, well-hydrated, well nourished. and Morbidly obese. Head: Normocephalic, no masses, lesions, tenderness or abnormalities. Eyes: Anicteric sclera. Pupils are equally round and reactive to light. Extraocular movements are intact. . Ears: External ears normal, canals clear. Nose/Sinuses: Nares normal, septum midline, mucosa normal, no drainage or sinus tenderness. Oropharynx: Lips, mucosa, and tongue normal, teeth and gums normal, oropharynx normal. Neck: Supple, no adenopathy; thyroid symmetric, normal size Lungs: Lungs clear to auscultation. No wheezing, rhonchi, rales.. Heart: RRR without murmur, gallop, or rubs. No ectopy. Abdomen: Normal abdominal exam, Abdomen soft, non-tender. Bowel sounds normal. No masses, organomegaly. Musculoskeletal: No joint swelling, deformity, or tenderness. Lymph Nodes: No cervical lymphadenopathy and No supraclavicular lymphadenopathy. Health Maintenance List Depression Screening Never done Anxiety Screening Never done DTaP,Tdap,Td Vaccine(3 - Td or Tdap) due on 03/07/2024 Covid-19 Vaccine(4 - season) due on 03/15/2025 Influenza Vaccine(1) due on 04/21/2024 Lipid Screening due on 03/08/2026 Hepatitis B Vaccine Completed HPV Vaccine Aged Out Hepatitis C Screening Discontinued HIV Screening Discontinued ASSESSMENT/PLAN: 1. Wellness examination - ICD9: V70.0, ICD10: Z00.00 (primary diagnosis) - Counseled on healthy diet and regular exercise - Discussed need for and benefit of weight loss. BMI 48.60 kg/(m^2) - Patient was counseled [id number] by myself (the billing provider) for the following immunizations and vaccine components, including side effects: TdaP. Patient consents for immunization and understands risks and benefits. A VIS sheet on each immunization was given to the patient. - Follow up for annual exam in one year - LIPID PANEL BASIC - COMPREHENSIVE METABOLIC PANEL 2. Screening for depression - ICD9: V79.0, ICD10: Z13.31 - continue zoloft - DEPRESSION SCREENING 3. Encounter for screening examination for other mental health and behavioral disorders - ICD9: V79.8, ICD10: Z13.39 - ANXIETY SCREENING 4. Encounter for immunization - ICD9: V03.89, ICD10: Z23 - TDAP VACCINE, AGE 7+ YR (ADACEL, BOOSTRIX) 5. Fatigue, unspecified type - ICD9: 780.79, ICD10: R53.83 - Recheck Test, low in the past - TESTOSTERONE, FREE AND TOTAL - COMPLETE BLOOD COUNT AND DIFFERENTIAL 6. Class 3 severe obesity with body mass index (BMI) of 45.0 to 49.9 in adult, unspecified obesity type, unspecified whether serious comorbidity present (HCC) - ICD9: 278.01, V85.42, ICD10: E66.01, Z68.42 Weight increasing - Behavioral intervention 7. Screening for tuberculosis - ICD9: V74.1, ICD10: Z11.1 - BLOOD TB SCREEN Sammy Parker APRN.VETERINARY INSPECTOR RTO in 12 months, sooner if needed. This note was partly generated using Dragon voice recognition dictation and may contain some misspelled or inaccurate words missed on review. documented [facility] [facility] 03-15-2024 Instructions Sammy Parker APRN.CNP - 03/15/2024 8:18 AM EDT For diet, please focus on: - More lean meats like chicken, fish, turkey rather than red meats - Less carbs and when having carbs, more complex carbs such as beans, wheat or multigrain and brown rice - more vegetables - health fats such as olive oil, nuts, avocados For exercise: Please try and aim for a goal of 30 min a day most days of the week with a goal of 150min/wk. Brisk walking is plenty, if you can increase it later, then that is good, but if you are going from little or no exercise to this new routine, I do not want you to go too extreme. If you already exercise, I encourage you to try and do a little more than what you have been doing. Sammy Parker APRN.CEHRY documented in this encounter [facility] 08-17-2023 Discharge summary Note Date/Time August 17, 2023 12:35am [facility] Medical Records Department [address] [place] [id number] Emergency Department Summary 08/17/23 MR#: [id number] Acct: [id number] Name: ELISEO ALVAREZ Rep #:[id number] : 1985 37 From: David Saunders DO PCP: Dr. Burt Ramos MD Status:RE G ER Location: ED HPI History of Present Illness Chief Complaint: Chest Pain Narrative Narrative: 37-year-old presenting with chest pain/epigastric pain. Started at 10 PM which was a couple of hours ago. Patient states it feels like it is burning and it radiates up into his esophagus. He states he noted it radiated to his left jaw as well. No dizziness, lightheadedness, nausea, vomiting. No chest pressure orpleuritic chest pain. No fevers or chills. Patient admits that he had some salsa just prior to this. He also earlier ate a chicken wrap with hot sauce on it. Patient denies history of GERD although he did take some Tums and this did help the pain. Patient denies any cardiac history. He is non-smoker. [facility] Medical History Anxiety Asthma Depression Home Medications sertraline 100 mg tablet 100 mg PO DAILY 08/16/23 [History Last Taken Unknown] omeprazole 20 mg capsule,delayed release 20 mg PO DAILY #30 CAPSULES 08/17/23 [Rx Last Taken Unknown] Allergy/AdvReac Type Severity Reaction Status Date / Time nut - unspecified [nuts] Allergy Other Verified 08/16/23 23:42 Social History Smoking Status: Never smoker ROS ROS ED Constitutional Constitutional ED: Denies chills, fever(s) or sweats Eyes Eyes: Denies blurry vision or change in vision ENT ENT ED: Denies ear pain or sore throat Cardiovascular Cardiovascular: Reports as per HPI; Denies chest pain, palpitations or racing heartbeat Respiratory/Chest Respiratory/Chest: Denies cough, dyspnea or sputum Gastrointestinal Gastrointestinal: Reports other Details: Epigastric pain, dyspepsia ; Denies abdominal pain, constipation, diarrhea, nausea or vomiting Genitourinary Genitourinary ED: Denies dysuria, hematuria or urinary frequency Musculoskeletal Musculoskeletal: Denies arthralgias, myalgias or neck pain Integumentary Denies abscess, Abrasions or rash Neurologic Neurologic: Denies headache(s), paresthesias or weakness Psychiatric Psychiatric: Denies anxiety, depression, suicidal ideation or suicidal thoughts Endocrine Endocrinology: Denies polydipsia or polyuria EXAM Physical Exam Const Vital Signs: 08/16/23 23:41 08/16/23 23:45 08/16/23 23:56 Temperature 97.6 F L Temperature Source Temporal Pulse Rate 93 Respiratory Rate 20 H Respiratory Effort Normal Respiratory Pattern Normal Blood Pressure 201/120 H Blood Pressure Mean 147 Pulse Ox 94 Oxygen Delivery Method Room Air Room Air 08/17/23 00:05 08/17/23 00:14 08/17/23 00:15 Temperature Temperature Source Pulse Rate 81 79 76 Respiratory Rate 16 13 12 Respiratory Effort Respiratory Pattern Blood Pressure 142/90 H 178/110 H Blood Pressure Mean 107 122 Pulse Ox 97 96 96 Oxygen Delivery Method Room Air 08/17/23 00:20 08/17/23 00:27 08/17/23 00:30 Temperature Temperature Source Pulse Rate 75 88 79 Respiratory Rate 12 17 16 Respiratory Effort Respiratory Pattern Blood Pressure 168/109 H 160/105 H Blood Pressure Mean 124 123 Pulse Ox 97 94 94 Oxygen Delivery Method 08/17/23 00:40 08/17/23 00:50 08/17/23 01:00 Temperature Temperature Source Pulse Rate 77 81 86 Respiratory Rate 15 17 15 Respiratory Effort Respiratory Pattern Blood Pressure 165/108 H 167/105 H 177/117 H Blood Pressure Mean 125 120 132 Pulse Ox 95 94 96 Oxygen Delivery Method 08/17/23 01:10 08/17/23 01:20 08/17/23 01:30 Temperature Temperature Source Pulse Rate 84 78 77 Respiratory Rate 14 15 15 Respiratory Effort Respiratory Pattern Blood Pressure 159/112 H 176/106 H 172/109 H Blood Pressure Mean 128 122 124 Pulse Ox 94 94 92 Oxygen Delivery Method 08/17/23 01:40 08/17/23 01:50 08/17/23 01:50 Temperature Temperature Source Pulse Rate 96 73 73 Respiratory Rate 20 H 13 13 Respiratory Effort Respiratory Pattern Blood Pressure 139/76 H 140/95 H Blood Pressure Mean 97 108 Pulse Ox 93 Oxygen Delivery Method Room Air 08/17/23 02:00 08/17/23 02:10 08/17/23 02:20 Temperature Temperature Source Pulse Rate 78 83 84 Respiratory Rate 15 15 14 Respiratory Effort Respiratory Pattern Blood Pressure 153/97 H 158/99 H 165/110 H Blood Pressure Mean 106 118 128 Pulse Ox 94 95 Oxygen Delivery Method Room Air 08/17/23 02:30 08/17/23 02:40 08/17/23 02:50 Temperature Temperature Source Pulse Rate 82 73 79 Respiratory Rate 9 L 17 11 L Respiratory Effort Respiratory Pattern Blood Pressure 128/84 H 156/98 H 143/90 H Blood Pressure Mean 98 112 105 Pulse Ox 94 95 95 Oxygen Delivery Method 08/17/23 03:00 08/17/23 03:10 Temperature Temperature Source Pulse Rate 69 73 Respiratory Rate 10 L 11 L Respiratory Effort Respiratory Pattern Blood Pressure 142/96 H 146/98 H Blood Pressure Mean 109 110 Pulse Ox 95 93 Oxygen Delivery Method Room Air Positive well nourished and obese General Appearance ED: NAD Nutritional Appearance: obese HEENT Reports moist mucous membranes Eyes PERRL and EOMs intact bilaterally Chest Wall inspection of chest normal Resp normal respiratory effort and clear to auscultation bilaterally Auscultation: Negative for rales, rhonchi or wheezes Cardio regular rate and regular rhythm Neuro oriented x3 and CN's II-XII intact bilaterally Sensorium / Orientation: awake and alert Psych mental status grossly normal Skin no rashes or lesions noted Heart Score History: Slightly/Non-Suspicious ECG: Normal Age: </= 45 years Risk Factors: 1 or 2 Risk Factors Troponin: </= Normal Limit Score: 1 MDM MDM MDM Narrative Medical decision making narrative: 37-year-old male with chest pain/epigastric pain. He states he feels like he is having acid reflux. He ate some salsa prior to coming in and having episode as well as a wrap with hot sauce on it. Denies history of acid reflux. No cardiac history. Differential includes ACS, pneumonia, GERD, gastritis, dehydration, electrolyte imbalance. Considered PE however patient is PERC negative. Did consider dissection however patient is not having ripping or tearing pain. I offered the patient a GI cocktail as he sounds like he is having acid reflux symptoms and he was amenable to this. He states he had 1 in the past. CBC, BMP unremarkable. High-sensitivity troponin is 4. EKG on my interpretation shows a normal sinus rhythm at a ventricular rate of 87 bpm without sign of ischemic change or dysrhythmia. Chest x-ray my interpretation is no acute process. Delta troponin is 5. Patient reports he feels much better after GI cocktail. Given negative workup and improvement with GI cocktail patient is on omeprazole. To be discharged home to follow-up with his PCP. Impression: 1. Chest pain 2. Gastritis Lab Data Attestation: I reviewed the patient's lab results. Labs: Laboratory Results - last 24 hr 08/16/23 08/17/23 23:56 02:41 WBC 8.4 RBC 5.58 Hgb 15.7 Hct 45.8 MCV 82.1 MCH 28.1 MCHC 34.3 RDW Std Deviation 38.6 RDW Coeff of Rachel 13.0 Plt Count 326 MPV 8.7 Immature Gran % (Auto) 0.800 Neut % (Auto) 54.0 Lymph % (Auto) 34.8 Lea % (Auto) 5.5 Eos % (Auto) 4.4 Baso % (Auto) 0.5 Absolute Neuts (auto) 4.5 Absolute Lymphs (auto) 2.92 Nucleated RBC % 0 Sodium 137 Potassium 3.8 Chloride 105 Carbon Dioxide 26.0 Anion Gap 6 BUN 17 Creatinine 1.07 Estim Creat Clear Calc 88.37 Est GFR (MDRD) Af Amer 100 Est GFR (MDRD) Non-Af 82 BUN/Creatinine Ratio 15.9 Glucose 145 H Calcium 8.8 Troponin I High Sens 4 5 Radiography Diagnostic Testing: Clinical Impression(s) from Imaging Studies Chest X-Ray 08/16/23 00:04 IMPRESSION: No evidence of cardiopulmonary disease. Electronically Signed: Phi Basurto DO at 0:38 EST , Discharge Plan Triage Chief Complaint: Chest Pain ED Provider: David Saunders Dx/Rx/DC Orders Instructions: ED Gastritis (Adult), ED Chest Pain, Noncardiac (Child) Prescriptions: New omeprazole 20 mg capsule,delayed release(DR/EC) 20 mg PO DAILY Qty: 30 0RF No Action sertraline 100 mg tablet 100 mg PO DAILY Patient Comments: TAKE 1 TABLET BY MOUTH EVERY DAY Primary Care Provider: Burt Ramos Referrals: Burt Ramos MD [Primary Care Provider] - Disposition Disposition: Home, Self Care What to do if you have Problems For any increased pain, shortness of breath, bleeding, nausea or vomiting, chestpain, or any unexpected problems, contact your Primary Care Provider. Call [facility] ([phone]) or report to the closest Emergency Room. Call 911 if necessary. 08/17/23316 <Electronically signed by David Saunders DO> Cosigner Signature (if applicable): CC: Dr. Burt Ramos MD ~ Signed [facility] Work Phone: [phone] 159-342706-08-2023 NoteHNO ID: [id number] Author: LANETTE Sandhu Service: Radiology Author Type: Technologist Type: Progress [...] BY: LANETTE Sandhu January 26, 2023 1:24 PMMercer County [facility] [id number] History of Present illness Narrative* Meena Cyr CT - 01/26/2023 1:30 PM EDT Radiology Service Progress Note PATIENT NAME: Eliseo Alvarez DATE OF SERVICE: January 26, 2023 TIME: 1:24 PM PATIENT IDENTITY VERIFICATION COMPLETED USING TWO (2) IDENTIFIERS: Name and Date of confirmedby patient verbally and Name and Date of confirmed by identification band. FALL SCREENING: Has the patient had 2 falls in the last year or 1 fall with injury or currently using an Ambulatory Assistive Device (Walker, Cane, Wheelchair, Crutches, etc.)? No PATIENT GENDER DATA: Male PATIENT RELEVANT IMPLANT DATA REVIEWED: Not Applicable RADIOLOGY DEPARTMENT: General X-ray: Exam(s) Completed: Lower Extremity X- Ray(s): Knee, AP / Lat / Tunne / Merchant Left PERIPHERAL IV DATA: Not applicable SIGNED BY: LANETTE Sandhu January 26, 2023 1:24 PM documented in this encounterUniversity [facility] History of Present illness Narrative* Monae Alonzo - 12/23/2022 4:45 PM EDT POPULATION HEALTH NAVIGATION OUTREACH Action/FYI Left vm Patient Identified by Name and : NO Outreach Outcome/Action Unable to reach patient: Left message MyChart message sent Did you use a PCP [...] 10/27/2021 DEPRESSION ASSESSMENT Never done Navigation Signature: Monae Alonzo December 23, 2022 4:45 PM documented in this encounterUniversity Hospitals [facility]05-[facility]23 Miscellaneous Notes* Telephone Encounter - Ange Urias MA - 12/23/2022 10:15 AM EDT Patient active MyChart. Patient notified via [employer] message. Ange Urias MA * Telephone Encounter - Sammy Parker APRN.CNP - 12/23/2022 7:32 AM EDT Please let the patient know that the ultrasound of his left leg shows no DVT. 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 I referred him to orthopedics. Sometimes they will offer joint injection and or drainage for treatment. Sammy Parker APRN.CNP documented in this encounterUniversity [facility]als [facility]01-[facility] Miscellaneous Notes* Telephone Encounter - Sammy Parker APRN.CNP - 08/23/2022 11:40 AM EST The following approved medication requests have been transmitted electronically. Requested Prescriptions Pending Prescriptions Disp Refills sertraline (ZOLOFT) 100 mg tablet 90 tablet 3 Sig: Take 1 tablet by mouth once daily. Sammy aPrker APRN.CNP * Telephone Encounter - Alejandra Parmar Ma - 08/23/2022 11:38 AM EST Last office visit: 12/21/21 F/u scheduled: none Alejandra Parmar Ma documented in this encounterUniversity [facility]als [facility]10-04-[facility]22 Miscellaneous Notes* Telephone Encounter - Sammy Parker APRN.CNP - 05/24/2022 9:14 AM EDT The following approved medication requests have been transmitted electronically. Requested Prescriptions Pending Prescriptions Disp Refills sertraline (ZOLOFT) 100 mg tablet 90 tablet 3 Sig: Take 1 tablet by mouth once daily. Sammy Parker APRN.CNP * Telephone Encounter - Zehra Stanley LPN - 05/24/2022 8:12 AM EDT Patient has been identified by name and [...] you. Zehra Stanley LPN documented in this encounterUniversity Hospitals [facility]05-03-[facility]22 History of Present illness Narrative* Sammy Parker APRN.CNP - 12/21/2021 2:00 PM EDT Chief Complaint Patient presents with: Ear Infection HPI Eliseo Alvarez is a 36 year old male who presents here today for above complaints. Patient here for follow-up from urgent care. Was there for bilateral acute otitis media. Treated with Augmentin. States that ear pain has resolved. Muffled hearing has resolved. Ongoing "crackling, popping" of the ear when blowing nose or opening and closing jaw. He has seasonal allergies that havebeen worse lately also. Using otc antihistamine. Past [...] per nostril. Continue with otc allergy care. Sammy Parker APRN.CHERY This note was partly generated using Qonf voice recognition dictation and may contain some misspelled or inaccurate words missed on review. [facility] Diagnosis Eustachian tube dysfunction, bilateral- Primary documented in this encounter [facility] note* Diagnosis Mckeon's cyst of knee, left- Primary documented in this encounter [facility] noteNo assessment information availableWTrinity Health System Work Phone: Evaluation note* Diagnosis Wellness examination- Primary Screening for depression Encounter for screening examination for other mental health and behavioral disorders Encounter for immunization Need for other specified prophylactic vaccination against single bacterial disease Fatigue, unspecified type Class 3 severe obesity with body mass index (BMI) of 45.0 to 49.9 in adult, unspecified obesity type, unspecified whether serious comorbidity present (HCC) Screening for tuberculosis Screening examination for pulmonary tuberculosis documented in this encounter [facility] note* Diagnosis Hyperlipidemia, unspecified hyperlipidemia type- Primary Elevated glucose Other abnormal glucose documented in this encounter [facility] note* Diagnosis Hypogonadism in male- Primary documented in this encounter [facility] note* Diagnosis Hypogonadism in male documented in this encounter [facility] note* Diagnosis Pain Generalized pain documented in this encounter [facility] note* Diagnosis Hyperlipidemia, unspecified hyperlipidemia type- Primary documented in this encounter [facility] note* Diagnosis Hyperlipidemia, unspecified hyperlipidemia type documented in this encounter [facility] note* Diagnosis Hypogonadism in male- Primary documented in this encounter [facility] for referral (narrative)* Diagnostic Procedure Only (Routine) - Closed Specialty Diagnoses / Procedures Referred By Contac t Referred To Contact XR IMAGING Diagnoses Pain Procedures XR KNEE GENERAL 4V AP BOTH/PA BOTH/LAT/MERC LEFT RADIOLOGIC EXAM KNEE COMPLETE 4/MORE VIEWS Yeny Zarate PA-C [address] [place] [address] [place] [address] Referral ID Status Reason Start Date Expiration Date V isits Requested Visits Authorized [id number] Closed Auto-Generate d Referral 12/26/2022 01/25/2024 1 1 [facility] for visit Narrative* Diagnostic Procedure Only (Routine) - Closed Specialty Diagnoses / Procedures Referred By Contac t Referred To Contact XR IMAGING Diagnoses Pain Procedures XR KNEE GENERAL 4V AP BOTH/PA BOTH/LAT/MERC LEFT RADIOLOGIC EXAM KNEE COMPLETE 4/MORE VIEWS Yeny Zarate PA-C [address] [place] [address] [place] [address] Referral ID Status Reason Start Date Expiration Date V isits Requested Visits Authorized [id number] Closed Auto-Generate d Referral 12/26/2022 01/25/2024 1 1 [facility] Reason for Referral Specialty Diagnoses / Procedures Referred By Contac t Referred To Contact Orthopedics Diagnoses Mckeon's cyst of knee, left Procedures CONSULT TO ORTHOPAEDICS OFFICE/OUTPATIENT [facility] MDM 60-74 MINUTES Sammy Parker, TISH.VETERINARY INSPECTOR [address] [place] [address] Referral ID Status Reason Start Date Expiration Date Visits Requested Visits Authorized [id number] Authorized PCP Requested Referral 12/23/2022 12/23/2023 1 1 Specialty Diagnoses / Procedures Referred By Contac t Referred To Contact Endocrinology Diagnoses Hypogonadism in male Procedures CONSULT TO ENDOCRINOLOGY OFFICE/OUTPATIENT [facility] MDM 60 MINUTES Sammy Parker, TISH.VETERINARY INSPECTOR [address] [place] [address] Referral ID Status Reason Start Date Expiration Date Visits Requested Visits Authorized [id number] Authorized PCP Requested Referral 04/01/2024 04/01/2025 1 1 Specialty Diagnoses / Procedures Referred By Contac t Referred To Contact Nutrition Diagnoses Hyperlipidemia, unspecified hyperlipidemia type Procedures CONSULT TO NUTRITION THERAPY MEDICAL NUTRITION ASSMT&IVNTJ INDIV EACH 15 Sammy Whiteside APRN.VETERINARY INSPECTOR [address] [facility] [place] [address] Referral ID Status Reason Start Date Expiration Date Visits Requested Visits Authorized [id number] Authorized PCP Requested Referral 09/27/2024 09/27/2025 1 4 Summary Purpose Family History No Family History Records FoundNo Family History Records FoundNo Family History Records FoundNo Family History Records Found Advance Directives No Advanced Directives Records Found Advance Directive Response Recorded Date/ Time Living Will No August 16 023 11:56pm Power of Supervisor Accounting Clerks No August 16, 2023 11:56pm Chief Complaint and Reason for Visit Chief Complaint CP Additional Source Comments Source Comments (unrecognize d section and content) In the event this informatio n is protected by the Federal Confidentiality of Alcohol and Drug Abuse Patient Records regulations: The Federal rules restrict any use of the information to criminally investigate or prosecute any alcohol or drug abuse patient.[facility] CenterIn the event this information is protected by the Federal Confidentiality of Alcohol and Drug Abuse Patient Records regulations: The Federal rules restrict any use of the information to criminally investigate or prosecute any alcohol or drug abuse patient.[facility] CenterIn the event this information is protected by the Federal Confidentiality of Alcohol and Drug Abuse Patient Records regulations: The Federal rules restrict any use of the information to criminally investigate or prosecute any alcohol or drug abuse patient.[facility] CenterIn the event this information is protected by the Federal Confidentiality of Alcohol and Drug Abuse Patient Records regulations: The Federal rules restrict any use of the information to criminally investigate or prosecute any alcohol or drug abuse patient.[facility] CenterIn the event this information is protected by the Federal Confidentiality of Alcohol and Drug Abuse Patient Records regulations: The Federal rules restrict any use of the information to criminally investigate or prosecute any alcohol or drug abuse patient.[facility] CenterIn the event this information is protected by the Federal Confidentiality of Alcohol and Drug Abuse Patient Records regulations: The Federal rules restrict any use of the information to criminally investigate or prosecute any alcohol or drug abuse patient.[facility] CenterIn the event this information is protected by the Federal Confidentiality of Alcohol and Drug Abuse Patient Records regulations: The Federal rules restrict any use of the information to criminally investigate or prosecute any alcohol or drug abuse patient.[facility] CenterIn the event this information is protected by the Federal Confidentiality of Alcohol and Drug Abuse Patient Records regulations: The Federal rules restrict any use of the information to criminally investigate or prosecute any alcohol or drug abuse patient.[facility] CenterIn the event this information is protected by the Federal Confidentiality of Alcohol and Drug Abuse Patient Records regulations: The Federal rules restrict any use of the information to criminally investigate or prosecute any alcohol or drug abuse patient.[facility] CenterIn the event this information is protected by the Federal Confidentiality of Alcohol and Drug Abuse Patient Records regulations: The Federal rules restrict any use of the information to criminally investigate or prosecute any alcohol or drug abuse patient.[facility] CenterIn the event this information is protected by the Federal Confidentiality of Alcohol and Drug Abuse Patient Records regulations: The Federal rules restrict any use of the information to criminally investigate or prosecute any alcohol or drug abuse patient.[facility] CenterIn the event this information is protected by the Federal Confidentiality of Alcohol and Drug Abuse Patient Records regulations: The Federal rules restrict any use of the information to criminally investigate or prosecute any alcohol or drug abuse patient.[facility] CenterIn the event this information is protected by the Federal Confidentiality of Alcohol and Drug Abuse Patient Records regulations: The Federal rules restrict any use of the information to criminally investigate or prosecute any alcohol or drug abuse patient.[facility] CenterIn the event this information is protected by the Federal Confidentiality of Alcohol and Drug Abuse Patient Records regulations: The Federal rules restrict any use of the information to criminally investigate or prosecute any alcohol or drug abuse patient.[facility] CenterIn the event this information is protected by the Federal Confidentiality of Alcohol and Drug Abuse Patient Records regulations: The Federal rules restrict any use of the information to criminally investigate or prosecute any alcohol or drug abuse patient.[facility] Care Teams (unrecognized sec tion and content) Cardiologist Relationship Specialty Start Date End Date Burt Ramos MD [address] [place] [address] PCP - General Family Practice 03/08/21 Cardiologist Relationship Specialty Start Date End Date Burt Ramos MD [address] [place] [address] PCP - General Family Practice 03/08/21 Cardiologist Relationship Specialty Start Date End Date Burt Ramos MD [address] [place] [address] PCP - General Family Medicine 03/08/21 Cardiologist Relationship Specialty Start Date End Date Burt Ramos MD [address] [place] [address] PCP - General Family Medicine 03/08/21 Cardiologist Relationship Specialty Start Date End Date Burt Ramos MD [address] [place] [address] PCP - General Family Medicine 03/08/21 Cardiologist Relationship Specialty Start Date End Date Burt Ramos MD [address] [place] [address] PCP - General Family Medicine 03/08/21 Team Status: Active Member Role Status Dates Dr. Albert Davison MD Family Provider Active Dr. Burt Ramos MD Primary Care Provider Active Team Status: Inactive Member Role Status Dates Dr. Burt Ramos MD Primary Care Provider Active Dr. David Saunders DO Emergency Provider Active Cardiologist Relationship Specialty Start Date End Date Burt Ramos MD [address] [place] [address] PCP - General Family Medicine 03/08/21 Cardiologist Relationship Specialty Start Date End Date Burt Ramos MD [address] [place] [address] PCP - General Family Medicine 03/08/21 Cardiologist Relationship Specialty Start Date End Date Burt Ramos MD [address] [place] [address] PCP - General Family Medicine 03/08/21 Cardiologist Relationship Specialty Start Date End Date Burt Ramos MD [address] [place] [address] PCP - General Family Medicine 03/08/21 Cardiologist Relationship Specialty Start Date End Date Burt Ramos MD [address] [place] [address] PCP - General Family Medicine 03/08/21 Cardiologist Relationship Specialty Start Date End Date Burt Ramos MD [address] [place] [address] PCP - General Family Medicine 03/08/21 Bev Baer, TISH.VETERINARY INSPECTOR [address] [place] [address] [employer] Family [facility] 07/28/24 Sammy Parker APRN.VETERINARY INSPECTOR [address] [place] [address] [employer] Family [facility] 08/06/24 Cardiologist Relationship Specialty Start Date End Date Burt Ramos MD [address] [place] [address] PCP - General Family Medicine 03/08/21 Bev Baer APRN.VETERINARY INSPECTOR [address] [place] [address] [employer] Family [facility] 07/28/24 Sammy Parker APRN.VETERINARY INSPECTOR [address] [place] [address] [employer] Family Medicine 08/06/24 Cardiologist Relationship Specialty Start Date End Date Burt Ramos MD [address] [place] [address] PCP - General Family Medicine 03/08/21 Bev Baer APRN.VETERINARY INSPECTOR [address] [place] [address] [employer] Family Medicine 07/28/24 Sammy Parker APRN.VETERINARY INSPECTOR [address] [place] [address] [employer] Family Medicine 08/06/24 Cardiologist Relationship Specialty Start Date End Date Burt Ramos MD [address] [place] [address] PCP - General Family Medicine 03/08/21 Sammy Parker APRN.VETERINARY INSPECTOR [address] [place], [place] [id number] [employer] Family Medicine 08/06/24 Reason for Visit (unrecogniz ed section and content) Reason Comments Ear Infection Reason Onset Date Comments Refill Request 05/23/2022 Reason Onset Date Comments Refill Request 08/22/2022 Reason Comments Results Reason Comments Yearly Exam Reason Comments Low Testosterone Specialty Diagnoses / Procedures Referred By Contac t Referred To Contact Endocrinology Diagnoses Hypogonadism in male Procedures CONSULT TO ENDOCRINOLOGY OFFICE/OUTPATIENT NEW HIGH MDM 60 MINUTES Sammy Parker, TISH.VETERINARY INSPECTOR [address] [place] [address] Referral ID Status Reason Start Date Expiration Date V isits Requested Visits Authorized [id number] Closed PCP Requested Referral 04/01/2024 04/01/2025 1 1 Reason Onset Date Comments Refill Request 08/25/2024 Reason Comments Medical Nutrition Therapy Hyperlipidemia Patient Education Specialty Diagnoses / Procedures Referred By Contac t Referred To Contact Nutrition Diagnoses Hyperlipidemia, unspecified hyperlipidemia type Procedures CONSULT TO NUTRITION THERAPY MEDICAL NUTRITION ASSMT&IVNTJ INDIV EACH 15 ID Sammy Parker, TISH.VETERINARY INSPECTOR [address] [place] [address] Phone: tel: fax: Referral ID Status Reason Start Date Expiration Date Visits Requested Visits Authorized [id number] Authorized PCP Requested Referral 09/27/2024 09/27/2025 1 4 (unrecognized sect ion and content) No Status Records FoundNo Status Records FoundNo Status Records FoundNo Status Records Found INFORMATION SOURCE (unrecogn ized section and content) DATE CREATED AUTHOR 01/29/2023 [facility] DATE CREATED AUTHOR AUTHOR'S ORGANIZ ATION 08/18/2023 [facility] DATE CREATED AUTHOR AUTHOR'S ORGANIZ ATION 10/15/2024 [facility] nt DATE CREATED AUTHOR AUTHOR'S ORGANIZ ATION 05/13/2025 [facility] Goals (unrecognized section and content) Goals may be documented in a n alternate section FOR RECORDS PERTAINING TO PATIENTS WHO ARE [...] BE BASED ON THE PRIMARY CLINICAL RECORDS. [facility] [employer]Original [facility]. provides no warranty or guarantee of the accuracy or completeness of information in this document.
[2025-06-12 02:16] LABS: Troponin T High Sensitivity < 6 ng/L (<=22)
[2025-06-12 02:18] LABS: Lipase 43 U/L (13-75)
[2025-06-12 02:26] VITALS: BP 138/93; PULSE 72; RESP 16; O2SAT 98
[2025-06-12 02:47] LABS: AST(SGOT) 20 U/L (<=37); Alanine Aminotransfer ALT/SGPT 16 U/L (<=46); Albumin, Serum 3.9 g/dL (3.5-5.0); Alkaline Phosphatase 88 U/L (40-129); Anion Gap 10 (5-15); BUN 21 mg/dL (4-19); BUN/Creat Ratio 15.0 RATIO (10-20); Bilirubin, Direct < 0.08 mg/dL (0.00-0.30); Calcium,Total 8.9 mg/dL (7.6-11.0); Carbon Dioxide 26.2 mmol/L (21.0-32.0); Chloride 105 mmol/L (98-108); Estimated Creatinine Clearance 98.56 ml/min (50-250); Globulin 2.8 g/dL (2.2-4.2); Glucose 109 mg/dL (70-99); Potassium 3.8 mmol/L (3.3-5.1)
[2025-06-12] MEDS: Lidocaine 2% Viscous15 ML UDC 15 ML PO (02:59)
[2025-06-12 03:00] VITALS: BP 147/96; PULSE 70; RESP 18; O2SAT 98
[2025-06-12 03:56] LABS: Troponin T High Sens 2 HR < 6 ng/L (<=22)
[2025-06-12 04:00] VITALS: BP 139/93; PULSE 73; RESP 16; O2SAT 94
--- NOTE | 2025-06-12 04:20 | EX.ED.DYSGE1 ---
HPI History of Present Illness Chief Complaint: Chest Pain Informant: patient Narrative Narrative: Patient is a 39-year-old male with past medical history of anxiety and depression. He states he was sleeping and awoke from sleep with sensation of midsternal chest discomfort. He describes it as a dull pain. He states there is no radiation such as to his neck arms or back. He denies any associated nausea vomiting diaphoresis or shortness of breath. He states has been no recent trauma or excessive activity. He denies any recent travel surgery or history of DVT/PE. He states his father had coronary artery disease and required quintuple bypass at roughly age 65. Secondary to that history and his chest discomfort he was concerned that this could be cardiac in nature and therefore comes in for evaluation. Patient denies any excessive stimulant use or illicit drug use [facility] Medical History Depression Anxiety Asthma Home Medications Medication Instructions Recorded Last Taken Type sertraline 100 mg tablet 100 mg PO DAILY 08/16/23 Unknown History bupropion HCl 150 mg 24 hr tablet, 150 mg PO DAILY 06/12/25 Unknown History extended release Allergy/AdvReac Type Severity Reaction Status Date / Time nut - unspecified (nuts) Allergy Other Verified 06/12/25 01:26 Social History Smoking Status: Never smoker ROS ROS ED Constitutional Constitutional ED: Denies chills or fever(s) Eyes Eyes: Denies change in vision ENT ENT ED: Denies sore throat Cardiovascular Cardiovascular: Reports chest pain; Denies palpitations or racing heartbeat Respiratory/Chest Respiratory/Chest: Denies cough or dyspnea Gastrointestinal Gastrointestinal: Denies abdominal pain, diarrhea, nausea or vomiting Musculoskeletal Musculoskeletal: Denies back pain or myalgias Integumentary Denies rash Neurologic Neurologic: Denies headache(s) Hematologic/Lymphatic Hematologic/Lymphatic: Denies easy bleeding or easy bruising EXAM Physical Exam Const Vital Signs: 06/12/25 01:26 06/12/25 02:26 06/12/25 03:00 Temperature 97.5 F L Temperature Source Oral Pulse Rate 71 72 70 Respiratory Rate 18 16 18 Blood Pressure 187/111 H 138/93 H 147/96 H Blood Pressure Mean 136 108 113 Pulse Ox 99 98 98 Oxygen Delivery Method Room Air Room Air Room Air 06/12/25 04:00 Temperature Temperature Source Pulse Rate 73 Respiratory Rate 16 Blood Pressure 139/93 H Blood Pressure Mean 108 Pulse Ox 94 Oxygen Delivery Method Room Air Positive well nourished, well developed and obese General Appearance ED: well developed; Negative for pallor Nutritional Appearance: obese HEENT HEENT Narrative: Normocephalic atraumatic Eyes PERRL and EOMs intact bilaterally General Eye ED: Negative for scleral icterus Neck supple and no JVD Chest Wall palpation of chest normal Chest Narrative: No bony deformity or crepitance noted Resp normal respiratory effort and clear to auscultation bilaterally Cardio regular rate and regular rhythm Rate: other Other Details: Heart is regular rate and rhythm without murmurs rubs or gallop Radial and carotid pulses are equal and symmetric No carotid bruit noted GI normal to inspection, nondistended, normoactive bowel sounds, non-tender, non-distended and no masses GI Narrative: No voluntary guarding or rigidity or pulsatile mass Auscultation: normoactive bowel sounds Palpation: soft Extremity normal to inspection Extremity Narrative: No asymmetric edema no pitting edema negative Homans' sign bilaterally Neuro oriented x3, CN's II-XII intact bilaterally and no sensory deficits noted Sensorium / Orientation: alert Motor Exam: strength 5/5 throughout Psych mental status grossly normal Skin no rashes or lesions noted General Skin Exam: Negative for jaundice or pallor MDM MDM MDM Narrative Medical decision making narrative: Patient arrived to the ER hypertensive otherwise with stable vitals. He reported he was sleeping and awoke with lower midsternal chest discomfort. He states that there is no nausea vomiting diaphoresis or shortness of breath. He denies any radiation of the pain. He states that there is no increased pain with inspiration. Patient also states has been no recent travel or surgery he denies any hormone use or family history of DVT/PE and is PERC negative and therefore I feel no need for a D-dimer. In order to assess for cardiac dysrhythmia he will be kept on the cardiac cath technician. In order to assess for acute coronary syndrome an EKG will be obtained as well as an initial and delta troponin. The EKG showed no STEMI or signs of ischemia. Initial and delta troponin were less than 6 going against active cardiac event. With the pain in the lower mid chest there is potential could be atypical presentation for pancreatitis or gallbladder dysfunction. Lipase is normal going against pancreatitis and liver enzymes are also normal going against biliary dysfunction. In order to rule out lung pathology such as pneumonia or pneumothorax a chest x-ray was obtained. This was also normal. I discussed treating the patient's hypertension as this could be a cause of his symptoms however he states he does not typically have high blood pressure and does not want a medication for it. As there is potential this could be esophageal nature/GERD/gastritis he was given a GI cocktail. On reevaluation he is resting comfortably and his blood pressure has spontaneously improved. He states that there is still a mild to moderate pain present. Because of this we discussed adding a CTA to ensure that with his initial hypertension that we are not missing an atypical presentation for PE or dissection. The patient states that he does not want to have the CT scan performed at this time as his pain has somewhat improved during evaluation in the ER and his blood pressure has also spontaneously improved without treatment. He states his main concern was an EKG and troponins based on his father's cardiac history and as those are normal he feels better knowing that his discomfort tonight was not ACS. Therefore I discussed with patient that if his symptoms are worsening or failing to improve he should return to the ER and we will repeat laboratory studies but this time perform a CTA to ensure there is nothing missed from the initial evaluation. The patient states he is comfortable with this plan and therefore with mild improvement of chest discomfort spontaneous improvement of his blood pressure and workup revealing no signs of ACS or cardiac dysrhythmia he will be discharged home. History & Record Review Discussion w/independent historian: Patient Lab Data Attestation: I reviewed the patient's lab results. Labs: Laboratory Results - last 24 hr 06/12/25 06/12/25 01:33 03:31 WBC 8.8 RBC 5.21 Hgb 14.6 Hct 42.2 MCV 81.0 MCH 28.0 MCHC 34.6 RDW Std Deviation 36.4 RDW Coeff of Rachel 12.4 Plt Count 262 MPV 9.3 Immature Gran % (Auto) 0.300 Neut % (Auto) 57.0 Lymph % (Auto) 30.5 [place] % (Auto) 5.8 Eos % (Auto) 6.2 H Baso % (Auto) 0.2 Absolute Neuts (auto) 5.0 Absolute Lymphs (auto) 2.69 Nucleated RBC % 0 Sodium 141 Potassium 3.8 Chloride 105 Carbon Dioxide 26.2 Anion Gap 10 BUN 21 H Creatinine 1.37 H Estim Creat Clear Calc 98.56 Est GFR (MDRD) Non-Af 67 BUN/Creatinine Ratio 15.0 Glucose 109 H Calcium 8.9 Total Bilirubin 0.21 Direct Bilirubin < 0.08 AST 20 ALT 16 Alkaline Phosphatase 88 Troponin T High Sens < 6 Troponin T Hi Sens 2 Hr < 6 Total Protein 6.7 Albumin 3.9 Globulin 2.8 Lipase 43 Radiography Diagnostic Testing: Clinical Impression(s) from Imaging Studies Chest X-Ray 06/12/25 01:50 IMPRESSION: No focal consolidations. Reading Location: [facility] 2 view chest x-ray as interpreted by the emergency medicine physician reveals no acute infiltrate pneumothorax pleural effusion or widening the mediastinum. Discharge Plan Triage Chief Complaint: Chest Pain ED Provider: Robson Floyd Dx/Rx/DC Orders Clinical Impression: Nonspecific chest pain, Hypertension, Anxiety and depression Instructions: ED Chest Pain, Uncertain Cause Prescriptions: No Action sertraline 100 mg tablet 100 mg PO DAILY Patient Comments: TAKE 1 TABLET BY MOUTH EVERY DAY bupropion HCl 150 mg tablet extended release 24 hr 150 mg PO DAILY Primary Care Provider: Edis Gay Referrals: Edis Gay MD [Primary Care Provider, Family Practice] Activity Restrictions/Additional Instructions: Your workup today did not reveal any signs of active heart damage or abnormal heart rhythm. Laboratory studies do not indicate pancreatitis or gallbladder dysfunction. Chest x-ray did not reveal any lung pathology such as pneumonia. If symptoms persist or worsen please return to the ER for repeat evaluation Print Language: Spanish Disposition Disposition: Home, Self Care Discharge Date/Time: 06/12/25 04:25
[2025-06-12 04:22] VITALS: BP 139/93; PULSE 73; RESP 16; TEMP 36.4; O2SAT 94
== END 2025-06-12 04:25 | disposition home or self-care (01) ==
PROVIDERS: Emergency Provider Emergency Medicine; PCP Family Medicine; Visit Provider Emergency Medicine
DX: R07.9 Chest pain, unspecified (principal); I10 Essential (primary) hypertension; J45.909 Unspecified asthma, uncomplicated; F32.A Depression, unspecified; F41.9 Anxiety disorder, unspecified; Z79.899 Other long term (current) drug therapy
CPT/HCPCS: 71046; 80048; 80076; 83690; 84484; 85025; 93005; 99283; A4216